=== PATIENT | male | born 2000 | race Hispanic/Latino ===

== ENCOUNTER 2023-07-22 19:39 | Observation (INO) | payer MEDICAID ==
[~2023-07-22] VITALS: Ht 167.6 cm; Wt 52.3 kg
[2023-07-22 21:03] LABS: BASOPHILS # (AUTO) 0.09 K/uL (0.00-0.20); BASOPHILS % (AUTO) 0.4 % (0.0-5.0); EOSINOPHILS # (AUTO) 0.01 K/uL (0.00-0.70); HEMATOCRIT 47.4 % (42-54); IMMATURE GRANULOCYTE ABSOLUTE 0.23 K/uL (0-1); LYMPHOCYTES # (AUTO) 1.8 K/uL (1.0-4.8); LYMPHOCYTES % (AUTO) 8.8 % (21.0-51.0); MEAN CORPUSCULAR HEMOGLOBIN 30.4 pg (27.0-33.0); MEAN CORPUSCULAR HGB CONC 34.4 g/dL (32.0-36.0); MEAN CORPUSCULAR VOLUME 88.4 fL (79-99); MONOCYTES # (AUTO) 1.1 K/uL (0.1-1.0); MONOCYTES % (AUTO) 5.4 % (3.0-13.0); NEUTROPHILS # (AUTO) 17.5 K/uL (1.8-7.7); NEUTROPHILS % (AUTO) 84.3 % (40.0-77.0); PLATELET COUNT (AUTO) 260 K/uL (130-400); RED BLOOD CELL COUNT(AUTO) 5.36 MIL/uL (4.50-6.20); RED CELL DISTRIBUTION WIDTH 13.2 % (11.0-15.5); WHITE BLOOD COUNT (AUTO) 20.8 K/uL (4.8-10.8)
[2023-07-22 21:16] LABS: APPEARANCE,URINE CLOUDY (CLEAR); BILIRUBIN,URINE NEGATIVE (NEGATIVE); COLOR,URINE YELLOW (YELLOW); GLUCOSE, URINE (UA) NEGATIVE (NEGATIVE); KETONES,URINE 60 mg/dL (NEGATIVE); LEUKOCYTE ESTERASE ,URINE NEGATIVE Leu/uL (NEGATIVE); NITRATE,URINE NEGATIVE (NEGATIVE); OCCULT BLOOD,URINE NEGATIVE (NEGATIVE); PROTEIN,URINE 30 mg/dL (NEGATIVE)
[2023-07-22 21:17] LABS: ADD UA MICROSCOPIC YES
[2023-07-22 21:19] LABS: AMPHET/METH SCREEN,URINE NEGATIVE (NEGATIVE); BARBITURATE SCREEN, URINE NEGATIVE (NEGATIVE); BENZODIAZEPINES SCREEN,URINE NEGATIVE (NEGATIVE); CANNABINOID SCREEN,URINE POSITIVE (NEGATIVE); COCAINE SCREEN,URINE NEGATIVE (NEGATIVE); OPIATE SCREEN,URINE NEGATIVE (NEGATIVE); PHENCYCLIDINE SCREEN,URINE NEGATIVE (NEGATIVE)
[2023-07-22 21:20] LABS: BACTERIA,URINE RARE /HPF (None Seen); MUCUS,URINE MOD LPF (None Seen); OTHER CASTS, URINE 4 /LPF (None Seen); UNCLASSIFIED CRYSTAL 3 /HPF (None Seen); WBC CLUMP FEW /HPF (0-1); YEAST,URINE BUDDING MOD /HPF (None Seen)
[2023-07-22 21:24] LABS: POTASSIUM 3.1 mmol/L (3.5-5.1)
[2023-07-22 21:29] LABS: ALBUMIN 4.7 g/dL (3.5-5.0); TOTAL PROTEIN, SERUM 8.6 g/dL (6.0-8.3)
[2023-07-22] MEDS ORDERED: ONDANSETRON 4MG INJ IVP ONE (21:30)
[2023-07-22] MEDS ORDERED: ZOSYN 3.375GM +NS 50ML IVPB SCH (21:30)
[2023-07-22] MEDS ORDERED: 0.9%NACL 1000ML 2,000 ML IV ONE (21:30)
[2023-07-22] MEDS ORDERED: MORPHINE 4 MG SYG IVP ONE (21:30)
[2023-07-22 21:39] LABS: RAPID GROUP A STREP negative (NEGATIVE)
[2023-07-22] MEDS ORDERED: 0.9%NACL 1000ML 1,000 ML IV ONE (21:39)
[2023-07-22] MEDS ORDERED: MORPHINE 4 MG SYG ONE (21:40)
[2023-07-22 21:42] LABS: SARS-CoV-2, RNA, NAAT NEGATIVE SARS CoV-2 (NEGATIVE)
[2023-07-22 21:46] LABS: INFLUENZA TYPE A Negative For Type A (NEGATIVE); INFLUENZA TYPE B Negative For Type B (NEGATIVE)
[2023-07-22] MEDS ORDERED: IOHEXOL 350 MG/ML 100ML INFUS..BTL IV ONE (21:54)
[2023-07-22] MEDS ORDERED: POTASSIUM BICARB/CIT AC 25 MEQ TABLET.EFF PO ONE (22:30)
[2023-07-23] VITALS (7 sets, daily range): BP systolic 120–145; BP diastolic 63–85; PULSE 63–73; RESP 16–20; O2SAT 96
[2023-07-23] MEDS: ZOSYN 3.375GM +NS 50ML IVPB SCH ×3 (02:30→18:54)
[2023-07-23] MEDS ORDERED: MORPHINE 2 MG SYG IVP PRN (02:30)
[2023-07-23] MEDS ORDERED: ONDANSETRON 4MG INJ IV PRN (02:30)
[2023-07-23] MEDS ORDERED: ACETAMINOPHEN 325 MG TAB PO PRN ×2 (02:30)
[2023-07-23] MEDS: 0.9%NACL 1000ML 1,000 ML IV SCH ×2 (02:39→20:58)
[2023-07-23 06:37] LABS: HEMATOCRIT 40.7 % (42-54); MEAN CORPUSCULAR HEMOGLOBIN 30.1 pg (27.0-33.0); MEAN CORPUSCULAR HGB CONC 33.4 g/dL (32.0-36.0); RED BLOOD CELL COUNT(AUTO) 4.52 MIL/uL (4.50-6.20); RED CELL DISTRIBUTION WIDTH 13.4 % (11.0-15.5); WHITE BLOOD COUNT (AUTO) 12.2 K/uL (4.8-10.8)
[2023-07-23 06:47] LABS: PROTHROMBIN TIME 11.6 SEC (9.6-11.6)
[2023-07-23 06:48] LABS: PARTIAL THROMBOPLASTIN TIME 28.2 SEC (26.3-35.5)
[2023-07-23 06:49] LABS: ALBUMIN 3.7 g/dL (3.5-5.0); CREATININE 0.9 mg/dL (0.5-1.5); POTASSIUM 3.6 mmol/L (3.5-5.1); TOTAL PROTEIN, SERUM 6.7 g/dL (6.0-8.3)
[2023-07-23] MEDS ORDERED: 0.9%NACL 50ML IV SCH (09:00)
[2023-07-23] MEDS: FAMOTIDINE 20MG VIAL IV SCH ×2 (09:07→20:58)
[2023-07-24] MEDS: ZOSYN 3.375GM +NS 50ML IVPB SCH ×2 (01:39→09:53)
[2023-07-24 04:00] VITALS: BP 115/51; PULSE 56; RESP 18
[2023-07-24 05:52] LABS: BASOPHILS # (AUTO) 0.09 K/uL (0.00-0.20); BASOPHILS % (AUTO) 0.9 % (0.0-5.0); EOSINOPHILS # (AUTO) 0.19 K/uL (0.00-0.70); EOSINOPHILS % (AUTO) 1.8 % (0.0-8.0); HEMATOCRIT 41.9 % (42-54); IMMATURE GRANULOCYTE ABSOLUTE 0.08 K/uL (0-1); LYMPHOCYTES # (AUTO) 3.3 K/uL (1.0-4.8); MEAN CORPUSCULAR HGB CONC 33.7 g/dL (32.0-36.0); MEAN CORPUSCULAR VOLUME 89.1 fL (79-99); MONOCYTES # (AUTO) 0.9 K/uL (0.1-1.0); MONOCYTES % (AUTO) 8.2 % (3.0-13.0); NEUTROPHILS # (AUTO) 5.9 K/uL (1.8-7.7); NEUTROPHILS % (AUTO) 56.3 % (40.0-77.0); PLATELET COUNT (AUTO) 205 K/uL (130-400); WHITE BLOOD COUNT (AUTO) 10.4 K/uL (4.8-10.8)
[2023-07-24 06:14] LABS: BILIRUBIN,TOTAL 1.7 mg/dL (0.2-1.0); CREATININE 1.1 mg/dL (0.5-1.5); POTASSIUM 3.8 mmol/L (3.5-5.1); TOTAL PROTEIN, SERUM 7.3 g/dL (6.0-8.3)
[2023-07-24 08:00] VITALS: BP 115/71; PULSE 83; RESP 16; O2SAT 96
[2023-07-24] MEDS: 0.9%NACL 1000ML 1,000 ML IV SCH (08:30)
[2023-07-24] MEDS: FAMOTIDINE 20MG VIAL IV SCH (09:51)
[2023-07-24] MEDS ORDERED: CEPH500C2 PO (10:02)
[2023-07-24 11:59] VITALS: BP 117/58; PULSE 59; RESP 16
[2023-07-24 16:00] VITALS: BP 137/70; PULSE 67; RESP 18
== END 2023-07-24 17:50 | disposition home or self-care (01) ==
LOC: EDH 19:39 → EDHIP 19:40 → INTOOBSV 19:40 → 3BH 07-23 02:45
PROVIDERS: ADMIT Hospitalist; ATTEND Hospitalist
DX: K52.9 Noninfective gastroenteritis and colitis, unspecified (principal); Z20.822 Contact with and (suspected) exposure to COVID-19; D72.829 Elevated white blood cell count, unspecified; E87.6 Hypokalemia; E86.0 Dehydration; N39.0 Urinary tract infection, site not specified; F12.90 Cannabis use, unspecified, uncomplicated; Z79.899 Other long term (current) drug therapy
CPT/HCPCS: 96365; 96366 ×3; 96375 ×2; 99285; 80053 ×3; 80305; 83690; 85025 ×2; 87040 ×2; 87088; 87880; 87804 ×2; 83605; 81001; 36415 ×3; 87635; 74177; 96376 ×2; 96361 ×2; 85027; 85610; 85730; 84145; C9803; J7030 ×3; J2405; J2270 ×2; J2543 ×5; Q9967; G0378 ×23; S0028 ×3; J3490

== ENCOUNTER 2025-01-21 11:58 | Emergency (ER) | payer SELFPAY ==
[~2025-01-21] VITALS: Ht 165.1 cm; Wt 59.0 kg
[~2025-01-21 11:58] MED LIST: CEPH500C2 PO
--- NOTE | 2025-01-21 12:05 | ERN ---
ED Note History of Present Illness Stated Complaint: LEFT ANKLE PAIN Time Seen by MD: 12:00 Dictation: PATIENT IS A 24-YEAR-OLD MALE WITH DORSAL LEFT FOOT PAIN AFTER HE TWISTED IT AND FOOTBALL LAST NIGHT WHILE HE WAS PLAYING IN THE DARK. HE SAID HE WENT TO MAKE A TURN AND HE TWISTED HIS FOOT. DID NOT GO TO THE HOSPITAL LAST NIGHT BECAUSE HIS MOTHER WAS IN [place] TAKING CARE OF ANOTHER RELATIVE AND HE HAD NO RIDE TO THE HOSPITAL. HE HAS NOT TAKEN ANYTHING PRIOR TO ARRIVAL FOR PAIN. SKIN IS INTACT Allergies: Coded Allergies: No Known Allergies (Unverified Allergy, Unknown, 07/22/23) Home Meds Active Scripts Ibuprofen (Ibuprofen 800 mg Tab) 800 Mg Tab, 800 MG PO Q8H PRN for fever or pain, #30 TAB 0 Refills Prov:JOAQUIN CASIANO CAPACITY ANALYST 01/21/25 Cephalexin (Cephalexin) 500 Mg Capsule, 500 MG PO BID, #10 CAP 0 Refills Prov:GRACIA BINGHAM [employer] 07/24/23 Past Medical History Past Medical History: No Pertinent History Surgical History: None RN Note Reviewed/Agreed w/PFSH: Yes Review of System Dictation CONSTITUTIONAL: NEGATIVE EXCEPT FOR HPI HEAD/FACE: NEGATIVE EXCEPT FOR HPI EENT: NEGATIVE EXCEPT FOR HPI RESPIRATORY: NEGATIVE EXCEPT FOR HPI GASTROINTESTINAL/ABDOMINAL: NEGATIVE EXCEPT FOR HPI GENITOURINARY: NEGATIVE EXCEPT FOR HPI MUSCULOSKELETAL: NEGATIVE EXCEPT FOR HPI LEFT FOOT PAIN INTEGUMENTARY: NEGATIVE EXCEPT FOR HPI NEUROLOGICAL/PSYCH: NEGATIVE EXCEPT FOR HPI HEMATOLOGIC/LYMPHATIC: NEGATIVE EXCEPT FOR HPI ALL SYSTEMS NEGATIVE, EXCEPT NOTED ABOVE. 13 POINT REVIEW OF SYSTEMS ASSESSED AND ALL NEGATIVE EXCEPT FOR ABOVE. Initial Vital Sign VS Vital Signs Date Time Temp Pulse Resp B/P (MAP) Pulse Ox O2 Delivery O2 Flow Rate FiO2 01/21/25 12:03 98.1 68 16 111/76 96 Room Air 0 01/21/25 12:07 21 Physical Exam Dictation VITAL SIGNS REVIEWED GENERAL APPEARANCE: ALERT, ORIENTED X 3, MILD ACUTE DISTRESS, WELL DEVELOPED, NOURISHED. HEAD AND FACE: NON-TRAUMATIC. EYES: PERRL, PINK CONJUNCTIVAS, EYELID NO TRAUMA, ANTERIOR CHAMBER WITH ARCUS SENILIS. EARS: PINNAS INTACT AND NO SIGNS OF TRAUMA OR ERYTHEMA EAR CANALS CLEAR AND NO DISCHARGE TM NO ERYTHEMA NOSE: NO DISCHARGE, NO BLEEDING. OROPHARYNX: MOUTH NORMAL, TONGUE PINK, PHARYNX CLEAR,NO ERYTHEMA, TONSILS NO EXUDATES, NO ABSCESSES NOTED, MUCOUS MEMBRANE MOIST NECK: SUPPLE, NON-TENDER, NO THYROMEGALY, NO MASSES, NO JVD, NO BRUITS BREAST:DEFERRED CHEST:NO TENDERNESS, NO CREPITUS, NO PARADOXICAL MOVEMENT, NO RETRACTIONS LUNGS:CLEAR, WELL-VENTILATED, SYMMETRIC, NO RALES, NO WHEEZING, NO RHONCHI, NO STRIDOR, GOOD BREATH SOUNDS BILATERALLY HEART: REGULAR RATE, REGULAR RHYTHM, NO MURMUR, NO GALLOPS VASCULAR: NO PERIPHERAL EDEMA, ABDOMEN: SOFT, POSITIVE BOWEL SOUNDS, NONDISTENDED, NO GUARDING, NONTENDER, NO REBOUND, NO MASSES NO HEPATOMEGALY, NO SPLENOMEGALY, NO MADRID'S SIGN, NO HERNIAS. RECTAL: DEFERRED GENITAL: DEFERRED NEUROLOGICAL: NORMAL SPEECH, MOTOR FUNCTION INTACT, SENSORY FUNCTION INTACT MUSCULOSKELETAL: NECK NONTENDER, FULL RANGE OF MOTION, BACK NONTENDER, FULL RANGE OF MOTION, EXTREMITIES: MILD LEFT DORSAL FOOT TENDERNESS TO 1ST 2ND AND 3RD METATARSALS. SKIN INTACT DECREASED RANGE OF MOTION SECONDARY TO PAIN SKIN: COLOR PINK, DRY, NO TURGOR, NO RASH, NO LACERATIONS, NO ABRASIONS, NO CONTUSIONS. LYMPHATIC: DEFERRED Results (Laboratory/Radiology) Laboratory/Radiology 1140/left foot x-ray negative Labs Reviewed?: Yes ED Course ED Course Orders Procedure Category Date Status Time Foot Comp 3+Vws Lt RAD 01/21/25 Resulted 12:02 Ibuprofen 800 Mg Tab PHA 01/21/25 Complete (Motrin) 12:30 Crutches W/Training CPOE 01/21/25 Transmitted (Er) 12:02 Current Medications Medications (Trade) Dose Ordered Sig/[place] Route PRN Reason Start Time Stop Time Status Last Admin Dose Admin Ibuprofen (moTRIN) 800 mg ONCE ONCE PO 01/21/25 12:30 01/21/25 12:31 DC 01/21/25 12:50 Vital Signs Date Time Temp Pulse Resp B/P (MAP) Pulse Ox O2 Delivery O2 Flow Rate FiO2 01/21/25 12:07 98.1 68 16 111/76 98 Room Air* 0 21 01/21/25 12:03 98.1 68 16 111/76 96 Room Air 0 1142/patient discharged home on crutches with ibuprofen told to follow up with in the next 2-3 days, call for an appointment. No weight-bearing until cleared Medical Decision Making MDM Medical discharge making based on pain management and x-ray of left foot. X-ray negative Diagnosed with left foot sprain Provided with crutches and no weight-bearing instructions until cleared by Orthopedics DX & DISP Disposition: Discharge Departure Impression: Primary Impression: Sprain of left foot Condition: Stable Scripts Ibuprofen (Ibuprofen 800 mg Tab) 800 Mg Tab 800 MG PO Q8H PRN for fever or pain, #30 TAB 0 Refills Prov: JOAQUIN CASIANO NP 01/21/25 Additional Instructions: Follow-up with primary care provider in 1 to 2 days. Take medications as directed here in the emergency room. Okay to continue home medications unless otherwise discussed during your visit in the emergency room today. Return to your nearest emergency room if symptoms worsen or if there is no improvement. Call 911 if you need immediate assistance. Take Tylenol or Motrin [id number] as needed and if no contraindications are present. Increase oral hydration. A wound culture or urine culture was ordered here in the emergency room department please follow-up with primary care provider and advise them to get repeat ports from our facility. If you had any Marshal wrap/splints that were applied here, please do not remove them until you see your primary care or specialty. Crutches no weight-bearing until cleared by Orthopedics, call for an appointment on Thursday. Cool compresses to left foot three to 4 times a day. Take ibuprofen as needed for pain with food. Referrals: SELF,REFERRAL (PCP) GERALDINE HUTCHINS MD Time of Disposition: 12:44 I have reviewed the case, and I agree with, Diagnosis and Plan JOAQUIN CASIANO NP Jan 21, 2025 12:05 RHYS NAVARRETE DO Jan 23, 2025 07:35
[2025-01-21 12:07] VITALS: BP 111/76; PULSE 68; RESP 16; TEMP 98; O2SAT 98
[2025-01-21] MEDS ORDERED: IBUP-2077 PO (12:45)
[2025-01-21] MEDS: ibuPROFEN 800 MG TAB PO ONE (12:50)
--- NOTE | 2025-01-21 21:43 | HMCIMG ---
LEFT FOOT RADIOGRAPHS - 3 VIEWS INDICATION: Dorsal foot tenderness COMPARISON: None FINDINGS: AP, lateral, and oblique views. Examination provided for interpretation at 9:41 PM on 01/21/2025. No fracture or subluxation identified. Midfoot alignment is well maintained. No radiopaque foreign body noted. IMPRESSION: No evidence for fracture or subluxation.
== END 2025-01-21 13:11 | disposition home or self-care (01) ==
LOC: EDH 11:58
DX: S93.692A Other sprain of left foot, initial encounter (principal); Z79.899 Other long term (current) drug therapy; X50.1XXA Overexertion from prolonged static or awkward postures, initial encounter; Y93.89 Activity, other specified; Y92.89 Other specified places as the place of occurrence of the external cause; Y99.8 Other external cause status
CPT/HCPCS: 73630; 99283

== ENCOUNTER 2025-03-19 10:26 | Inpatient (IN) | payer SELFPAY ==
[~2025-03-19] VITALS: Ht 167.6 cm; Wt 54.4 kg
[~2025-03-19 10:26] MED LIST changes: +IBUP-2077 PO
--- NOTE | 2025-03-19 10:42 | ERN ---
ED Note History of Present Illness Stated Complaint: ABDOMINAL PAIN Chief Complaint: Abdominal Pain Time Seen by MD: 10:30 Dictation: Patient is a 24-year-old male here with complaints of acute onset of periumbilical right lower quadrant pain tenderness. Onset was 0 400 this morning he denies nausea vomiting no diarrhea. No flank pain no change in urination. Allergies: Coded Allergies: No Known Allergies (Unverified Allergy, Unknown, 07/22/23) Home Meds Active Scripts Ibuprofen (Ibuprofen 800 mg Tab) 800 Mg Tab, 800 MG PO Q8H PRN for fever or pain, #30 TAB 0 Refills Prov:JOAQUIN CASIANO ADDICTIONS RECOVERY SPECIALIST 01/21/25 Cephalexin (Cephalexin) 500 Mg Capsule, 500 MG PO BID, #10 CAP 0 Refills Prov:GRACIA BINGHAM POCKET OPERATOR 07/24/23 Past Medical History Past Medical History: No Pertinent History Surgical History: None RN Note Reviewed/Agreed w/PFSH: Yes Review of System Dictation CONSTITUTIONAL: Negative except for HPI HEAD/FACE: Negative except for HPI EENT: Negative except for HPI RESPIRATORY: Negative except for HPI GASTROINTESTINAL/ABDOMINAL: Negative except for HPI periumbilical and right lower quadrant pain tenderness GENITOURINARY: Negative except for HPI MUSCULOSKELETAL: Negative except for HPI INTEGUMENTARY: Negative except for HPI NEUROLOGICAL/PSYCH: Negative except for HPI HEMATOLOGIC/LYMPHATIC: Negative except for HPI All Systems Negative, Except as noted above. 13 point review of systems assessed and all negative except for above. Initial Vital Sign VS Vital Signs Date Time Temp Pulse Resp B/P (MAP) Pulse Ox O2 Delivery O2 Flow Rate FiO2 03/19/25 10:36 97.2 70 18 121/73 100 Room Air 0 03/19/25 11:00 21 Physical Exam Dictation Vital Signs reviewed General Appearance: Alert, oriented x 3, moderate acute distress, well developed, nourished. Head and Face: non-traumatic. Eyes: PERRL, pink conjunctivas, eyelid no trauma, anterior chamber with arcus senilis. Ears: Pinnas intact and no signs of trauma or erythema ear canals clear and no discharge TM no erythema Nose: No discharge, no bleeding. Oropharynx: Mouth normal, tongue pink, pharynx clear,no erythema, tonsils no exudates, no abscesses noted, mucous membrane moist Neck: Supple, non-tender, no thyromegaly, no masses, no JVD, no bruits Breast:Deferred Chest:No tenderness, no crepitus, no paradoxical movement, no retractions Lungs:Clear, well-ventilated, symmetric, no rales, no wheezing, no rhonchi, no stridor, good breath sounds bilaterally Heart: Regular rate, regular rhythm, no murmur, no gallops Vascular: no peripheral edema, Abdomen: Soft, positive bowel sounds, nondistended, no guarding, Moderate periumbilical tenderness without rebound. Rectal: Deferred Genital: Deferred Neurological: Normal speech, motor function intact, sensory function intact Musculoskeletal: Neck nontender, full range of motion, back nontender, full range of motion, Extremities: nontender, full range of motion Skin: Color pink, dry, no turgor, no rash, no lacerations, no abrasions, no contusions. Lymphatic: Deferred Results (Laboratory/Radiology) Laboratory/Radiology Laboratory Tests Test 03/19/25 11:04 03/19/25 11:44 03/19/25 15:56 03/19/25 21:17 White Blood Count 22.9 K/uL (4.8-10.8) H Red Blood Count 5.32 MIL/uL (4.50-6.20) Hemoglobin 16.1 g/dL (14.0-18.0) Hematocrit 46.6 % (42-54) Mean Corpuscular Volume 87.6 fL (79-99) Mean Corpuscular Hemoglobin 30.3 pg (27.0-33.0) Mean Corpuscular Hemoglobin Concent 34.5 g/dL (32.0-36.0) Red Cell Distribution Width 12.7 % (11.0-15.5) Platelet Count 278 K/uL (130-400) Mean Platelet Volume 10.4 fL (7.5-10.5) Immature Granulocyte % (Auto) 1.4 % (0-1) H Neutrophils (%) (Auto) 81.8 % (40.0-77.0) H Lymphocytes (%) (Auto) 12.6 % (21.0-51.0) L Monocytes (%) (Auto) 3.8 % (3.0-13.0) Eosinophils (%) (Auto) 0.0 % (0.0-8.0) Basophils (%) (Auto) 0.4 % (0.0-5.0) Neutrophils # (Auto) 18.7 K/uL (1.8-7.7) H Lymphocytes # (Auto) 2.9 K/uL (1.0-4.8) Monocytes # (Auto) 0.9 K/uL (0.1-1.0) Eosinophils # (Auto) 0.00 K/uL (0.00-0.70) Basophils # (Auto) 0.09 K/uL (0.00-0.20) Absolute Immature Granulocyte (auto 0.33 K/uL (0-1) Nucleated Red Blood Cells 0.0 % (0.0-0.19) Erythrocyte Sedimentation Rate 1 MM/HR (0-15) Prothrombin Time 10.7 SEC (9.6-11.6) Prothromb Time International Ratio 1.01 (0.85-1.15) Activated Partial Thromboplast Time 23.5 SEC (26.3-35.5) L Sodium Level 141 mmol/L (136-145) 138 mmol/L (136-145) Potassium Level 3.4 mmol/L (3.5-5.1) L 3.8 mmol/L (3.5-5.1) Chloride Level 100 mmol/L (101-111) L 106 mmol/L (101-111) Carbon Dioxide Level 16 mmol/L (21-32) L 19 mmol/L (21-32) L Blood Urea Nitrogen 18 mg/dL (7-18) 15 mg/dL (7-18) Creatinine 1.4 mg/dL (0.5-1.3) H 1.2 mg/dL (0.5-1.3) Glomerular Filtration Rate Calc 72 mL/min (>90) 87 mL/min (>90) Random Glucose 92 mg/dL (70-105) 78 mg/dL (70-105) Total Calcium 9.7 mg/dL (8.5-10.1) 8.7 mg/dL (8.5-10.1) Magnesium Level 1.90 mg/dL (1.80-2.40) Total Bilirubin 0.7 mg/dL (0.2-1.0) Direct Bilirubin 0.1 mg/dL (0.0-0.3) Aspartate Amino Transf (AST/SGOT) 18 U/L (10-37) Alanine Aminotransferase (ALT/SGPT) 18 U/L (12-78) Alkaline Phosphatase 72 U/L (50-136) Lactate Dehydrogenase 152 U/L (81-234) C-Reactive Protein, Quantitative 0.70 mg/L (0.5-3.0) Total Protein 7.9 g/dL (6.0-8.3) Albumin 4.6 g/dL (3.5-5.0) Lipase 19 U/L (16-77) Procalcitonin < 0.05 ng/mL (0.05-0.5) L Lactic Acid Level 6.5 mmol/L (0.8-2.5) H 1.5 mmol/L (0.8-2.5) Test 03/19/25 21:20 03/20/25 07:08 03/20/25 08:18 03/21/25 04:38 Urine Color LIGHT-YELLOW (YELLOW) Urine Appearance CLEAR (CLEAR) Urine pH 5.5 (5.0-8.0) Urine Specific [place] 1.045 (1.001-1.031) Urine Protein NEGATIVE mg/dL (NEGATIVE) Urine Glucose (UA) NEGATIVE mg/dL (NEGATIVE) Urine Ketones 150 mg/dL (NEGATIVE) H Urine Occult Blood NEGATIVE (NEGATIVE) Urine Nitrate NEGATIVE (NEGATIVE) Urine Bilirubin NEGATIVE mg/dL (NEGATIVE) Urine Urobilinogen 0.2 mg/dL (0.2-1.0) Urine Leukocyte Esterase NEGATIVE Sumeet/uL Urine RBC 0-1 /HPF (0-1) Urine WBC 0-1 /HPF (0-1) Urine Squamous Epithelial Cells RARE /HPF (0-2) Urine Bacteria None /HPF (None Seen) Urine Opiates Screen POSITIVE (NEGATIVE) H Urine Barbiturates Screen NEGATIVE (NEGATIVE) Urine Phencyclidine Screen NEGATIVE (NEGATIVE) Urine Amphetamines Screen NEGATIVE (NEGATIVE) Urine Benzodiazepines Screen NEGATIVE (NEGATIVE) Urine Cocaine Screen NEGATIVE (NEGATIVE) Urine Marijuana (THC) Screen POSITIVE (NEGATIVE) H White Blood Count 12.0 K/uL (4.8-10.8) #H 9.6 K/uL (4.8-10.8) Red Blood Count 4.24 MIL/uL (4.50-6.20) #L 4.42 MIL/uL (4.50-6.20) L Hemoglobin 12.8 g/dL (14.0-18.0) #L 13.2 g/dL (14.0-18.0) L Hematocrit 37.8 % (42-54) L 38.2 % (42-54) L Mean Corpuscular Volume 89.2 fL (79-99) 86.4 fL (79-99) Mean Corpuscular Hemoglobin 30.2 pg (27.0-33.0) 29.9 pg (27.0-33.0) Mean Corpuscular Hemoglobin Concent 33.9 g/dL (32.0-36.0) 34.6 g/dL (32.0-36.0) Red Cell Distribution Width 13.0 % (11.0-15.5) 12.2 % (11.0-15.5) Platelet Count 189 K/uL (130-400) # 194 K/uL (130-400) Mean Platelet Volume 10.4 fL (7.5-10.5) 10.3 fL (7.5-10.5) Immature Granulocyte % (Auto) 0.4 % (0-1) 0.3 % (0-1) Neutrophils (%) (Auto) 64.5 % (40.0-77.0) 60.9 % (40.0-77.0) Lymphocytes (%) (Auto) 25.4 % (21.0-51.0) 27.9 % (21.0-51.0) Monocytes (%) (Auto) 8.1 % (3.0-13.0) 9.4 % (3.0-13.0) Eosinophils (%) (Auto) 0.9 % (0.0-8.0) 1.1 % (0.0-8.0) Basophils (%) (Auto) 0.7 % (0.0-5.0) 0.4 % (0.0-5.0) Neutrophils # (Auto) 7.7 K/uL (1.8-7.7) 5.9 K/uL (1.8-7.7) Lymphocytes # (Auto) 3.1 K/uL (1.0-4.8) 2.7 K/uL (1.0-4.8) Monocytes # (Auto) 1.0 K/uL (0.1-1.0) 0.9 K/uL (0.1-1.0) Eosinophils # (Auto) 0.11 K/uL (0.00-0.70) 0.11 K/uL (0.00-0.70) Basophils # (Auto) 0.08 K/uL (0.00-0.20) 0.04 K/uL (0.00-0.20) Absolute Immature Granulocyte (auto 0.05 K/uL (0-1) 0.03 K/uL (0-1) Nucleated Red Blood Cells 0.0 % (0.0-0.19) 0.0 % (0.0-0.19) Sodium Level 135 mmol/L (136-145) L 137 mmol/L (136-145) Potassium Level 3.8 mmol/L (3.5-5.1) 3.6 mmol/L (3.5-5.1) Chloride Level 104 mmol/L (101-111) 103 mmol/L (101-111) Carbon Dioxide Level 22 mmol/L (21-32) 24 mmol/L (21-32) Blood Urea Nitrogen 13 mg/dL (7-18) 8 mg/dL (7-18) Creatinine 1.0 mg/dL (0.5-1.3) 1.0 mg/dL (0.5-1.3) Glomerular Filtration Rate Calc 108 mL/min (>90) 108 mL/min (>90) Random Glucose 74 mg/dL (70-105) 100 mg/dL (70-105) Total Calcium 8.7 mg/dL (8.5-10.1) 8.7 mg/dL (8.5-10.1) Magnesium Level 1.90 mg/dL (1.80-2.40) Total Bilirubin 1.3 mg/dL (0.2-1.0) #H 0.8 mg/dL (0.2-1.0) # Aspartate Amino Transf (AST/SGOT) 17 U/L (10-37) 14 U/L (10-37) Alanine Aminotransferase (ALT/SGPT) 17 U/L (12-78) 15 U/L (12-78) Alkaline Phosphatase 61 U/L (50-136) 58 U/L (50-136) Total Protein 6.7 g/dL (6.0-8.3) 6.8 g/dL (6.0-8.3) Albumin 3.7 g/dL (3.5-5.0) 3.8 g/dL (3.5-5.0) Whole Blood Ketones Quantitative 2.9 mmol/L (0.0-0.6) H Lactic Acid Level 1.3 mmol/L (0.8-2.5) 1.3 mmol/L (0.8-2.5) Total Creatine Kinase 120 U/L (21-232) C-Reactive Protein, Quantitative 4.50 mg/L (0.5-3.0) H 1125/ultrasound inconclusive [place]. [place] [address] white count, we will follow up with CT with contrast to rule out appendicitis acquired for interpretation. CT was performed with one or more of the following dose reduction techniques: Automated exposure control, adjustment of the mA and/or kV according to patient size, or use of iterative reconstruction technique. COMPARISON: None FINDINGS: ABDOMEN: Heart size is normal. Visible lung bases are clear. The liver is normal in size and smooth in contour without lesions or biliary duct dilation. The spleen is normal in size without lesions. The gallbladder appears normal. The pancreas appears normal without pancreatic duct dilation. The adrenal glands appear normal. Both kidneys appear unremarkable. Cortical nephrograms are symmetric and normal in appearance bilaterally. No evidence for intra-abdominal free air or organized fluid collection. No retrocrural, intraabdominal, or retroperitoneal lymphadenopathy identified. No aortic aneurysmal dilation or dissection identified. PELVIS: No evidence for free air or organized pelvic fluid collection. No significant pelvic adenopathy detected. Mild to moderate submucosal edema along the proximal colon and mild along the distal colon some of which may be exaggerated by incomplete distention. Terminal ileum appears normal. The appendix appears normal. The urinary bladder appears unremarkable. Visible osseous structures are intact. IMPRESSION: Suspect mild inflammatory or infectious proximal and distal colitis. Labs Reviewed?: Yes ED Course ED Course Orders Procedure Category Date Status Time Cbc With Differential LAB 03/19/25 Complete 10:40 0.9%Nacl 1000ml (Ns PHA 03/19/25 Complete 1000ml) 11:00 Ketorolac PHA 03/19/25 Complete Tromethamine 30mg/Ml 11:00 Lipase LAB 03/19/25 Complete 10:40 Basic Metabolic Panel LAB 03/19/25 Complete 10:40 Us Abd Limited/Abd US 03/19/25 Resulted Wall 10:40 Blood Cult SATISH 03/19/25 In Process 11:22 Lactic Acid LAB 03/19/25 Complete 11:22 Ct Abdomen/Pelvis CT 03/19/25 Resulted W/Contrast 11:23 Zosyn 3.375gm+Ns 50ml PHA 03/19/25 Complete (Zosyn 3.375gm+Ns 11:30 Iohexol (Omnipaque) PHA 03/19/25 Complete 11:44 0.9%Nacl 1000ml (Ns PHA 03/19/25 Complete 1000ml) 12:30 Edm Admit Bridge Order ADM 03/19/25 Transmitted 12:59 Lactated Ringers PHA 03/19/25 Complete 1000ml (Lactated 15:00 Admit Orders ADM 03/19/25 Transmitted 13:04 Pantoprazole 40mg Inj PHA 03/19/25 Complete (Protonix 40mg Inj 13:30 Hepatic Function Panel LAB 03/19/25 Complete 13:09 Erythrocyte LAB 03/19/25 Complete Sedimentation Rate 13:09 Crp Quantitative LAB 03/19/25 Complete 13:09 Procalcitonin LAB 03/19/25 Complete 13:09 Lactate Dehydrogenase LAB 03/19/25 Complete 13:09 Magnesium LAB 03/19/25 Complete 13:09 Zosyn 3.375gm+Ns 50ml PHA 03/19/25 Complete (Zosyn 3.375gm+Ns 20:00 0.9%Nacl 50ml (Ns PHA 03/19/25 Complete 50ml) 18:00 Keep Patient Npo CPOE 03/19/25 Transmitted 13:09 Fall Precautions CPOE 03/19/25 Transmitted 13:12 Aspiration Precautions CPOE 03/19/25 Transmitted 13:12 Telemetry Monitoring CPOE 03/19/25 Transmitted 13:12 Elevate Hob At 30 CPOE 03/19/25 Transmitted Degrees 13:12 Acetaminophen 325 Tab PHA 03/19/25 Complete (Tylenol 325mg Tab 13:30 Ondansetron 4mg Inj PHA 03/19/25 Complete (Zofran 4mg Inj) 13:30 Morphine 2mg Syg PHA 03/19/25 Complete (Morphine 2mg Syg) 13:30 Thiamine Hcl (Vitamin PHA 03/19/25 Complete B-1) 13:30 Scd Both Legs While CPOE 03/19/25 Transmitted In Bed 13:13 Initiate Npo MERRICK 03/19/25 Complete Hypokalemia Odin 13:13 Potassium Chloride PHA 03/19/25 Complete 20meq/100ml ([place] 13:30 Notify Physician If CPOE 03/19/25 Transmitted There Is 13:13 Notify Md On The Next CPOE 03/19/25 Transmitted 13:13 Notify Md On The CPOE 03/19/25 Transmitted Next(Cont.) 13:13 Pt And Ptt LAB 03/19/25 Complete 13:13 Urinalysis Profile LAB 03/19/25 Complete 13:13 Drug Screen Urine LAB 03/19/25 Complete 13:13 Gastroenterology CONPHYSVC 03/19/25 Transmitted Consult 13:15 General Surgery CONPHYSVC 03/19/25 Transmitted Consult 13:15 Cbc With Differential LAB 03/20/25 Complete 04:00 Comprehensive LAB 03/20/25 Complete Metabolic Panel 04:00 Magnesium LAB 03/20/25 Complete 04:00 Lactic Acid (Removed) LAB 03/19/25 Complete 14:58 Basic Metabolic Panel LAB 03/19/25 Complete 21:00 Lactic Acid LAB 03/20/25 Complete 07:11 Ketone Blood LAB 03/20/25 Complete Quantitative 07:11 Creatine Kinase, Total LAB 03/20/25 Complete 07:11 Chest 1vw RAD 03/20/25 Resulted 07:11 Cbc With Differential LAB 03/21/25 Complete 04:00 Comprehensive LAB 03/21/25 Complete Metabolic Panel 04:00 Crp Quantitative LAB 03/21/25 Complete 04:00 Lactic Acid LAB 03/21/25 Complete 04:00 Dextrose 5 % And 0.9 PHA 03/20/25 Complete % Nacl (D5ns) 14:30 Transfer To: OE 03/20/25 Transmitted 15:06 Ceftriaxone 1g Vial PHA 03/20/25 Complete (Rocephine 1g Inj) 15:30 Metronidazole PHA 03/20/25 Complete 500mg/100ml Bag 15:30 Clear Liquid DIET 03/20/25 Complete Dinner Consent Colonoscopy CPOE 03/20/25 Transmitted In [facility] 15:36 Npo After Midnight MERRICK 03/20/25 Transmitted 15:36 Obtain Consent For: CPOE 03/20/25 Transmitted 15:36 Metronidazole PHA 03/20/25 Complete 500mg/100ml Bag 18:00 Peg 3350/Na PHA 03/20/25 Complete Sulf,Bicarb,Cl/Kcl 18:00 Vital Signs Date Time Temp Pulse Resp B/P (MAP) Pulse Ox O2 Delivery O2 Flow Rate FiO2 03/21/25 09:18 99 Room Air* 0 03/21/25 08:00 98.1 66 18 119/70 95 Room Air 03/21/25 04:00 97.9 66 20 118/60 100 Room Air 03/21/25 00:33 97.7 65 20 124/83 100 Room Air 03/20/25 19:05 100 Room Air* 0 03/20/25 19:00 98.1 66 20 120/65 100 Room Air 03/20/25 18:21 98.1 71 18 128/75 100 Room Air 03/20/25 18:03 99 Room Air* 0 03/20/25 13:54 97.9 66 17 110/73 100 Room Air* 0 03/20/25 12:00 87 17 114/68 100 Room Air 0.0 03/20/25 08:00 98.6 59 17 106/67 100 Room Air 03/20/25 05:38 97.9 75 14 108/60 100 Room Air* 0 03/20/25 00:07 97.9 63 14 102/58 100 Room Air* 0 03/19/25 20:49 97.9 63 14 111/58 100 Room Air* 0 03/19/25 18:00 98.2 83 14 99/58 98 Room Air* 0 03/19/25 11:00 97.9 56 17 111/64 98 Room Air* 0 03/19/25 10:36 97.2 70 18 121/73 100 Room Air 0 1130/PATIENT [place] 43825 WBCS WITH 6.5 LACTIC ACID. BICARB IS 16. INITIALLY, ORDERED 1 L OF NORMAL SALINE WITH TORADOL. WE WILL GIVE ZOSYN 3.375 IN ORDER FULL FLUID RESUSCITATION OF 30 PER KILOS FLUIDS BASED ON HIS WEIGHT. HE IS AWARE HE WILL BE ADMITTED TO THE HOSPITAL, REMAINS HEMODYNAMICALLY STABLE. 1255/DR DARLING HERE AND CT ULTRASOUND LABS REVIEWED. HE IS ALSO AWARE THAT PATIENT HAD FULL FLUID RESUSCITATION OF 30 PER KILOS FLUIDS WITH ZOSYN. AGREED TO ADMIT PATIENT. Medical Decision Making MDM MDM: DIFFERENTIAL DIAGNOSIS: APPENDICITIS/DIVERTICULITIS/HERNIA/UTI/PYELO NEPHRITIS/ELECTROLYTE IMBALANCE/DEHYDRATION/SEPSIS RATIONALE: TESTS CONSIDERED AND ORDERED SECONDARY TO SHARED DECISION MAKING I NCLUDE: LABS, AND RADIOLOGY PREVIOUS OUTSIDE RECORDS REVIEWED: OLD ER VISITS. RISK OF COMPLICATION AND/OR MORBIDITY OR MORTALITY OF PATIENT MANAGEMENT: MODERATE MEDICATIONS-PER MEDICATION RECONCILIATION NEED FOR HOSPITALIZATION: PATIENT DOES MEET CRITERIA FOR HOSPITALIZATION. PATIENT ADMITTED TO THE HOSPITAL FOR FLUID RESUSCITATION IV ANTIBIOTICS NEED FOR EMERGENCY MAJOR/MINOR SURGERY: NO THERE ARE NO SOCIAL CONCERNS WITH THIS PATIENT. PRESCRIPTION DRUG MANAGEMENT PRESCRIPTIONS WILL INCLUDE SYMPTOMATIC CARE PATIENT'S PRIOR EXTERNAL MEDICAL RECORDS FROM OTHER ER VISITS WERE REVIEWED BY ME INDICATED. PRIOR TESTING AND RESULTS FROM PREVIOUS VISITS WERE REVIEWED. PRIOR TESTS WERE TAKEN INTO ACCOUNT WITH MEDICAL DECISION MAKING AND RESOURCE UTILIZATION, INDEPENDENT HISTORIAN/HISTORIANS WERE USED TO OBTAIN COMPLETE MEDICAL HISTORY. I INDEPENDENTLY INTERPRETED THE TEST THAT WERE PERFORMED, RESULTS WERE REVIEWED BY ME AND CONSIDERED FINDINGS ON RADIOLOGY IF ORDERED. MEDICAL MANAGEMENT AND EXAMINATION INTERPRETATION DISCUSSIONS WERE HAD BY ME WITH OTHER QUALIFIED HEALTHCARE PROFESSIONALS INDICATED FOR THE PATIENT'S CARE. DX & DISP Disposition: Inpatient Decision to Admit Time: 12:57 Departure Impression: Primary Impression: Colitis Additional Impressions: Acute kidney injury, Hypokalemia, Hypochloremia, Severe sepsis Critical Time: 30 minutes (Critical Care Procedure NoteAuthorized and Performed by: meTotal critical care time: Approximately 36 minutesDue to a high probability of clinically significant, life threatening deterioration, the patient required my highest level of preparedness to intervene emergently and I personally spent this critical care time directly and personally managing the patient. This critical care time included obtaining a history; examining the patient; pulse oximetry; ordering and review of studies; arranging urgent treatment with development of a management plan; evaluation of patient's response to treatment; frequent reassessment; and, discussions with other providers.This critical care time was performed to assess and manage the high probability of imminent, life-threatening deterioration that could result in multi-organ failure. It was exclusive of separately billable procedures and treating other patients and teaching time.Please see MDM section and the rest of the note for further information on patient assessment and treatment.) Condition: Stable Referrals: SELF,REFERRAL (PCP) Time of Disposition: 12:57 I have reviewed the case, and I agree with, Diagnosis and Plan I performed a substantive portion of the visit. I have reviewed and personally made and approve the management plan that is documented in the notes by myself with [place]/resident. I acknowledged full responsibility for the patient's management plan. JOAQUIN CASIANO NP Mar 19, 2025 10:42 RHYS NAVARRETE DO Mar 22, 2025 07:16
--- NOTE | 2025-03-19 11:00 | NUR ---
PLACED 20G ON LEFT ANTECUBITAL.
[2025-03-19] MEDS: 0.9%NACL 1000ML 1,000 ML IV ONE (11:12)
[2025-03-19] MEDS: ketOROlac 30MG VIAL (30MG/ML) IVP ONE (11:12)
[2025-03-19 11:17] LABS: BASOPHILS # (AUTO) 0.09 K/uL (0.00-0.20); BASOPHILS % (AUTO) 0.4 % (0.0-5.0); HEMATOCRIT 46.6 % (42-54); IMMATURE GRANULOCYTE ABSOLUTE 0.33 K/uL (0-1); LYMPHOCYTES # (AUTO) 2.9 K/uL (1.0-4.8); LYMPHOCYTES % (AUTO) 12.6 % (21.0-51.0); MEAN CORPUSCULAR HEMOGLOBIN 30.3 pg (27.0-33.0); MEAN CORPUSCULAR HGB CONC 34.5 g/dL (32.0-36.0); MEAN CORPUSCULAR VOLUME 87.6 fL (79-99); MONOCYTES # (AUTO) 0.9 K/uL (0.1-1.0); MONOCYTES % (AUTO) 3.8 % (3.0-13.0); NEUTROPHILS # (AUTO) 18.7 K/uL (1.8-7.7); NEUTROPHILS % (AUTO) 81.8 % (40.0-77.0); PLATELET COUNT (AUTO) 278 K/uL (130-400); RED BLOOD CELL COUNT(AUTO) 5.32 MIL/uL (4.50-6.20); RED CELL DISTRIBUTION WIDTH 12.7 % (11.0-15.5); WHITE BLOOD COUNT (AUTO) 22.9 K/uL (4.8-10.8)
[2025-03-19 11:24] LABS: POTASSIUM 3.4 mmol/L (3.5-5.1)
--- NOTE | 2025-03-19 11:42 | NUR ---
PATIENT DOES NOT TAKE ANY HOME MEDICATIONS. HAS A HISTORY OF VAPING DAILY.
--- NOTE | 2025-03-19 11:42 | NUR ---
PENDING GFR RESULTS, IV SITE, & CONSENT FOR CT EXAM.
[2025-03-19] MEDS ORDERED: IOHEXOL-350 75 ML VIAL IV ONE (11:44)
[2025-03-19] MEDS: ZOSYN 3.375GM +NS 50ML IVPB ONE (11:46)
--- NOTE | 2025-03-19 11:52 | HMCIMG ---
ULTRASOUND ABDOMEN LIMITED INDICATION: Periumbilical and right lower abdominal pain COMPARISON: None FINDINGS/IMPRESSION: Appendix was not well visualized by the security and compliance project manager. No abnormal soft tissue mass, cystic lesion, or free fluid demonstrated.
[2025-03-19 12:01] LABS: CREATININE 1.4 mg/dL (0.5-1.3)
--- NOTE | 2025-03-19 12:20 | NUR ---
OBTAINED CONSENT FOR CT.
--- NOTE | 2025-03-19 12:53 | HMCIMG ---
CT ABDOMEN WITH CONTRAST. CT PELVIS WITH CONTRAST INDICATION: Periumbilical pain and right lower abdominal tenderness. TECHNIQUE: Routine transaxial images using 5 mm slice thickness were obtained after the intravenous infusion of 75 mL of Omnipaque 350 without adverse effects. Oral contrast was not administered. Rectal contrast was not administered. Coronal and sagittal reformatted images acquired for interpretation. CT was performed with one or more of the following dose reduction techniques: Automated exposure control, adjustment of the mA and/or kV according to patient size, or use of iterative reconstruction technique. COMPARISON: None FINDINGS: ABDOMEN: Heart size is normal. Visible lung bases are clear. The liver is normal in size and smooth in contour without lesions or biliary duct dilation. The spleen is normal in size without lesions. The gallbladder appears normal. The pancreas appears normal without pancreatic duct dilation. The adrenal glands appear normal. Both kidneys appear unremarkable. Cortical nephrograms are symmetric and normal in appearance bilaterally. No evidence for intra-abdominal free air or organized fluid collection. No retrocrural, intraabdominal, or retroperitoneal lymphadenopathy identified. No aortic aneurysmal dilation or dissection identified. PELVIS: No evidence for free air or organized pelvic fluid collection. No significant pelvic adenopathy detected. Mild to moderate submucosal edema along the proximal colon and mild along the distal colon some of which may be exaggerated by incomplete distention. Terminal ileum appears normal. The appendix appears normal. The urinary bladder appears unremarkable. Visible osseous structures are intact. IMPRESSION: Suspect mild inflammatory or infectious proximal and distal colitis.
[2025-03-19] MEDS: [UNRECOGNIZED DRUG - OTHER] IV ONE (13:03)
[2025-03-19] MEDS ORDERED: acetaMINOPHEN 325 MG TAB PO PRN (13:30)
[2025-03-19 13:32] LABS: INR 1.01 (0.85-1.15); PROTHROMBIN TIME 10.7 SEC (9.6-11.6)
[2025-03-19 13:33] LABS: PARTIAL THROMBOPLASTIN TIME 23.5 SEC (26.3-35.5)
[2025-03-19 13:39] LABS: ALBUMIN 4.6 g/dL (3.5-5.0); BILIRUBIN,DIRECT 0.1 mg/dL (0.0-0.3); BILIRUBIN,TOTAL 0.7 mg/dL (0.2-1.0); MAGNESIUM 1.9 mg/dL (1.80-2.40); TOTAL PROTEIN, SERUM 7.9 g/dL (6.0-8.3)
--- NOTE | 2025-03-19 13:50 | CONS ---
GENERAL SURGERY CONSULTATION NOTE Date/Time Patient Seen: [ ] Requesting Physician: [ ] Reason for Consultation: [ ] History of Present Illness: [ ] Past Medical History: [ ] Past Surgical History: [ ] Family History: [ ] Social History: [ ] Habits: [Never] smoker. [Denies] alcohol consumption. [Denies] illicit drug use Current Medications Medications (Trade) Dose Ordered Sig/Rivera Route Start Time Stop Time Status Last Admin Dose Admin Lactated Ringer's 1,000 ml @ 75 mls/hr [id number] IV 03/19/25 15:00 04/18/25 14:59 Pantoprazole Sodium (PROTonix 40MG INJ) 40 mg Q24H IVP 03/19/25 13:30 04/18/25 13:29 Piperacillin Sod/ Tazobactam Sod (Zosyn 3.375gm+NS 50ml) 3.375 gm Q8H IVPB 03/19/25 20:00 03/29/25 19:59 Sodium Chloride (NS 50ml) 50 ml AD IV 03/19/25 18:00 03/19/25 13:16 DC Thiamine HCl (Vitamin B-1) 100 mg Q24H IVP 03/19/25 13:30 04/18/25 13:29 Review of Systems: CONST: [No fever, fatigue, or weight changes.] EYES: [No recent vision problems.] ENT: [No congestion, ear pain, or sore throat.] C/V: [No chest pain, palpitations, or edema.] RESP: [No cough, congestion, wheezing or shortness of breath.] GI: [No abdominal pain, nausea, vomiting, constipation, or diarrhea.] : [No incontinence or dysuria.] SKIN: [No rash.] NEURO: [No headache, focal numbness or weakness, dizziness, or seizures.] PSYCH: [No depression or anxiety.] HEME: [No abnormal bruising or bleeding.] LYMPH: [No swollen glands.] Physical Examination: GENERAL: [No acute distress.] HEAD: [Normal with no signs of head trauma.] EYES: [PERRLA, EOMI, conjunctiva and sclera normal.] ENT: [Hearing grossly intact, normal oropharynx.] NECK: [Supple without JVD. There is no tenderness, lymphadenopathy, or masses. No thyromegaly. Normal carotid upstrokes without bruits.] LUNGS: [Clear breath sounds bilaterally. There are right basilar rales one third of the way up the chest. No wheezes, or rhonchi.] HEART: [Normal rate and rhythm. Normal S1 and S2 without mumurs, gallop or rub.] VASC: [Peripheral pulses +2 bilaterally.] ABD: [Bowel sounds normal, soft, nontender, no masses, no organomegaly. No audible bruits.] : [Not examined] LYMPH: [No lymphadenopathy noted.] EXT: [No clubbing, cyanosis or edema.] SKIN: [No rashes or lesions noted.] NEURO: [Awake, alert, and oriented x3. No focal sensory or strength deficits noted.] Vital Signs (last 8hr) Date Time Temp Pulse Resp B/P (MAP) Pulse Ox O2 Delivery O2 Flow Rate FiO2 03/19/25 11:00 97.9 56 17 111/64 98 Room Air* 0 21 03/19/25 10:36 97.2 70 18 121/73 100 Room Air 0 Laboratory: [ ] Hematology Labs: Test 03/19/25 11:04 Range/Units White Blood Count 22.9 H 4.8-10.8 K/uL Red Blood Count 5.32 4.50-6.20 MIL/uL Hemoglobin 16.1 14.0-18.0 g/dL Hematocrit 46.6 42-54 % Mean Corpuscular Volume 87.6 79-99 fL Mean Corpuscular Hemoglobin 30.3 27.0-33.0 pg Mean Corpuscular Hemoglobin Concent 34.5 32.0-36.0 g/dL Red Cell Distribution Width 12.7 11.0-15.5 % Platelet Count 278 130-400 K/uL Mean Platelet Volume 10.4 7.5-10.5 fL Immature Granulocyte % (Auto) 1.4 H 0-1 % Neutrophils (%) (Auto) 81.8 H 40.0-77.0 % Lymphocytes (%) (Auto) 12.6 L 21.0-51.0 % Monocytes (%) (Auto) 3.8 3.0-13.0 % Eosinophils (%) (Auto) 0.0 0.0-8.0 % Basophils (%) (Auto) 0.4 0.0-5.0 % Neutrophils # (Auto) 18.7 H 1.8-7.7 K/uL Lymphocytes # (Auto) 2.9 1.0-4.8 K/uL Monocytes # (Auto) 0.9 0.1-1.0 K/uL Eosinophils # (Auto) 0.00 0.00-0.70 K/uL Basophils # (Auto) 0.09 0.00-0.20 K/uL Absolute Immature Granulocyte (auto 0.33 0-1 K/uL Nucleated Red Blood Cells 0.0 0.0-0.19 % Chemistry Labs: Test 03/19/25 11:44 03/19/25 11:04 Range/Units Lactic Acid Level 6.5 H 0.8-2.5 mmol/L Sodium Level 141 136-145 mmol/L Potassium Level 3.4 L 3.5-5.1 mmol/L Chloride Level 100 L 101-111 mmol/L Carbon Dioxide Level 16 L 21-32 mmol/L Blood Urea Nitrogen 18 7-18 mg/dL Creatinine 1.4 H 0.5-1.3 mg/dL Glomerular Filtration Rate Calc 72 >90 mL/min Random Glucose 92 70-105 mg/dL Total Calcium 9.7 8.5-10.1 mg/dL Magnesium Level 1.90 1.80-2.40 mg/dL Total Bilirubin 0.7 0.2-1.0 mg/dL Direct Bilirubin 0.1 0.0-0.3 mg/dL Aspartate Amino Transf (AST/SGOT) 18 10-37 U/L Alanine Aminotransferase (ALT/SGPT) 18 12-78 U/L Alkaline Phosphatase 72 50-136 U/L Lactate Dehydrogenase 152 81-234 U/L C-Reactive Protein, Quantitative 0.70 0.5-3.0 mg/L Total Protein 7.9 6.0-8.3 g/dL Albumin 4.6 3.5-5.0 g/dL Lipase 19 16-77 U/L Coagulation Labs: Test 03/19/25 11:04 Range/Units Prothrombin Time 10.7 9.6-11.6 SEC Prothromb Time International Ratio 1.01 0.85-1.15 Activated Partial Thromboplast Time 23.5 L 26.3-35.5 SEC Diagnostics / Radiology: [Copy/Paste Echos/Imaging Report here] Assessment: sepsis secondary to colitis no acute surgical intervention required at this time Plan: npo ivf rescusitation iv abx GI consult will follow HANS MINER MD Mar 19, 2025 13:50
--- NOTE | 2025-03-19 14:00 | NUR ---
DR. MINER CAME TO EVALUATE PATIENT.
[2025-03-19] MEDS: THIAMINE HCL 100 MG/ML 2ML VIAL IVP SCH (14:16)
[2025-03-19] MEDS: ondanSETRON 4MG INJ IVP PRN (14:16)
[2025-03-19] MEDS: morPHINE 2 MG SYG IVP PRN (14:16)
[2025-03-19] MEDS: PANTOPrazole 40 MG/VIAL IVP SCH (14:16)
--- NOTE | 2025-03-19 14:34 | HP ---
[facility] HISTORY AND PHYSICAL Date of Service: Mar 19, 2025 Time of Service: 14:28 HISTORY OF PRESENT ILLNESS: Date of service: 03/19/2025, patient was seen in ER room 19 This is a 24-year-old male with prior history of colitis requiring hospitalization in [facility] in 2022 who presented to the ER for further evaluation of lower abdominal pain [id number] intensity. Patient states that he has been having chronic abdominal pain ongoing for about one month which he rates as mild in intensity. Overnight and since this morning, the abdominal pain acutely worsened which he rated as 7-8/10, prompting him to come to the ER for further evaluation. Patient denies any vomiting or diarrhea. Denies any hematochezia, hematemesis or signs of GI bleeding. Patient reports that he was hospitalized in [facility] last year with similar complaint for about 2-3 days. He has not had GI evaluation as outpatient. Patient denies family history of inflammatory bowel disease or GI issues otherwise. On presentation to the hospital, patient was noted to be afebrile and hemodynamically stable. [place] [address], hemoglobin of 16.1, platelet count of 278,000. BMP showed sodium of 141, potassium 3.4, chloride of 100, CO2 of 16, BUN of 18, creatinine 1.4, lactic acid of 6.5 Patient underwent further evaluation with CT abdomen pelvis with IV contrast which showed findings of inflammatory colitis involving the proximal and distal colon. Patient reports having had unintentional 10-15 lb weight loss over the last several months. Patient will be admitted to cardiac telemetry floor and will receive aggressive IV fluid and IV antibiotic therapy. Consultation with both GI and General surgery will be requested. Patient will benefit from colonoscopy evaluation in 48-72 hours once lactic acid and leukocytosis improves and abdominal pain improves. Patient denies any signs of diarrhea, patient may need further evaluation for inflammatory bowel disease/ulcerative colitis, will monitor closely for signs of infectious colitis. REVIEW OF SYSTEMS CONSTITUTIONAL: Denies fevers, chills, or night sweats. No unintentional weight loss reported. NEUROLOGICAL: Denies headache, amaurosis fugax, motor weakness, sensory deficit, vertigo/spinning sensation, gait abnormalities, or tremors. ENT: No hearing loss, otalgia, otorrhea, rhinitis, rhinorrhea, hoarseness, or sore throat. CARDIOVASCULAR: Denies any exertional angina, dyspnea on exertion, orthopnea, paroxysmal nocturnal dyspnea, palpitations, life-threatening arrhythmias, claudication. PULMONARY: Denies any shortness of breath, cough, phlegm/sputum, hemoptysis, pleuritic chest pain. SLEEP: Denies morning headaches, daytime somnolence or napping. Denies difficulty falling asleep, staying asleep, waking from sleep. Denies knowledge of snoring. GASTROINTESTINAL: Nausea, [id number] abdominal pain that started today GENITOURINARY: Denies frequency, urgency, nocturia, hematuria or incontinence (Storage/Irritative symptoms.) Low urinary stream, straining to void, urinary intermittency or hesitancy, splitting of the voiding stream, terminal dribbling. ENDOCRINOLOGIC: Denies polyuria, polydipsia, polyphagia or heat/cold intolerances. HEMATOLOGIC: Denies thrombophilia/previous clots, or coagulopathy/bleeding di sorders. ONCOLOGIC: Denies personal history of malignancy. DERMATOLOGIC: Denies rashes or pruritus. PSYCHIATRIC: Denies any suicidal or homicidal ideation. Denies hallucinations. PAST MEDICAL HISTORY: History of hospitalization in [facility] in 2022 for proximal and distal colitis treated conservatively PAST SURGICAL HISTORY: Denies any history of significant surgeries PAST SOCIAL HISTORY: Patient vapes daily, denies significant alcohol consumption, denies tobacco use, denies illicit drug use FAMILY HISTORY: Denies family history of inflammatory bowel disease or GI issues otherwise Allergies: No known drug allergies Home medications: Patient denies being on maintenance home medication Coded Allergies: No Known Allergies (Unverified Allergy, Unknown, 07/22/23) PHYSICAL EXAM GENERAL APPEARANCE: The patient is awake, alert, and oriented, in no acute cardiopulmonary distress. NEUROLOGICAL: Cranial nerves II-XII grossly intact. Motor is 5/5 in bilateral upper and lower extremities proximal to distal. No sensory deficits. HEENT: Face is symmetric. Pupils are equal and reactive. Extraocular movements are intact. NECK: Supple. No JVD. No thyromegaly. No submental, submandibular, pre- /postauricular, occipital or supraclavicular lymphadenopathy. CHEST: Normal chest expansion. No Telemetry. LUNGS: Absence of any rales, rhonchi or any wheezing. CARDIOVASCULAR: Regular. S1 and S2 normal. No appreciable rubs, murmurs or gallops. ABDOMEN: Soft, mild tenderness to palpation of the lower abdomen with no rebound or guarding : Deferred. No Orta. EXTREMITIES: Non-edematous and not cyanotic. No clubbing. Good capillary refill. SKIN: No skin breakdown. Vital Sign (Last 24 Hours) 03/19/25 11:00 Temp 97.9 Pulse 56 Resp 17 B/P (MAP) 111/64 Pulse Ox 98 O2 Delivery Room Air* O2 Flow Rate 0 FiO2 21 LABS: Laboratory: Test 03/19/25 11:44 03/19/25 11:04 Range/Units Lactic Acid Level 6.5 H 0.8-2.5 mmol/L White Blood Count 22.9 H 4.8-10.8 K/uL Red Blood Count 5.32 4.50-6.20 MIL/uL Hemoglobin 16.1 14.0-18.0 g/dL Hematocrit 46.6 42-54 % Mean Corpuscular Volume 87.6 79-99 fL Mean Corpuscular Hemoglobin 30.3 27.0-33.0 pg Mean Corpuscular Hemoglobin Concent 34.5 32.0-36.0 g/dL Red Cell Distribution Width 12.7 11.0-15.5 % Platelet Count 278 130-400 K/uL Mean Platelet Volume 10.4 7.5-10.5 fL Immature Granulocyte % (Auto) 1.4 H 0-1 % Neutrophils (%) (Auto) 81.8 H 40.0-77.0 % Lymphocytes (%) (Auto) 12.6 L 21.0-51.0 % Monocytes (%) (Auto) 3.8 3.0-13.0 % Eosinophils (%) (Auto) 0.0 0.0-8.0 % Basophils (%) (Auto) 0.4 0.0-5.0 % Neutrophils # (Auto) 18.7 H 1.8-7.7 K/uL Lymphocytes # (Auto) 2.9 1.0-4.8 K/uL Monocytes # (Auto) 0.9 0.1-1.0 K/uL Eosinophils # (Auto) 0.00 0.00-0.70 K/uL Basophils # (Auto) 0.09 0.00-0.20 K/uL Absolute Immature Granulocyte (auto 0.33 0-1 K/uL Nucleated Red Blood Cells 0.0 0.0-0.19 % Erythrocyte Sedimentation Rate 1 0-15 MM/HR Prothrombin Time 10.7 9.6-11.6 SEC Prothromb Time International Ratio 1.01 0.85-1.15 Activated Partial Thromboplast Time 23.5 L 26.3-35.5 SEC Sodium Level 141 136-145 mmol/L Potassium Level 3.4 L 3.5-5.1 mmol/L Chloride Level 100 L 101-111 mmol/L Carbon Dioxide Level 16 L 21-32 mmol/L Blood Urea Nitrogen 18 7-18 mg/dL Creatinine 1.4 H 0.5-1.3 mg/dL Glomerular Filtration Rate Calc 72 >90 mL/min Random Glucose 92 70-105 mg/dL Total Calcium 9.7 8.5-10.1 mg/dL Magnesium Level 1.90 1.80-2.40 mg/dL Total Bilirubin 0.7 0.2-1.0 mg/dL Direct Bilirubin 0.1 0.0-0.3 mg/dL Aspartate Amino Transf (AST/SGOT) 18 10-37 U/L Alanine Aminotransferase (ALT/SGPT) 18 12-78 U/L Alkaline Phosphatase 72 50-136 U/L Lactate Dehydrogenase 152 81-234 U/L C-Reactive Protein, Quantitative 0.70 0.5-3.0 mg/L Total Protein 7.9 6.0-8.3 g/dL Albumin 4.6 3.5-5.0 g/dL Lipase 19 16-77 U/L Procalcitonin < 0.05 L 0.05-0.5 ng/mL Current Medications Medications (Trade) Dose Ordered Sig/Rivera Route PRN Reason Start Time Stop Time Status Last Admin Dose Admin Acetaminophen (TYLenol 325MG TAB) 650 mg Q6H PRN PO MILD PAIN (1-3) 03/19/25 13:30 04/18/25 13:29 Lactated Ringer's 1,000 ml @ 75 mls/hr [id number] IV 03/19/25 15:00 04/18/25 14:59 Morphine Sulfate (morPHINE 2MG SYG) 2 mg Q6H PRN IVP SEVERE PAIN (7-10) 03/19/25 13:30 03/26/25 13:29 03/19/25 14:16 2 MG Ondansetron HCl (zoFRAN 4MG INJ) 4 mg Q6H PRN IVP NAUSEA/VOMITING 03/19/25 13:30 04/18/25 13:29 03/19/25 14:16 4 MG Pantoprazole Sodium (PROTonix 40MG INJ) 40 mg Q24H IVP 03/19/25 13:30 04/18/25 13:29 03/19/25 14:16 40 MG Piperacillin Sod/ Tazobactam Sod (Zosyn 3.375gm+NS 50ml) 3.375 gm Q8H IVPB 03/19/25 20:00 03/29/25 19:59 Potassium Chloride 100 ml @ 50 mls/hr AD PRN IV POTASSIUM PROTOCOL 03/19/25 13:30 04/18/25 13:29 Sodium Chloride (NS 50ml) 50 ml AD IV 03/19/25 18:00 03/19/25 13:16 DC Thiamine HCl (Vitamin B-1) 100 mg Q24H IVP 03/19/25 13:30 04/18/25 13:29 03/19/25 14:16 100 MG DIAGNOSTICS / RADIOLOGY: SERVICE 1123 REASON: Periumbilical and right lower quadrant pain tenderness [id number] WBCs ORDERING PHYSICIAN: JOAQUIN CASIANO NP PROCEDURE: ABD PEL W - CT ABDOMEN/PELVIS W/CONTRAST CT ABDOMEN WITH CONTRAST. CT PELVIS WITH CONTRAST INDICATION: Periumbilical pain and right lower abdominal tenderness. TECHNIQUE: Routine transaxial images using 5 mm slice thickness were obtained after the intravenous infusion of 75 mL of Omnipaque 350 without adverse effects. Oral contrast was not administered. Rectal contrast was not administered. Coronal and sagittal reformatted images acquired for interpretation. CT was performed with one or more of the following dose reduction techniques: Automated exposure control, adjustment of the mA and/or kV according to patient size, or use of iterative reconstruction technique. COMPARISON: None FINDINGS: ABDOMEN: Heart size is normal. Visible lung bases are clear. The liver is normal in size and smooth in contour without lesions or biliary duct dilation. The spleen is normal in size without lesions. The gallbladder appears normal. The pancreas appears normal without pancreatic duct dilation. The adrenal glands appear normal. Both kidneys appear unremarkable. Cortical nephrograms are symmetric and normal in appearance bilaterally. No evidence for intra-abdominal free air or organized fluid collection. No retrocrural, intraabdominal, or retroperitoneal lymphadenopathy identified. No aortic aneurysmal dilation or dissection identified. PELVIS: No evidence for free air or organized pelvic fluid collection. No significant pelvic adenopathy detected. Mild to moderate submucosal edema along the proximal colon and mild along the distal colon some of which may be exaggerated by incomplete distention. Terminal ileum appears normal. The appendix appears normal. The urinary bladder appears unremarkable. Visible osseous structures are intact. IMPRESSION: Suspect mild inflammatory or infectious proximal and distal colitis. DICTATED BY: OLAMIDE ERAZO MD DATE: 03/19/25 125 ELECTRONICALLY SIGNED BY: OLAMIDE ERAZO MD DATE: 03/19/25 125 ASSESSMENT: Proximal and distal inflammatory colitis, POA Significant leukocytosis w/sepsis , POA Significant lactic acidosis, POA Acute kidney injury, POA Dehydration, POA Acute on chronic abdominal pain, POA History of hospitalization in [facility] for proximal and distal colitis in 2022, POA Rule out inflammatory bowel disease, POA Hypokalemia, POA PLAN: Patient will be admitted to cardiac telemetry floor Lactic acid will be trended q.4 hours until less than two Patient will receive sepsis bolus of fluid, start LR at 75 mL/hour Patient will be kept strictly NPO We will start patient on broad-spectrum IV antibiotics with Zosyn We will check ESR, CRP and procalcitonin, monitor for signs of diarrhea closely Consultation with General surgery will be requested given significant elevation of lactic acid Consultation with GI will be requested, we will likely need colonoscopy evaluation and we will need to rule out inflammatory bowel disease/ulcerative colitis , other differential remains untreated infectious colitis Maintain K greater than four and magnesium greater than two, electrolytes will be repleted per protocol All labs will be repeated in the morning Anticipate hospitalization for at least 72 hours until further etiology of colitis is elucidated Date of service: 03/19/2025 Plan of care was, Discussed with patient and family at bedside, Isiah Barry MD Advanced Care Planning: Which of the following were discussed: Hospice care: Yes __ No _X_ Therapeutic options: Yes _X_ No __ Advance directives: Yes _X_ No __ Other discussions: Discussed with who?: Patient Voluntary nature of this service was explained to the patient? Yes _x_ No __ Amount of time spent: 20 minutes ISIAH BARRY MD Mar 19, 2025 14:34
--- NOTE | 2025-03-19 14:47 | NUR ---
PLACED 20G ON LEFT WRIST.
[2025-03-19] MEDS: PoTASSium chloRIDE 20MEQ/100ML 100 ML IV PRN (14:56)
--- NOTE | 2025-03-19 15:08 | NUR ---
STARTED REPLACING POTASSIUM VIA IV, FOLLOWING POTASSIUM PROTOCOL ON PATIENTS E-MAR. POTASSIUM AT 3.4.
--- NOTE | 2025-03-19 15:08 | NUR ---
EDUCATED PATIENT AND SIGNIFICANT OTHER ON ELECTROLYTES, CURRENT NPO DIET PAIN MANAGEMENT AND PLAN OF CARE. BOTH VERBALIZED UNDERSTANDING.
[2025-03-19] MEDS: LACTATED RINGERS 1000ML 1,000 ML IV SCH (16:38)
[2025-03-19] MEDS ORDERED: 0.9%NACL 50ML IV SCH (18:00)
[2025-03-19] MEDS: ZOSYN 3.375GM +NS 50ML IVPB SCH (20:09)
[2025-03-19 21:31] LABS: CREATININE 1.2 mg/dL (0.5-1.3); POTASSIUM 3.8 mmol/L (3.5-5.1)
[2025-03-19 21:39] LABS: APPEARANCE,URINE CLEAR (CLEAR); BILIRUBIN,URINE NEGATIVE (NEGATIVE); COLOR,URINE LIGHT-YELLOW (YELLOW); GLUCOSE, URINE (UA) NEGATIVE (NEGATIVE); KETONES,URINE 150 mg/dL (NEGATIVE); LEUKOCYTE ESTERASE ,URINE NEGATIVE Leu/uL (NEGATIVE); NITRATE,URINE NEGATIVE (NEGATIVE); OCCULT BLOOD,URINE NEGATIVE (NEGATIVE); PH,URINE 5.5 (5.0-8.0); PROTEIN,URINE NEGATIVE (NEGATIVE); UROBILINOGEN,URINE 0.2 mg/dL (0.2-1.0)
[2025-03-19 21:40] LABS: ADD UA MICROSCOPIC YES
[2025-03-19 21:43] LABS: MUCUS,URINE RARE LPF (None Seen); RBC,URINE 0-1 /HPF (0-1); SQUAMOUS EPITHELIAL CELL,UR RARE /HPF (0-2); WBC,URINE 0-1 /HPF (0-1)
[2025-03-19 21:55] LABS: AMPHET/METH SCREEN,URINE NEGATIVE (NEGATIVE); BARBITURATE SCREEN, URINE NEGATIVE (NEGATIVE); BENZODIAZEPINES SCREEN,URINE NEGATIVE (NEGATIVE); CANNABINOID SCREEN,URINE POSITIVE (NEGATIVE); COCAINE SCREEN,URINE NEGATIVE (NEGATIVE); OPIATE SCREEN,URINE POSITIVE (NEGATIVE); PHENCYCLIDINE SCREEN,URINE NEGATIVE (NEGATIVE)
[2025-03-20 07:28] LABS: BASOPHILS # (AUTO) 0.08 K/uL (0.00-0.20); BASOPHILS % (AUTO) 0.7 % (0.0-5.0); EOSINOPHILS # (AUTO) 0.11 K/uL (0.00-0.70); EOSINOPHILS % (AUTO) 0.9 % (0.0-8.0); HEMATOCRIT 37.8 % (42-54); IMMATURE GRANULOCYTE ABSOLUTE 0.05 K/uL (0-1); LYMPHOCYTES # (AUTO) 3.1 K/uL (1.0-4.8); LYMPHOCYTES % (AUTO) 25.4 % (21.0-51.0); MEAN CORPUSCULAR HEMOGLOBIN 30.2 pg (27.0-33.0); MEAN CORPUSCULAR HGB CONC 33.9 g/dL (32.0-36.0); MEAN CORPUSCULAR VOLUME 89.2 fL (79-99); MONOCYTES % (AUTO) 8.1 % (3.0-13.0); NEUTROPHILS # (AUTO) 7.7 K/uL (1.8-7.7); NEUTROPHILS % (AUTO) 64.5 % (40.0-77.0); PLATELET COUNT (AUTO) 189 K/uL (130-400); RED BLOOD CELL COUNT(AUTO) 4.24 MIL/uL (4.50-6.20)
[2025-03-20 07:33] LABS: ALBUMIN 3.7 g/dL (3.5-5.0); BILIRUBIN,TOTAL 1.3 mg/dL (0.2-1.0); MAGNESIUM 1.9 mg/dL (1.80-2.40); POTASSIUM 3.8 mmol/L (3.5-5.1); TOTAL PROTEIN, SERUM 6.7 g/dL (6.0-8.3)
[2025-03-20 08:00] VITALS: BP 106/67; PULSE 59; RESP 17; TEMP 98.6
--- NOTE | 2025-03-20 09:52 | CONS ---
GASTROENTEROLOGY CONSULTATION NOTE Date of Consultation: Mar 20, 2025 Time of Consultation: 09:52 History of Present Illness: This is a 24 yo male with past medical history of colitis requiring hospitalization in 2022. He presented due to lower abdominal pain. Patient has been having abdominal pain ongoing for one month. Denies overt GI bleeding. We were consulted due to colitis and lactic acidosis. WBC was 22.9 now 12, hgb 12.8, plts 189. CT abdomen and pelvis revealing mild inflammatory or infectious proximal and distal colitis. Review of Systems: CONSTITUTIONAL: No malaise or change in sensation of wellbeing. ENMT: No rhinorrhea, otorrhea, sinus pain, ear ache. CARDIOVASCULAR: No angina, palpitations, orthopnea or paroxysmal dyspnea. RESPIRATORY: No SOB. GASTROINTESTINAL: No abdominal pain, nausea, vomiting, diarrhea, hematemesis, melena or change in the patient's habitual bowel movements consistency/number. GENITOURINARY: No dysuria, hematuria or change in bladder continence. MUSCULOSKELETAL: No new muscle pain or decrease in muscular strength. No new joint swelling, redness or tenderness. SKIN: No new rash. Past Medical History: [ ] Past Surgical History: [ ] Past Social History: [ ] Family History: [ ] Coded Allergies: No Known Allergies (Unverified Allergy, Unknown, 07/22/23) Physical Exam: GEN: Awake, alert, oriented in person, time and place, and in no acute distress. HEENT: No sinus tenderness. Tympanic membranes were not examined. No rhinorrhea. Oral pharyngeal mucosa is pink, moist and within normal limits. Neck is supple with no cervical lymphadenopathy, thyromegaly or JVD. CHEST: Inspection, palpation and percussion of the chest were unremarkable. Lung auscultation revealed normal breath sounds bilaterally. CARDIAC: PMI is within normal limits. Heart sounds are regular. Normal S1, S2. No gallop or murmur. ABD: Soft, non-tender and not distended. No peritoneal signs on palpation. No organomegaly. Normal bowel sounds. EXT: No cyanosis or clubbing. No edema. SKIN: Intact. No rashes. JOINTS: No evidence of synovitis or acute arthritis. NEURO: Alert and oriented to name, place and person. Cranial nerve examination is unremarkable. No focal motor deficits. Normal speech. Gait is normal. Strength is normal. Vital Sign (Last 24 Hours) 03/20/25 05:38 Temp 97.9 Pulse 75 Resp 14 B/P (MAP) 108/60 Pulse Ox 100 O2 Delivery Room Air* O2 Flow Rate 0 FiO2 21 Laboratory: [ ] Laboratory: Test 03/20/25 08:18 03/20/25 07:08 03/19/25 21:20 03/19/25 11:04 Range/Units Whole Blood Ketones Quantitative 2.9 H 0.0-0.6 mmol/L Lactic Acid Level 1.3 0.8-2.5 mmol/L Total Creatine Kinase 120 21-232 U/L White Blood Count 12.0 #H 4.8-10.8 K/uL Red Blood Count 4.24 #L 4.50-6.20 MIL/uL Hemoglobin 12.8 #L 14.0-18.0 g/dL Hematocrit 37.8 L 42-54 % Mean Corpuscular Volume 89.2 79-99 fL Mean Corpuscular Hemoglobin 30.2 27.0-33.0 pg Mean Corpuscular Hemoglobin Concent 33.9 32.0-36.0 g/dL Red Cell Distribution Width 13.0 11.0-15.5 % Platelet Count 189 # 130-400 K/uL Mean Platelet Volume 10.4 7.5-10.5 fL Immature Granulocyte % (Auto) 0.4 0-1 % Neutrophils (%) (Auto) 64.5 40.0-77.0 % Lymphocytes (%) (Auto) 25.4 21.0-51.0 % Monocytes (%) (Auto) 8.1 3.0-13.0 % Eosinophils (%) (Auto) 0.9 0.0-8.0 % Basophils (%) (Auto) 0.7 0.0-5.0 % Neutrophils # (Auto) 7.7 1.8-7.7 K/uL Lymphocytes # (Auto) 3.1 1.0-4.8 K/uL Monocytes # (Auto) 1.0 0.1-1.0 K/uL Eosinophils # (Auto) 0.11 0.00-0.70 K/uL Basophils # (Auto) 0.08 0.00-0.20 K/uL Absolute Immature Granulocyte (auto 0.05 0-1 K/uL Nucleated Red Blood Cells 0.0 0.0-0.19 % Sodium Level 135 L 136-145 mmol/L Potassium Level 3.8 3.5-5.1 mmol/L Chloride Level 104 101-111 mmol/L Carbon Dioxide Level 22 21-32 mmol/L Blood Urea Nitrogen 13 7-18 mg/dL Creatinine 1.0 0.5-1.3 mg/dL Glomerular Filtration Rate Calc 108 >90 mL/min Random Glucose 74 70-105 mg/dL Total Calcium 8.7 8.5-10.1 mg/dL Magnesium Level 1.90 1.80-2.40 mg/dL Total Bilirubin 1.3 #H 0.2-1.0 mg/dL Aspartate Amino Transf (AST/SGOT) 17 10-37 U/L Alanine Aminotransferase (ALT/SGPT) 17 12-78 U/L Alkaline Phosphatase 61 50-136 U/L Total Protein 6.7 6.0-8.3 g/dL Albumin 3.7 3.5-5.0 g/dL Urine Color LIGHT-YELLOW YELLOW Urine Appearance CLEAR CLEAR Urine pH 5.5 5.0-8.0 Urine Specific [place] 1.045 H 1.001-1.031 Urine Protein NEGATIVE NEGATIVE mg/dL Urine Glucose (UA) NEGATIVE NEGATIVE mg/dL Urine Ketones 150 H NEGATIVE mg/dL Urine Occult Blood NEGATIVE NEGATIVE Urine Nitrate NEGATIVE NEGATIVE Urine Bilirubin NEGATIVE NEGATIVE mg/dL Urine Urobilinogen 0.2 0.2-1.0 mg/dL Urine Leukocyte Esterase NEGATIVE NEGATIVE Sumeet/uL Urine RBC 0-1 0-1 /HPF Urine WBC 0-1 0-1 /HPF Urine Squamous Epithelial Cells RARE 0-2 /HPF Urine Bacteria None None Seen /HPF Urine Opiates Screen POSITIVE H NEGATIVE Urine Barbiturates Screen NEGATIVE NEGATIVE Urine Phencyclidine Screen NEGATIVE NEGATIVE Urine Amphetamines Screen NEGATIVE NEGATIVE Urine Benzodiazepines Screen NEGATIVE NEGATIVE Urine Cocaine Screen NEGATIVE NEGATIVE Urine Marijuana (THC) Screen POSITIVE H NEGATIVE Erythrocyte Sedimentation Rate 1 0-15 MM/HR Prothrombin Time 10.7 9.6-11.6 SEC Prothromb Time International Ratio 1.01 0.85-1.15 Activated Partial Thromboplast Time 23.5 L 26.3-35.5 SEC Direct Bilirubin 0.1 0.0-0.3 mg/dL Lactate Dehydrogenase 152 81-234 U/L C-Reactive Protein, Quantitative 0.70 0.5-3.0 mg/L Lipase 19 16-77 U/L Procalcitonin < 0.05 L 0.05-0.5 ng/mL Current Medications Medications (Trade) Dose Ordered Sig/Rivera Route PRN Reason Start Time Stop Time Status Last Admin Dose Admin Acetaminophen (TYLenol 325MG TAB) 650 mg Q6H PRN PO MILD PAIN (1-3) 03/19/25 13:30 04/18/25 13:29 Lactated Ringer's 1,000 ml @ 75 mls/hr [id number] IV 03/19/25 15:00 04/18/25 14:59 03/19/25 16:38 75 MLS/HR Morphine Sulfate (morPHINE 2MG SYG) 2 mg Q6H PRN IVP SEVERE PAIN (7-10) 03/19/25 13:30 03/26/25 13:29 03/19/25 20:10 2 MG Ondansetron HCl (zoFRAN 4MG INJ) 4 mg Q6H PRN IVP NAUSEA/VOMITING 03/19/25 13:30 04/18/25 13:29 03/19/25 14:16 4 MG Pantoprazole Sodium (PROTonix 40MG INJ) 40 mg Q24H IVP 03/19/25 13:30 04/18/25 13:29 03/19/25 14:16 40 MG Piperacillin Sod/ Tazobactam Sod (Zosyn 3.375gm+NS 50ml) 3.375 gm Q8H IVPB 03/19/25 20:00 03/29/25 19:59 03/20/25 03:48 3.375 GM Potassium Chloride 100 ml @ 50 mls/hr AD PRN IV POTASSIUM PROTOCOL 03/19/25 13:30 04/18/25 13:29 03/19/25 14:56 50 MLS/HR Sodium Chloride (NS 50ml) 50 ml AD IV 03/19/25 18:00 03/19/25 13:16 DC Thiamine HCl (Vitamin B-1) 100 mg Q24H IVP 03/19/25 13:30 04/18/25 13:29 03/19/25 14:16 100 MG Diagnostics / Radiology: [COPY/PASTE HERE IF NO REPORTS PLEASE DELETE SECTION] Assessment: Abnormal imaging revealing colitis Abdominal pain Plan: Colonoscopy in [facility] Mar 20, 2025 09:52
[2025-03-20 12:00] VITALS: BP 114/68; PULSE 87; RESP 17
--- NOTE | 2025-03-20 12:19 | PN ---
[facility] PROGRESS NOTE Date of Service: Mar 20, 2025 Time of Service: 12:03 SUBJECTIVE: 24-year-old male with prior history of colitis [place] [facility] [place] to the ER for further evaluation of lower abdominal pain mod [id number] intensity. Patient states that he has been having chronic abdominal pain and nausea ongoing for about one month which he rates as mild in intensity. Overnight and since this morning, the abdominal pain acutely worsened which he rated as 7-8/10,and he vomited couple of times prompting him to come to the ER for further evaluation. He admits unintentional weight loss of 15 to 20 lbs since November 2024, cocaine snorting in the past and constipation ( bowel movement twice a week ). He denied fever, SOB, cough , palpitations, hematochezia, hematemesis or signs of GI bleeding. Patient reports that he was hospitalized in [facility] last year with similar complaint for about 2-3 days. He has not had GI evaluation as outpatient. Patient denies family history of inflammatory bowel disease or GI issues otherwise. On presentation to the hospital, patient was noted to be afebrile and hemodynamically stable. [place] [address], hemoglobin of 16.1, platelet count of 278,000. BMP showed sodium of 141, potassium 3.4, chloride of 100, CO2 of 16, BUN of 18, creatinine 1.4, lactic acid of 6.5 Patient underwent further evaluation with CT abdomen pelvis with IV contrast which showed findings of inflammatory colitis involving the proximal and distal colon.Patient was admitted for further evaluation and treatment . 25: Patient is seen resting comfortably in the bed. He complaints of mild abdominal pain 2/10 intensity .His labs have considerably improved. Lactic acid down trended to 1.5, High anion hap decreased from 25 to 13, improving creatinine. He is being treated wit h IV antibiotics and IV fluids .Surgery recommends no surgical intervention indicated at this time .Pending GI recommendations . REVIEW OF SYSTEMS CONSTITUTIONAL: Denies fevers, chills, or night sweats. No unintentional weight loss reported. NEUROLOGICAL: Denies headache, amaurosis fugax, motor weakness, sensory deficit, vertigo/spinning sensation, gait abnormalities, or tremors. ENT: No hearing loss, otalgia, otorrhea, rhinitis, rhinorrhea, hoarseness, or sore throat. CARDIOVASCULAR: Denies any exertional angina, dyspnea on exertion, orthopnea, paroxysmal nocturnal dyspnea, palpitations, life-threatening arrhythmias, claudication. PULMONARY: Denies any shortness of breath, cough, phlegm/sputum, hemoptysis, pleuritic chest pain. SLEEP: Denies morning headaches, daytime somnolence or napping. Denies difficulty falling asleep, staying asleep, waking from sleep. Denies knowledge of snoring. GASTROINTESTINAL: Nausea, [id number] abdominal pain that started today GENITOURINARY: Denies frequency, urgency, nocturia, hematuria or incontinence (Storage/Irritative symptoms.) Low urinary stream, straining to void, urinary intermittency or hesitancy, splitting of the voiding stream, terminal dribbling. ENDOCRINOLOGIC: Denies polyuria, polydipsia, polyphagia or heat/cold intolerances. HEMATOLOGIC: Denies thrombophilia/previous clots, or coagulopathy/bleeding disorders. ONCOLOGIC: Denies personal history of malignancy. DERMATOLOGIC: Denies rashes or pruritus. PSYCHIATRIC: Denies any suicidal or homicidal ideation. Denies hallucinations. PHYSICAL EXAM GENERAL APPEARANCE: The patient is awake, alert, and oriented, in no acute cardiopulmonary distress. NEUROLOGICAL: Cranial nerves II-XII grossly intact. Motor is 5/5 in bilateral upper and lower extremities proximal to distal. No sensory deficits. HEENT: Face is symmetric. Pupils are equal and reactive. Extraocular movements are intact. NECK: Supple. No JVD. No thyromegaly. No submental, submandibular, pre- /postauricular, occipital or supraclavicular lymphadenopathy. CHEST: Normal chest expansion. No Telemetry. LUNGS: Absence of any rales, rhonchi or any wheezing. CARDIOVASCULAR: Regular. S1 and S2 normal. No appreciable rubs, murmurs or gallops. ABDOMEN: Soft, mild tenderness to palpation of the lower abdomen with no rebound or guarding : Deferred. No Orta. EXTREMITIES: Non-edematous and not cyanotic. No clubbing. Good capillary refill. SKIN: No skin breakdown. Vital Signs (last 8hr) Date Time Temp Pulse Resp B/P (MAP) Pulse Ox O2 Delivery O2 Flow Rate FiO2 03/20/25 05:38 97.9 75 14 108/60 100 Room Air* 0 21 LABS: Laboratory: Test 03/20/25 08:18 03/20/25 07:08 03/19/25 21:20 03/19/25 11:04 Range/Units Whole Blood Ketones Quantitative 2.9 H 0.0-0.6 mmol/L Lactic Acid Level 1.3 0.8-2.5 mmol/L Total Creatine Kinase 120 21-232 U/L White Blood Count 12.0 #H 4.8-10.8 K/uL Red Blood Count 4.24 #L 4.50-6.20 MIL/uL Hemoglobin 12.8 #L 14.0-18.0 g/dL Hematocrit 37.8 L 42-54 % Mean Corpuscular Volume 89.2 79-99 fL Mean Corpuscular Hemoglobin 30.2 27.0-33.0 pg Mean Corpuscular Hemoglobin Concent 33.9 32.0-36.0 g/dL Red Cell Distribution Width 13.0 11.0-15.5 % Platelet Count 189 # 130-400 K/uL Mean Platelet Volume 10.4 7.5-10.5 fL Immature Granulocyte % (Auto) 0.4 0-1 % Neutrophils (%) (Auto) 64.5 40.0-77.0 % Lymphocytes (%) (Auto) 25.4 21.0-51.0 % Monocytes (%) (Auto) 8.1 3.0-13.0 % Eosinophils (%) (Auto) 0.9 0.0-8.0 % Basophils (%) (Auto) 0.7 0.0-5.0 % Neutrophils # (Auto) 7.7 1.8-7.7 K/uL Lymphocytes # (Auto) 3.1 1.0-4.8 K/uL Monocytes # (Auto) 1.0 0.1-1.0 K/uL Eosinophils # (Auto) 0.11 0.00-0.70 K/uL Basophils # (Auto) 0.08 0.00-0.20 K/uL Absolute Immature Granulocyte (auto 0.05 0-1 K/uL Nucleated Red Blood Cells 0.0 0.0-0.19 % Sodium Level 135 L 136-145 mmol/L Potassium Level 3.8 3.5-5.1 mmol/L Chloride Level 104 101-111 mmol/L Carbon Dioxide Level 22 21-32 mmol/L Blood Urea Nitrogen 13 7-18 mg/dL Creatinine 1.0 0.5-1.3 mg/dL Glomerular Filtration Rate Calc 108 >90 mL/min Random Glucose 74 70-105 mg/dL Total Calcium 8.7 8.5-10.1 mg/dL Magnesium Level 1.90 1.80-2.40 mg/dL Total Bilirubin 1.3 #H 0.2-1.0 mg/dL Aspartate Amino Transf (AST/SGOT) 17 10-37 U/L Alanine Aminotransferase (ALT/SGPT) 17 12-78 U/L Alkaline Phosphatase 61 50-136 U/L Total Protein 6.7 6.0-8.3 g/dL Albumin 3.7 3.5-5.0 g/dL Urine Color LIGHT-YELLOW YELLOW Urine Appearance CLEAR CLEAR Urine pH 5.5 5.0-8.0 Urine Specific [place] 1.045 H 1.001-1.031 Urine Protein NEGATIVE NEGATIVE mg/dL Urine Glucose (UA) NEGATIVE NEGATIVE mg/dL Urine Ketones 150 H NEGATIVE mg/dL Urine Occult Blood NEGATIVE NEGATIVE Urine Nitrate NEGATIVE NEGATIVE Urine Bilirubin NEGATIVE NEGATIVE mg/dL Urine Urobilinogen 0.2 0.2-1.0 mg/dL Urine Leukocyte Esterase NEGATIVE NEGATIVE Sumeet/uL Urine RBC 0-1 0-1 /HPF Urine WBC 0-1 0-1 /HPF Urine Squamous Epithelial Cells RARE 0-2 /HPF Urine Bacteria None None Seen /HPF Urine Opiates Screen POSITIVE H NEGATIVE Urine Barbiturates Screen NEGATIVE NEGATIVE Urine Phencyclidine Screen NEGATIVE NEGATIVE Urine Amphetamines Screen NEGATIVE NEGATIVE Urine Benzodiazepines Screen NEGATIVE NEGATIVE Urine Cocaine Screen NEGATIVE NEGATIVE Urine Marijuana (THC) Screen POSITIVE H NEGATIVE Erythrocyte Sedimentation Rate 1 0-15 MM/HR Prothrombin Time 10.7 9.6-11.6 SEC Prothromb Time International Ratio 1.01 0.85-1.15 Activated Partial Thromboplast Time 23.5 L 26.3-35.5 SEC Direct Bilirubin 0.1 0.0-0.3 mg/dL Lactate Dehydrogenase 152 81-234 U/L C-Reactive Protein, Quantitative 0.70 0.5-3.0 mg/L Lipase 19 16-77 U/L Procalcitonin < 0.05 L 0.05-0.5 ng/mL Current Medications Medications (Trade) Dose Ordered Sig/Rivera Route PRN Reason Start Time Stop Time Status Last Admin Dose Admin Acetaminophen (TYLenol 325MG TAB) 650 mg Q6H PRN PO MILD PAIN (1-3) 03/19/25 13:30 04/18/25 13:29 Lactated Ringer's 1,000 ml @ 75 mls/hr [id number] IV 03/19/25 15:00 04/18/25 14:59 03/19/25 16:38 75 MLS/HR Morphine Sulfate (morPHINE 2MG SYG) 2 mg Q6H PRN IVP SEVERE PAIN (7-10) 03/19/25 13:30 03/26/25 13:29 03/19/25 20:10 2 MG Ondansetron HCl (zoFRAN 4MG INJ) 4 mg Q6H PRN IVP NAUSEA/VOMITING 03/19/25 13:30 04/18/25 13:29 03/19/25 14:16 4 MG Pantoprazole Sodium (PROTonix 40MG INJ) 40 mg Q24H IVP 03/19/25 13:30 04/18/25 13:29 03/19/25 14:16 40 MG Piperacillin Sod/ Tazobactam Sod (Zosyn 3.375gm+NS 50ml) 3.375 gm Q8H IVPB 03/19/25 20:00 03/29/25 19:59 03/20/25 03:48 3.375 GM Potassium Chloride 100 ml @ 50 mls/hr AD PRN IV POTASSIUM PROTOCOL 03/19/25 13:30 04/18/25 13:29 03/19/25 14:56 50 MLS/HR Sodium Chloride (NS 50ml) 50 ml AD IV 03/19/25 18:00 03/19/25 13:16 DC Thiamine HCl (Vitamin B-1) 100 mg Q24H IVP 03/19/25 13:30 04/18/25 13:29 03/19/25 14:16 100 MG DIAGNOSTICS / RADIOLOGY: [ ] ASSESSMENT: Proximal and distal inflammatory colitis, POA rule out infectious vs Inflammator y bowel disease Significant leukocytosis w/sepsis , POA Lactic acidosis, POA Acute kidney injury, POA Dehydration, POA Acute on chronic abdominal pain, POA [place] [facility] [place], POA Rule out inflammatory bowel disease, POA Hypokalemia, POA PLAN: Proximal and distal inflammatory colitis, POA Significant leukocytosis w/sepsis , POA to rule out infectious vs Inflammatory bowel disease Pending GI recommendations Leukocytosis resolving Starvation ketoacidosis, POA Lactic acid levels downtrending High anion gap MA- resolved(20-->13-->9) positive ketone body Will treat with D5 NS Acute kidney injury, POA Dehydration, POA improving renal function DVT prophylaxis with SCDs G prophylaxis with Protonix ATTESTATION BY PHYSICIAN I have seen and examined the patient. I reviewed the documentation, medical decision making, and treatment plan as noted by the resident provider above. I agree with the findings and plan of care. BRIAN FLEMING MD, MD Mar 20, 2025 12:19
--- NOTE | 2025-03-20 12:57 | HMCIMG ---
CHEST 1VW HISTORY: Baseline COMPARISON: None FINDINGS: A frontal projection of the chest was obtained. No acute pulmonary infiltrates is seen. The heart is borderline enlarged. Prominent interstitial markings are seen. Mild COPD changes are seen. No evidence of aortic calcification is seen. IMPRESSION: 1. No acute pulmonary infiltrate is seen.
[2025-03-20] MEDS ORDERED: metRONIDazole 500MG/100ML BAG IV SCH (15:30)
--- NOTE | 2025-03-20 17:10 | PN ---
This is a 24-year-old male with concerns of colitis with lactic acidosis Interval history This 24-year-old male seen in his room resting Patient with no abdominal pain reported today Patient evaluated by GI planning colonoscopy tomorrow Patient is NPO WBCs improved down to 12 lactic acid down to 1.3 From surgical standpoint we will defer to GI We will await colonoscopy findings No immediate surgical intervention planned at this time Dr. Og to be updated on patient's status and surgical team to follow patient closely Vitals/Labs Vital Signs Date Time Temp Pulse Resp B/P (MAP) Pulse Ox O2 Delivery O2 Flow Rate FiO2 03/20/25 13:54 97.9 66 17 110/73 100 Room Air* 0 21 Laboratory Tests 03/19/25 21:17 03/20/25 07:08 Medications Current Medications Sodium Chloride 1,000 ml @ 0 mls/hr ONCE ONCE IV Last administered on 03/19/25at 11:12; Start 03/19/25 at 11:00; Stop 03/19/25 at 11:01; Status DC Ketorolac Tromethamine 30 mg ONCE ONCE IVP Last administered on 03/19/25at 11:12; Start 03/19/25 at 11:00; Stop 03/19/25 at 11:01; Status DC Piperacillin Sod/ Tazobactam Sod 3.375 gm ONCE ONCE IVPB Last administered on 03/19/25at 11:46; Start 03/19/25 at 11:30; Stop 03/19/25 at 11:31; Status DC Iohexol 75 ml STK-MED ONCE IV; Start 03/19/25 at 11:44; Stop 03/19/25 at 11:44; Status DC Sodium Chloride 1,584 ml @ 528 mls/hr ONCE ONCE IV Last administered on 03/19/25at 13:03; Start 03/19/25 at 12:30; Stop 03/19/25 at 15:29; Status DC Lactated Ringer's 1,000 ml @ 75 mls/hr [id number] IV Last administered on 03/19/25at 16:38; Start 03/19/25 at 15:00; Stop 03/20/25 at 14:15; Status DC Pantoprazole Sodium 40 mg Q24H IVP Last administered on 03/20/25at 12:47; Start 03/19/25 at 13:30; Stop 04/18/25 at 13:29 Piperacillin Sod/ Tazobactam Sod 3.375 gm Q8H IVPB Last administered on 03/20/25at 12:48; Start 03/19/25 at 20:00; Stop 03/20/25 at 15:17; Status DC Sodium Chloride 50 ml AD IV; Start 03/19/25 at 18:00; Stop 03/19/25 at 13:16; Status DC Acetaminophen 650 mg Q6H PRN PO; Start 03/19/25 at 13:30; Stop 04/18/25 at 13:29 Ondansetron HCl 4 mg Q6H PRN IVP Last administered on 03/19/25at 14:16; Start 03/19/25 at 13:30; Stop 04/18/25 at 13:29 Morphine Sulfate 2 mg Q6H PRN IVP Last administered on 03/19/25at 20:10; Start 03/19/25 at 13:30; Stop 03/26/25 at 13:29 Thiamine HCl 100 mg Q24H IVP Last administered on 03/20/25at 12:48; Start 03/19/25 at 13:30; Stop 04/18/25 at 13:29 Potassium Chloride 100 ml @ 50 mls/hr AD PRN IV Last administered on 03/19/25at 14:56; Start 03/19/25 at 13:30; Stop 04/18/25 at 13:29 Dextrose/Sodium Chloride 1,000 ml @ 75 mls/hr [id number] IV; Start 03/20/25 at 14:30; Stop 04/19/25 at 14:29 Ceftriaxone Sodium 1 gm Q24H IVPB; Start 03/20/25 at 15:30; Stop 03/30/25 at 15:29 Metronidazole/ Sodium Chloride 500 mg Q8H IV; Start 03/20/25 at 15:30; Stop 03/30/25 at 15:29 DIAMOND VILLAFANA Jr. Mar 20, 2025 17:10
[2025-03-20] MEDS: cefTRIAXone 1G VIAL IVPB SCH (17:41)
[2025-03-20] MEDS: metRONIDazole 500MG/100ML BAG IV SCH (17:55)
--- NOTE | 2025-03-20 18:00 | NUR ---
TRANSFERRED: REPORT CALLED TO PLACIDO BENZ. PT AAOX4, DENIES ANY PAIN. IV ANTIBIOTICS INFUSING. PT BELONGING SENT WITH PT.
[2025-03-20 18:03] VITALS: O2SAT 99
[2025-03-20 18:21] VITALS: BP 128/75; PULSE 71; RESP 18; TEMP 98.1
--- NOTE | 2025-03-20 18:32 | NUR ---
Patient is received form ER The patient is alert and in no distress. He is saturating at 99% on room air. He currently denies pain. IV antibiotics are infusing by PIV. The patient has been shown how to use the call webber and is encouraged to call for any of his needs. The bed is in a low position.
[2025-03-20 19:00] VITALS: BP 120/65; PULSE 66; RESP 20; TEMP 98.1
[2025-03-20 19:05] VITALS: O2SAT 100
[2025-03-20] MEDS: DEXTROSE 5 % AND 0.9 % NACL 1,000 ML IV SCH (20:06)
[2025-03-20] MEDS: PEG 3350/NA SULF,BICARB,CL/KCL 4000 ML SOLN PO ONE (20:14)
[2025-03-21 00:33] VITALS: BP 124/83; PULSE 65; RESP 20; TEMP 97.7
[2025-03-21 04:00] VITALS: BP 118/60; PULSE 66; RESP 20; TEMP 97.9
[2025-03-21 04:58] LABS: BASOPHILS # (AUTO) 0.04 K/uL (0.00-0.20); BASOPHILS % (AUTO) 0.4 % (0.0-5.0); EOSINOPHILS # (AUTO) 0.11 K/uL (0.00-0.70); EOSINOPHILS % (AUTO) 1.1 % (0.0-8.0); HEMATOCRIT 38.2 % (42-54); IMMATURE GRANULOCYTE ABSOLUTE 0.03 K/uL (0-1); LYMPHOCYTES # (AUTO) 2.7 K/uL (1.0-4.8); LYMPHOCYTES % (AUTO) 27.9 % (21.0-51.0); MEAN CORPUSCULAR HEMOGLOBIN 29.9 pg (27.0-33.0); MEAN CORPUSCULAR HGB CONC 34.6 g/dL (32.0-36.0); MEAN CORPUSCULAR VOLUME 86.4 fL (79-99); MONOCYTES # (AUTO) 0.9 K/uL (0.1-1.0); MONOCYTES % (AUTO) 9.4 % (3.0-13.0); NEUTROPHILS # (AUTO) 5.9 K/uL (1.8-7.7); NEUTROPHILS % (AUTO) 60.9 % (40.0-77.0); PLATELET COUNT (AUTO) 194 K/uL (130-400); RED BLOOD CELL COUNT(AUTO) 4.42 MIL/uL (4.50-6.20); RED CELL DISTRIBUTION WIDTH 12.2 % (11.0-15.5); WHITE BLOOD COUNT (AUTO) 9.6 K/uL (4.8-10.8)
[2025-03-21 05:14] LABS: ALBUMIN 3.8 g/dL (3.5-5.0); BILIRUBIN,TOTAL 0.8 mg/dL (0.2-1.0); POTASSIUM 3.6 mmol/L (3.5-5.1); TOTAL PROTEIN, SERUM 6.8 g/dL (6.0-8.3)
--- NOTE | 2025-03-21 06:32 | PN ---
[facility] PROGRESS NOTE Date of Service: Mar 21, 2025 Time of Service: 06:31 SUBJECTIVE: 24-year-old male with prior history of colitis requiring hospitalization in [facility] in 2022 presented to the ER for further evaluation of lower abdominal pain mod [id number] intensity. Patient states that he has been having chronic abdominal pain and nausea ongoing for about one month which he rates as mild in intensity. Overnight and since this morning, the abdominal pain acutely worsened which he rated as 7-8/10,and he vomited couple of times prompting him to come to the ER for further evaluation. He admits unintentional weight loss of 15 to 20 lbs since November 2024, cocaine snorting in the past and constipation ( bowel movement twice a week ). He denied fever, SOB, cough , palpitations, hematochezia, hematemesis or signs of GI bleeding. Patient reports that he was hospitalized in [facility] last year with similar complaint for about 2-3 days. He has not had GI evaluation as outpatient. Patient denies family history of inflammatory bowel disease or GI issues otherwise. On presentation to the hospital, patient was noted to be afebrile and hemodynamically stable. [place] [address], hemoglobin of 16.1, platelet count of 278,000. BMP showed sodium of 141, potassium 3.4, chloride of 100, CO2 of 16, BUN of 18, creatinine 1.4, lactic acid of 6.5 Patient underwent further evaluation with CT abdomen pelvis with IV contrast which showed findings of inflammatory colitis involving the proximal and distal colon.Patient was admitted for further evaluation and treatment . 03.20.25: Patient is seen resting comfortably in the bed. He complaints of mild abdominal pain 2/10 intensity .His labs have considerably improved. Lactic acid down trended to 1.5, High anion hap decreased from 25 to 13, improving creatinine. He is being treated wit h IV antibiotics and IV fluids .Surgery recommends no surgical intervention indicated at this time .Pending GI recommendations . 03.21.25: Patient is seen resting in his bed. His abdominal pain has resolved . Labs are stable . Planning for colonoscopy today am. Addendum: Colonoscopy was cancelled because the prep was incomplete . Patient couldn't drink the full amount of PEG. Patient informed that he will Leave against Medical advice . REVIEW OF SYSTEMS CONSTITUTIONAL: Denies fevers, chills, or night sweats. No unintentional weight loss reported. NEUROLOGICAL: Denies headache, amaurosis fugax, motor weakness, sensory deficit, vertigo/spinning sensation, gait abnormalities, or tremors. ENT: No hearing loss, otalgia, otorrhea, rhinitis, rhinorrhea, hoarseness, or sore throat. CARDIOVASCULAR: Denies any exertional angina, dyspnea on exertion, orthopnea, paroxysmal nocturnal dyspnea, palpitations, life-threatening arrhythmias, claudication. PULMONARY: Denies any shortness of breath, cough, phlegm/sputum, hemoptysis, pleuritic chest pain. SLEEP: Denies morning headaches, daytime somnolence or napping. Denies difficulty falling asleep, staying asleep, waking from sleep. Denies knowledge of snoring. GASTROINTESTINAL: Nausea, [id number] abdominal pain that started today GENITOURINARY: Denies frequency, urgency, nocturia, hematuria or incontinence (Storage/Irritative symptoms.) Low urinary stream, straining to void, urinary intermittency or hesitancy, splitting of the voiding stream, terminal dribbling. ENDOCRINOLOGIC: Denies polyuria, polydipsia, polyphagia or heat/cold intolerances. HEMATOLOGIC: Denies thrombophilia/previous clots, or coagulopathy/bleeding disorders. ONCOLOGIC: Denies personal history of malignancy. DERMATOLOGIC: Denies rashes or pruritus. PSYCHIATRIC: Denies any suicidal or homicidal ideation. Denies hallucinations. PHYSICAL EXAM GENERAL APPEARANCE: The patient is awake, alert, and oriented, in no acute cardiopulmonary distress. NEUROLOGICAL: Cranial nerves II-XII grossly intact. Motor is 5/5 in bilateral upper and lower extremities proximal to distal. No sensory deficits. HEENT: Face is symmetric. Pupils are equal and reactive. Extraocular movements are intact. NECK: Supple. No JVD. No thyromegaly. No submental, submandibular, pre-/postauricular, occipital or supraclavicular lymphadenopathy. CHEST: Normal chest expansion. No Telemetry. LUNGS: Absence of any rales, rhonchi or any wheezing. CARDIOVASCULAR: Regular. S1 and S2 normal. No appreciable rubs, murmurs or gallops. ABDOMEN: Soft, mild tenderness to palpation of the lower abdomen with no rebound or guarding : Deferred. No Orta. EXTREMITIES: Non-edematous and not cyanotic. No clubbing. Good capillary refill. SKIN: No skin breakdown. Vital Signs (last 8hr) Date Time Temp Pulse Resp B/P (MAP) Pulse Ox O2 Delivery O2 Flow Rate FiO2 03/21/25 04:00 97.9 66 20 118/60 100 Room Air 03/21/25 00:33 97.7 65 20 124/83 100 Room Air LABS: Laboratory: Test 03/21/25 04:38 03/20/25 08:18 03/20/25 07:08 03/19/25 21:20 Range/Units White Blood Count 9.6 4.8-10.8 K/uL Red Blood Count 4.42 L 4.50-6.20 MIL/uL Hemoglobin 13.2 L 14.0-18.0 g/dL Hematocrit 38.2 L 42-54 % Mean Corpuscular Volume 86.4 79-99 fL Mean Corpuscular Hemoglobin 29.9 27.0-33.0 pg Mean Corpuscular Hemoglobin Concent 34.6 32.0-36.0 g/dL Red Cell Distribution Width 12.2 11.0-15.5 % Platelet Count 194 130-400 K/uL Mean Platelet Volume 10.3 7.5-10.5 fL Immature Granulocyte % (Auto) 0.3 0-1 % Neutrophils (%) (Auto) 60.9 40.0-77.0 % Lymphocytes (%) (Auto) 27.9 21.0-51.0 % Monocytes (%) (Auto) 9.4 3.0-13.0 % Eosinophils (%) (Auto) 1.1 0.0-8.0 % Basophils (%) (Auto) 0.4 0.0-5.0 % Neutrophils # (Auto) 5.9 1.8-7.7 K/uL Lymphocytes # (Auto) 2.7 1.0-4.8 K/uL Monocytes # (Auto) 0.9 0.1-1.0 K/uL Eosinophils # (Auto) 0.11 0.00-0.70 K/uL Basophils # (Auto) 0.04 0.00-0.20 K/uL Absolute Immature Granulocyte (auto 0.03 0-1 K/uL Nucleated Red Blood Cells 0.0 0.0-0.19 % Sodium Level 137 136-145 mmol/L Potassium Level 3.6 3.5-5.1 mmol/L Chloride Level 103 101-111 mmol/L Carbon Dioxide Level 24 21-32 mmol/L Blood Urea Nitrogen 8 7-18 mg/dL Creatinine 1.0 0.5-1.3 mg/dL Glomerular Filtration Rate Calc 108 >90 mL/min Random Glucose 100 70-105 mg/dL Lactic Acid Level 1.3 0.8-2.5 mmol/L Total Calcium 8.7 8.5-10.1 mg/dL Total Bilirubin 0.8 # 0.2-1.0 mg/dL Aspartate Amino Transf (AST/SGOT) 14 10-37 U/L Alanine Aminotransferase (ALT/SGPT) 15 12-78 U/L Alkaline Phosphatase 58 50-136 U/L C-Reactive Protein, Quantitative 4.50 H 0.5-3.0 mg/L Total Protein 6.8 6.0-8.3 g/dL Albumin 3.8 3.5-5.0 g/dL Whole Blood Ketones Quantitative 2.9 H 0.0-0.6 mmol/L Total Creatine Kinase 120 21-232 U/L Magnesium Level 1.90 1.80-2.40 mg/dL Urine Color LIGHT-YELLOW YELLOW Urine Appearance CLEAR CLEAR Urine pH 5.5 5.0-8.0 Urine Specific [place] 1.045 H 1.001-1.031 Urine Protein NEGATIVE NEGATIVE mg/dL Urine Glucose (UA) NEGATIVE NEGATIVE mg/dL Urine Ketones 150 H NEGATIVE mg/dL Urine Occult Blood NEGATIVE NEGATIVE Urine Nitrate NEGATIVE NEGATIVE Urine Bilirubin NEGATIVE NEGATIVE mg/dL Urine Urobilinogen 0.2 0.2-1.0 mg/dL Urine Leukocyte Esterase NEGATIVE NEGATIVE Sumeet/uL Urine RBC 0-1 0-1 /HPF Urine WBC 0-1 0-1 /HPF Urine Squamous Epithelial Cells RARE 0-2 /HPF Urine Bacteria None None Seen /HPF Urine Opiates Screen POSITIVE H NEGATIVE Urine Barbiturates Screen NEGATIVE NEGATIVE Urine Phencyclidine Screen NEGATIVE NEGATIVE Urine Amphetamines Screen NEGATIVE NEGATIVE Urine Benzodiazepines Screen NEGATIVE NEGATIVE Urine Cocaine Screen NEGATIVE NEGATIVE Urine Marijuana (THC) Screen POSITIVE H NEGATIVE Test 03/19/25 11:04 Range/Units Erythrocyte Sedimentation Rate 1 0-15 MM/HR Prothrombin Time 10.7 9.6-11.6 SEC Prothromb Time International Ratio 1.01 0.85-1.15 Activated Partial Thromboplast Time 23.5 L 26.3-35.5 SEC Direct Bilirubin 0.1 0.0-0.3 mg/dL Lactate Dehydrogenase 152 81-234 U/L Lipase 19 16-77 U/L Procalcitonin < 0.05 L 0.05-0.5 ng/mL Current Medications Medications (Trade) Dose Ordered Sig/Rivera Route PRN Reason Start Time Stop Time Status Last Admin Dose Admin Acetaminophen (TYLenol 325MG TAB) 650 mg Q6H PRN PO MILD PAIN (1-3) 03/19/25 13:30 04/18/25 13:29 Ceftriaxone Sodium (ROCEphine 1G INJ) 1 gm Q24H IVPB 03/20/25 15:30 03/30/25 15:29 03/20/25 17:41 1 GM Dextrose/Sodium Chloride 1,000 ml @ 75 mls/hr [id number] IV 03/20/25 14:30 04/19/25 14:29 03/20/25 20:06 75 MLS/HR Lactated Ringer's 1,000 ml @ 75 mls/hr [id number] IV 03/19/25 15:00 03/20/25 14:15 DC 03/19/25 16:38 75 MLS/HR Metronidazole/ Sodium Chloride (flaGYL) 500 mg Q8H IV 03/20/25 15:30 03/20/25 17:41 DC Metronidazole/ Sodium Chloride (flaGYL) 500 mg Q8H IV 03/20/25 18:00 03/30/25 17:59 03/21/25 01:10 500 MG Morphine Sulfate (morPHINE 2MG SYG) 2 mg Q6H PRN IVP SEVERE PAIN (7-10) 03/19/25 13:30 03/26/25 13:29 03/19/25 20:10 2 MG Ondansetron HCl (zoFRAN 4MG INJ) 4 mg Q6H PRN IVP NAUSEA/VOMITING 03/19/25 13:30 04/18/25 13:29 03/21/25 01:10 4 MG Pantoprazole Sodium (PROTonix 40MG INJ) 40 mg Q24H IVP 03/19/25 13:30 04/18/25 13:29 03/20/25 12:47 40 MG Piperacillin Sod/ Tazobactam Sod (Zosyn 3.375gm+NS 50ml) 3.375 gm Q8H IVPB 03/19/25 20:00 03/20/25 15:17 DC 03/20/25 12:48 3.375 GM Potassium Chloride 100 ml @ 50 mls/hr AD PRN IV POTASSIUM PROTOCOL 03/19/25 13:30 04/18/25 13:29 03/19/25 14:56 50 MLS/HR Sodium Chloride (NS 50ml) 50 ml AD IV 03/19/25 18:00 03/19/25 13:16 DC Thiamine HCl (Vitamin B-1) 100 mg Q24H IVP 03/19/25 13:30 04/18/25 13:29 03/20/25 12:48 100 MG DIAGNOSTICS / RADIOLOGY: [ ] ASSESSMENT: Proximal and distal inflammatory colitis, POA rule out infectious vs Inflammatory bowel disease Significant leukocytosis w/sepsis , POA Lactic acidosis, POA Acute kidney injury, POA Dehydration, POA Acute on chronic abdominal pain, POA History of hospitalization in [facility] for proximal and distal colitis in 2022, POA Rule out inflammatory bowel disease, POA Hypokalemia, POA PATIENT LEFT AGAINST MEDICAL ADVICE Patient didnot want to continue any treatment at this time and is refusing to stay and complete evaluation and disposition. The patient is fully aware of all risks and benefits of leaving against medical advice.The risks include worsening of current medical condition including or causing . The patient verbalized understanding and signed out against medical advice . ATTESTATION BY PHYSICIAN I have seen and examined the patient. I reviewed the documentation, medical decision making, and treatment plan as noted by the resident provider above. I agree with the findings and plan of care. BRIAN FLEMING MD, MD Mar 21, 2025 06:31
--- NOTE | 2025-03-21 07:58 | NUR ---
DCP: AJIT Pt lives with his mother in a first floor apt. Pt lost his SSI when he became 19 and was denied as an adult. Mother states they are appealing his decision and pending determination. Pt on SSI for Bipolar, ADHD, depression and anxiety. Was under psych care with Dr Ruggiero. Pt has no PCP since losing his insurance. Pt is independent. No DME or in home care services. Community resources given to mother, she will take pt home at ok. Addendum: 03/21/25 at 0759 by REBECCA BELL Amended: Links added.
[2025-03-21 08:00] VITALS: BP 119/70; PULSE 66; RESP 18; TEMP 98
[2025-03-21 09:18] VITALS: O2SAT 99
--- NOTE | 2025-03-21 11:57 | NUR ---
Pt want to leave AMA this technical writer informed Dr Garnica and she spoke to the patient at the bedside. The patient has decided to leave AMA.
--- NOTE | 2025-03-21 12:02 | PN ---
GASTROENTEROLOGY PROGRESS NOTE Date of Visit: Mar 21, 2025 Time of Visit: 12:02 Events / Notes: [ ] Review of Systems: CONSTITUTIONAL: No malaise or change in sensation of wellbeing. ENMT: No rhinorrhea, otorrhea, sinus pain, ear ache. CARDIOVASCULAR: No angina, palpitations, orthopnea or paroxysmal dyspnea. RESPIRATORY: No SOB. GASTROINTESTINAL: No abdominal pain, nausea, vomiting, diarrhea, hematemesis, melena or change in the patient's habitual bowel movements consistency/number. GENITOURINARY: No dysuria, hematuria or change in bladder continence. MUSCULOSKELETAL: No new muscle pain or decrease in muscular strength. No new joint swelling, redness or tenderness. SKIN: No new rash. Physical Exam: GEN: Awake, alert, oriented in person, time and place, and in no acute distress. HEENT: No sinus tenderness. Tympanic membranes were not examined. No rhinorrhea. Oral pharyngeal mucosa is pink, moist and within normal limits. Neck is supple with no cervical lymphadenopathy, thyromegaly or JVD. CHEST: Inspection, palpation and percussion of the chest were unremarkable. Lung auscultation revealed normal breath sounds bilaterally. CARDIAC: PMI is within normal limits. Heart sounds are regular. Normal S1, S2. No gallop or murmur. ABD: Soft, non-tender and not distended. No peritoneal signs on palpation. No organomegaly. Normal bowel sounds. EXT: No cyanosis or clubbing. No edema. SKIN: Intact. No rashes. JOINTS: No evidence of synovitis or acute arthritis. NEURO: Alert and oriented to name, place and person. Cranial nerve examination is unremarkable. No focal motor deficits. Normal speech. Gait is normal. Strength is normal. Vital Signs (last 8hr) Date Time Temp Pulse Resp B/P (MAP) Pulse Ox O2 Delivery O2 Flow Rate FiO2 03/21/25 09:18 99 Room Air* 0 21 03/21/25 08:00 98.1 66 18 119/70 95 Room Air Laboratory: [ ] Laboratory: Test 03/21/25 04:38 03/20/25 08:18 03/20/25 07:08 03/19/25 21:20 Range/Units White Blood Count 9.6 4.8-10.8 K/uL Red Blood Count 4.42 L 4.50-6.20 MIL/uL Hemoglobin 13.2 L 14.0-18.0 g/dL Hematocrit 38.2 L 42-54 % Mean Corpuscular Volume 86.4 79-99 fL Mean Corpuscular Hemoglobin 29.9 27.0-33.0 pg Mean Corpuscular Hemoglobin Concent 34.6 32.0-36.0 g/dL Red Cell Distribution Width 12.2 11.0-15.5 % Platelet Count 194 130-400 K/uL Mean Platelet Volume 10.3 7.5-10.5 fL Immature Granulocyte % (Auto) 0.3 0-1 % Neutrophils (%) (Auto) 60.9 40.0-77.0 % Lymphocytes (%) (Auto) 27.9 21.0-51.0 % Monocytes (%) (Auto) 9.4 3.0-13.0 % Eosinophils (%) (Auto) 1.1 0.0-8.0 % Basophils (%) (Auto) 0.4 0.0-5.0 % Neutrophils # (Auto) 5.9 1.8-7.7 K/uL Lymphocytes # (Auto) 2.7 1.0-4.8 K/uL Monocytes # (Auto) 0.9 0.1-1.0 K/uL Eosinophils # (Auto) 0.11 0.00-0.70 K/uL Basophils # (Auto) 0.04 0.00-0.20 K/uL Absolute Immature Granulocyte (auto 0.03 0-1 K/uL Nucleated Red Blood Cells 0.0 0.0-0.19 % Sodium Level 137 136-145 mmol/L Potassium Level 3.6 3.5-5.1 mmol/L Chloride Level 103 101-111 mmol/L Carbon Dioxide Level 24 21-32 mmol/L Blood Urea Nitrogen 8 7-18 mg/dL Creatinine 1.0 0.5-1.3 mg/dL Glomerular Filtration Rate Calc 108 >90 mL/min Random Glucose 100 70-105 mg/dL Lactic Acid Level 1.3 0.8-2.5 mmol/L Total Calcium 8.7 8.5-10.1 mg/dL Total Bilirubin 0.8 # 0.2-1.0 mg/dL Aspartate Amino Transf (AST/SGOT) 14 10-37 U/L Alanine Aminotransferase (ALT/SGPT) 15 12-78 U/L Alkaline Phosphatase 58 50-136 U/L C-Reactive Protein, Quantitative 4.50 H 0.5-3.0 mg/L Total Protein 6.8 6.0-8.3 g/dL Albumin 3.8 3.5-5.0 g/dL Whole Blood Ketones Quantitative 2.9 H 0.0-0.6 mmol/L Total Creatine Kinase 120 21-232 U/L Magnesium Level 1.90 1.80-2.40 mg/dL Urine Color LIGHT-YELLOW YELLOW Urine Appearance CLEAR CLEAR Urine pH 5.5 5.0-8.0 Urine Specific [place] 1.045 H 1.001-1.031 Urine Protein NEGATIVE NEGATIVE mg/dL Urine Glucose (UA) NEGATIVE NEGATIVE mg/dL Urine Ketones 150 H NEGATIVE mg/dL Urine Occult Blood NEGATIVE NEGATIVE Urine Nitrate NEGATIVE NEGATIVE Urine Bilirubin NEGATIVE NEGATIVE mg/dL Urine Urobilinogen 0.2 0.2-1.0 mg/dL Urine Leukocyte Esterase NEGATIVE NEGATIVE Sumeet/uL Urine RBC 0-1 0-1 /HPF Urine WBC 0-1 0-1 /HPF Urine Squamous Epithelial Cells RARE 0-2 /HPF Urine Bacteria None None Seen /HPF Urine Opiates Screen POSITIVE H NEGATIVE Urine Barbiturates Screen NEGATIVE NEGATIVE Urine Phencyclidine Screen NEGATIVE NEGATIVE Urine Amphetamines Screen NEGATIVE NEGATIVE Urine Benzodiazepines Screen NEGATIVE NEGATIVE Urine Cocaine Screen NEGATIVE NEGATIVE Urine Marijuana (THC) Screen POSITIVE H NEGATIVE Current Medications Medications (Trade) Dose Ordered Sig/Rivera Route PRN Reason Start Time Stop Time Status Last Admin Dose Admin Acetaminophen (TYLenol 325MG TAB) 650 mg Q6H PRN PO MILD PAIN (1-3) 03/19/25 13:30 04/18/25 13:29 Ceftriaxone Sodium (ROCEphine 1G INJ) 1 gm Q24H IVPB 03/20/25 15:30 03/30/25 15:29 03/20/25 17:41 1 GM Dextrose/Sodium Chloride 1,000 ml @ 75 mls/hr [id number] IV 03/20/25 14:30 04/19/25 14:29 03/20/25 20:06 75 MLS/HR Lactated Ringer's 1,000 ml @ 75 mls/hr [id number] IV 03/19/25 15:00 03/20/25 14:15 DC 03/19/25 16:38 75 MLS/HR Metronidazole/ Sodium Chloride (flaGYL) 500 mg Q8H IV 03/20/25 15:30 03/20/25 17:41 DC Metronidazole/ Sodium Chloride (flaGYL) 500 mg Q8H IV 03/20/25 18:00 03/30/25 17:59 03/21/25 01:10 500 MG Morphine Sulfate (morPHINE 2MG SYG) 2 mg Q6H PRN IVP SEVERE PAIN (7-10) 03/19/25 13:30 03/26/25 13:29 03/19/25 20:10 2 MG Ondansetron HCl (zoFRAN 4MG INJ) 4 mg Q6H PRN IVP NAUSEA/VOMITING 03/19/25 13:30 04/18/25 13:29 03/21/25 01:10 4 MG Pantoprazole Sodium (PROTonix 40MG INJ) 40 mg Q24H IVP 03/19/25 13:30 04/18/25 13:29 03/20/25 12:47 40 MG Piperacillin Sod/ Tazobactam Sod (Zosyn 3.375gm+NS 50ml) 3.375 gm Q8H IVPB 03/19/25 20:00 03/20/25 15:17 DC 03/20/25 12:48 3.375 GM Potassium Chloride 100 ml @ 50 mls/hr AD PRN IV POTASSIUM PROTOCOL 03/19/25 13:30 04/18/25 13:29 03/19/25 14:56 50 MLS/HR Sodium Chloride (NS 50ml) 50 ml AD IV 03/19/25 18:00 03/19/25 13:16 DC Thiamine HCl (Vitamin B-1) 100 mg Q24H IVP 03/19/25 13:30 04/18/25 13:29 03/20/25 12:48 100 MG Diagnostics / Radiology: [COPY/PASTE HERE IF NO REPORTS PLEASE DELETE SECTION] Assessment: Abnormal imaging revealing colitis Abdominal pain Plan: Colonoscopy in [facility] Mar 21, 2025 12:02
--- NOTE | 2025-03-21 13:01 | NUR ---
PT signs out AMA The AMA form was signed and Dr Garnica was made aware when she was at bedside. PIVs are removed and the patient packed his belongings. The patient then waled of the unit with ehis mother.
--- NOTE | 2025-03-21 14:55 | DS ---
Discharge Summary Hospital Course Summary: 24-year-old male with prior history of colitis requiring hospitalization in [facility] in 2022 presented to the ER for further evaluation of lower abdominal pain [id number] intensity. Patient states that he has been having chronic abdominal pain and nausea ongoing for about one month which he rates as mild in intensity. Overnight and since this morning, the abdominal pain acutely worsened which he rated as 7-8/10,and he vomited couple of times prompting him to come to the ER for further evaluation. He admits unintentional weight loss of 15 to 20 lbs since November 2024, cocaine snorting in the past and constipation ( bowel movement twice a week ). He denied fever, SOB, cough , palpitations, hematochezia, hematemesis or signs of GI bleeding. Patient reports that he was hospitalized in [facility] last year with similar complaint for about 2-3 days. He has not had GI evaluation as outpatient. Patient denies family history of inflammatory bowel disease or GI issues otherwise. On presentation to the hospital, patient was noted to be afebrile and hemodynamically stable. [place] [address], hemoglobin of 16.1, platelet count of 278,000. BMP showed sodium of 141, potassium 3.4, chloride of 100, CO2 of 16, BUN of 18, creatinine 1.4, lactic acid of 6.5 Patient underwent further evaluation with CT abdomen pelvis with IV contrast which showed findings of inflammatory colitis involving the proximal and distal colon.Patient was admitted for further evaluation and treatment . 25: Patient is seen resting comfortably in the bed. He complaints of mild abdominal pain 2/10 intensity .His labs have considerably improved. Lactic acid down trended to 1.5, High anion hap decreased from 25 to 13, improving creatinine. He is being treated wit h IV antibiotics and IV fluids .Surgery recommends no surgical intervention indicated at this time .Pending GI recommendations . 25: Patient is seen resting in his bed. His abdominal pain has resolved . Labs are stable . Planning for colonoscopy today am. Addendum: Colonoscopy was cancelled because the prep was incomplete . Patient couldn't drink the full amount of PEG. Patient informed that he will Leave ainst Medical advice . ASSESSMENT: Proximal and distal inflammatory colitis, POA rule out infectious vs Inflammatory bowel disease Significant leukocytosis w/sepsis , POA Lactic acidosis, POA Acute kidney injury, POA Dehydration, POA Acute on chronic abdominal pain, POA History of hospitalization in [facility] for proximal and distal colitis in 2022, POA Rule out inflammatory bowel disease, POA Hypokalemia, POA PATIENT LEFT AGAINST MEDICAL ADVICE Patient didnot want to continue any treatment at this time and is refusing to stay and complete evaluation and disposition. The patient is fully aware of all risks and benefits of leaving against medical advice.The risks include worsening of current medical condition including or causing . The patient verbalized understanding and signed out against medical advice . ATTESTATION BY PHYSICIAN I have seen and examined the patient. I reviewed the documentation, medical decision making, and treatment plan as noted by the resident provider above. I agree with the findings and plan of care. BRIAN FLEMING MD, MD Mar 21, 2025 06:31 Assessment/Plan: ASSESSMENT: Proximal and distal inflammatory colitis, POA rule out infectious vs Inflammatory bowel disease Significant leukocytosis w/sepsis , POA Lactic acidosis, POA Acute kidney injury, POA Dehydration, POA Acute on chronic abdominal pain, POA History of hospitalization in [facility] for proximal and distal colitis in 2022, POA Rule out inflammatory bowel disease, POA Hypokalemia, POA PATIENT LEFT AGAINST MEDICAL ADVICE Patient didnot want to continue any treatment at this time and is refusing to stay and complete evaluation and disposition. The patient is fully aware of all risks and benefits of leaving against medical advice.The risks include worsening of current medical condition including or causing . The patient verbalized understanding and signed out against medical advice . Home Medications: Active Scripts Ibuprofen (Ibuprofen 800 mg Tab) 800 Mg Tab, 800 MG PO Q8H PRN for fever or pain, #30 TAB 0 Refills Prov:JOAQUIN CASIANO [employer]IC[employer] 01/21/25 Cephalexin (Cephalexin) 500 Mg Capsule, 500 MG PO BID, #10 CAP 0 Refills Prov:GRACIA BINGHAM 07/24/23 BRIAN BOND MD Mar 21, 2025 14:55
--- NOTE | 2025-03-24 10:37 | NUR ---
Transitional Phone Call Spoke to Ainsley Monroy, Mother [phone], speaks Kinyarwanda. Patient signed out AMA. [facility] patient "se millicent basilio," and has not complained of the pain he had when he was in the hospital. [facility] patient has not had a follow up visit because he does not have insurance; referred to [facility]; [facility] did not receive [facility]; provided [facility] phone number at this time. No further questions or concerns at this time.
== END 2025-03-21 13:15 | disposition home or self-care (01) | DRG 872 ==
LOC: EDH 10:26 → EDHIP 10:27 → 3BH 03-20 18:00
PROVIDERS: ADMIT Internal Medicine; ATTEND Internal Medicine
DX: A41.9 Sepsis, unspecified organism (principal); E87.20 Acidosis, unspecified; N17.9 Acute kidney failure, unspecified; E86.0 Dehydration; E87.6 Hypokalemia; G89.29 Other chronic pain; K52.9 Noninfective gastroenteritis and colitis, unspecified; F19.90 Other psychoactive substance use, unspecified, uncomplicated; K59.00 Constipation, unspecified; Z53.29 Procedure and treatment not carried out because of patient's decision for other reasons; Z79.899 Other long term (current) drug therapy
CPT/HCPCS: 36415; 71045; 74177; 76705; 80048; 80053; 80076; 80305; 81001; 82010; 82550; 83605; 83615; 83690; 83735; 84145; 85025; 85610; 85651; 85730; 86140; 87040; G0378; J0696; J1885; J2270; J2405; J2470; J2543; J3411; J3480; J3490; Q9967

== ENCOUNTER 2025-10-08 23:53 | Inpatient (IN) | payer SELFPAY ==
[~2025-10-08] VITALS: Ht 167.6 cm; Wt 60.3 kg
[2025-10-09] VITALS (13 sets, daily range): BP systolic 115–135; BP diastolic 61–76; PULSE 84–127; RESP 16–20; TEMP 98–102.9; O2SAT 92–100
[2025-10-09 00:12] LABS: IMMATURE GRANULOCYTE ABSOLUTE 0.10 K/uL (0-1); NUCLEATED RED BLOOD CELLS 0.0 % (0.0-0.19); PLATELET COUNT (AUTO) 246 K/uL (130-400); RED BLOOD CELL COUNT(AUTO) 4.98 MIL/uL (4.50-6.20); RED CELL DISTRIBUTION WIDTH 12.7 % (11.0-15.5); WHITE BLOOD COUNT (AUTO) 11.8 K/uL (4.8-10.8)
--- NOTE | 2025-10-09 00:13 | EKG ---
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
[2025-10-09 00:26] LABS: CREATININE 1.2 mg/dL (0.5-1.3); GLOMERULAR FILTR. RATE CALC 87.0 mL/min (>90); GLUCOSE,RANDOM 118.0 mg/dL (70-105); SODIUM SERUM 136.0 mmol/L (136-145); UREA NITROGEN, BLOOD 16.0 mg/dL (7-18)
[2025-10-09 00:32] LABS: CREATINE KINASE, TOTAL 121.0 U/L (21-232)
[2025-10-09 00:39] LABS: COVID19 (SARS ANTIGEN RAPID) PRESUMPTIVE NEGATIVE (NEGATIVE); INFLUENZA TYPE A Negative For Type A (NEGATIVE); INFLUENZA TYPE B Negative For Type B (NEGATIVE)
--- NOTE | 2025-10-09 00:47 | ERN ---
ED Note History of Present Illness Stated Complaint: FEVER, COUGH, BODYACHES Chief Complaint: Sepsis Time Seen by MD: 23:55 Dictation: Patient is a 25 old male who presents to the ER complaining of body aches, sore throat, fever, chills. Symptoms started yesterday with the body aches and sore throat, to the history of having fever as well. Denies chest pain. Allergies: Coded Allergies: No Known Allergies (Unverified Allergy, Unknown, 07/22/23) Home Meds Active Scripts Ibuprofen (Ibuprofen 800 mg Tab) 800 Mg Tab, 800 MG PO Q8H PRN for fever or pain, #30 TAB 0 Refills Prov:JOAQUIN CASIANO [employer] 01/21/25 Cephalexin (Cephalexin) 500 Mg Capsule, 500 MG PO BID, #10 CAP 0 Refills Prov:GRACIA BINGHAM [employer] RAMPMAN 07/24/23 Past Medical History Past Medical History: Anxiety, Bipolar, GERD Surgical History: None Review of System Dictation NEGATIVE EXCEPT PER HPI Constitutional: Reports fever, body weakness Eyes: Negative for injury, pain,redness, and discharge ENT: Negative for injury,pain or swelling Cardiovascular: denies chest pain, palpitations, and edema Respiratory: Sore throat Abdomen/GI: Negative for abdominal pain, nausea, vomiting, diarrhea, and constipation Back: Negative for injury and pain : Negative for injury, bleeding and discharge MS/Extremity: Negative for injury and deformity Skin: Negative for rash, and discoloration Neuro: Negative for headache, weakness, numbness, tingling, and seizure Psych: Negative for suicide ideation, homicidal ideation, and hallucinations Initial Vital Sign VS Vital Signs Date Time Temp Pulse Resp B/P (MAP) Pulse Ox O2 Delivery O2 Flow Rate FiO2 10/08/25 23:54 101.5 137 24 128/72 99 Room Air 10/09/25 00:02 0 21 Physical Exam Dictation General: awake, alert, NAD Head/Face: Normocephalic, atraumatic Eyes: PERRL, EOMI, vision at baseline ENT: oral cavity clear, TMs clear, no signs of infection Neck: Trachea midline, supple, no nuchal rigidity Cardiovascular: Increased heart rate, no murmur. Respiratory: CTAB, no respiratory distress, No rales or wheezes Abdomen: Soft , no tender Skin: Warm, dry, normal turgor, no rash MS/Extremity: Pulses equal, no cyanosis, neurovascular intact, FROM Neuro: COAx4, GCS 15, strength 5/5, CN 2-12 intact, normal cerebellar exam, normal gait, Psych: Normal behavior, mood, and affect normal Results (Laboratory/Radiology) Laboratory/Radiology Laboratory Tests Test 10/09/25 00:03 10/09/25 00:10 10/09/25 01:08 White Blood Count 11.8 K/uL (4.8-10.8) H Red Blood Count 4.98 MIL/uL (4.50-6.20) Hemoglobin 14.9 g/dL (14.0-18.0) Hematocrit 41.5 % (42-54) L Mean Corpuscular Volume 83.3 fL (79-99) Mean Corpuscular Hemoglobin 29.9 pg (27.0-33.0) Mean Corpuscular Hemoglobin Concent 35.9 g/dL (32.0-36.0) Red Cell Distribution Width 12.7 % (11.0-15.5) Platelet Count 246 K/uL (130-400) Mean Platelet Volume 10.1 fL (7.5-10.5) Immature Granulocyte % (Auto) 0.9 % (0-1) Neutrophils (%) (Auto) 82.6 % (40.0-77.0) H Lymphocytes (%) (Auto) 6.8 % (21.0-51.0) L Monocytes (%) (Auto) 8.7 % (3.0-13.0) Eosinophils (%) (Auto) 0.6 % (0.0-8.0) Basophils (%) (Auto) 0.4 % (0.0-5.0) Neutrophils # (Auto) 9.7 K/uL (1.8-7.7) H Lymphocytes # (Auto) 0.8 K/uL (1.0-4.8) L Monocytes # (Auto) 1.0 K/uL (0.1-1.0) Eosinophils # (Auto) 0.07 K/uL (0.00-0.70) Basophils # (Auto) 0.05 K/uL (0.00-0.20) Absolute Immature Granulocyte (auto 0.10 K/uL (0-1) Nucleated Red Blood Cells 0.0 % (0.0-0.19) White Cell Morphology Comment See comments Sodium Level 136 mmol/L (136-145) Potassium Level 3.5 mmol/L (3.5-5.1) Chloride Level 102 mmol/L (101-111) Carbon Dioxide Level 21 mmol/L (21-32) Blood Urea Nitrogen 16 mg/dL (7-18) Creatinine 1.2 mg/dL (0.5-1.3) Glomerular Filtration Rate Calc 87 mL/min (>90) Random Glucose 118 mg/dL (70-105) H Lactic Acid Level 2.8 mmol/L (0.8-2.5) H Total Calcium 9.1 mg/dL (8.5-10.1) Total Creatine Kinase 121 U/L (21-232) Troponin I High Sensitivity < 4 ng/L (4-75) L Influenza Type A Antigen Negative For Type A Influenza Type B Antigen Negative For Type B SARS-CoV-2 Antigen (Rapid) PRESUMPTIVE NEGATIVE Group A Streptococcus Rapid negative (NEGATIVE) Urine Color LIGHT-YELLOW (YELLOW) Urine Appearance CLEAR (CLEAR) Urine pH 8.0 (5.0-8.0) Urine Specific [place] 1.020 (1.001-1.031) Urine Protein NEGATIVE mg/dL (NEGATIVE) Urine Glucose (UA) NEGATIVE mg/dL (NEGATIVE) Urine Ketones NEGATIVE mg/dL (NEGATIVE) Urine Occult Blood NEGATIVE (NEGATIVE) Urine Nitrate NEGATIVE (NEGATIVE) Urine Bilirubin NEGATIVE mg/dL (NEGATIVE) Urine Urobilinogen 0.2 mg/dL (0.2-1.0) Urine Leukocyte Esterase NEGATIVE Sumeet/uL ED Course ED Course Orders Procedure Category Date Status Time Iv Insertion CPOE 10/09/25 Transmitted 00:05 Pulse Ox(Continuous) RT 10/09/25 Transmitted 00:05 Vital Signs Per CPOE 10/09/25 Transmitted Routine 00:05 12 Lead Ekg Tracing- EKG 10/09/25 Complete Technical 00:05 Cbc With Differential LAB 10/09/25 Complete 00:05 Blood Cult SATISH 10/09/25 In Process 00:05 Urinalysis Profile LAB 10/09/25 Complete 00:05 Culture Urine SATISH 10/09/25 In Process 00:05 Creatine Kinase, Total LAB 10/09/25 Complete 00:05 Troponin I High LAB 10/09/25 Complete Sensitivity 00:05 Lactic Acid LAB 10/09/25 Complete 00:05 Basic Metabolic Panel LAB 10/09/25 Complete 00:05 Influenza Type A & B, LAB 10/09/25 Complete Rapid 00:06 Covid19 (Sars Antigen LAB 10/09/25 Complete Rapid) 00:06 Acetaminophen 325 Tab PHA 10/09/25 Complete (Tylenol 325mg Tab 00:30 Rapid (Group A Strep) LAB 10/09/25 Complete 00:09 Chest 1vw RAD 10/09/25 Resulted 00:08 Ceftriaxone 1g Vial PHA 10/09/25 Complete (Rocephine 1g Inj) 01:00 Ondansetron 4mg Inj PHA 10/09/25 Complete (Zofran 4mg Inj) 01:10 0.9%Nacl 1000ml (Ns PHA 10/09/25 Complete 1000ml) 01:30 Ondansetron 4mg Inj PHA 10/09/25 Complete (Zofran 4mg Inj) 01:30 0.9%Nacl 1000ml (Ns PHA 10/09/25 Complete 1000ml) 01:30 Ketorolac PHA 10/09/25 In Process Tromethamine 15mg/Ml 02:30 Current Medications Medications (Trade) Dose Ordered Sig/Rivera Route PRN Reason Start Time Stop Time Status Last Admin Dose Admin Acetaminophen (TYLenol 325MG TAB) 650 mg ONCE ONCE PO 10/09/25 00:30 10/09/25 00:31 DC 10/09/25 00:34 Ceftriaxone Sodium (ROCEphine 1G INJ) 1 gm ONCE ONCE IVPB 10/09/25 01:00 10/09/25 01:01 DC 10/09/25 01:16 Ketorolac Tromethamine (toRADol) 15 mg ONCE ONCE IV 10/09/25 02:30 10/09/25 02:31 Ondansetron HCl (zoFRAN 4MG INJ) 4 mg ONCE ONCE IVP 10/09/25 01:30 10/09/25 01:31 DC 10/09/25 01:16 Ondansetron HCl (zoFRAN 4MG INJ) 4 mg STK-MED ONCE .ROUTE 10/09/25 01:10 10/09/25 01:10 DC Sodium Chloride 1,000 ml @ 0 mls/hr ONCE ONCE IV 10/09/25 01:30 10/09/25 01:12 DC Sodium Chloride 1,000 ml @ 0 mls/hr ONCE ONCE IV 10/09/25 01:30 10/09/25 01:31 DC 10/09/25 01:21 Vital Signs Date Time Temp Pulse Resp B/P (MAP) Pulse Ox O2 Delivery O2 Flow Rate FiO2 10/09/25 00:34 100.9 10/09/25 00:02 100.9 129 18 132/82 98 Room Air* 0 21 10/08/25 23:54 101.5 137 24 128/72 99 Room Air Medical Decision Making MDM Patient presented with fever, tachycardia Heart rate 137 Temperature 101.5 1.Severe Sepsis---> protocol started Laboratory remarkable for lactic acid 2.8 Negative for COVID, influenza Chest x-ray ordered to rule out pneumonia Ceftriaxone 1 g ordered. Patient was re-evaluate the bedside at 2:24 , states that he is still feeling the same, has generalized body aches, cough, he does denies abdominal pain. I will contact the hospitalist team for further admission for observation DX & DISP Disposition: Observation Decision to Admit Date: Oct 09, 2025 Departure Impression: Primary Impression: Severe sepsis Condition: Stable Referrals: SELF,REFERRAL (PCP) Patient was accepted by the hospitalist team for further medical workup. DEMETRIO MIRANDA MD Oct 09, 2025 00:47
[2025-10-09 01:17] LABS: APPEARANCE,URINE CLEAR (CLEAR); GLUCOSE, URINE (UA) NEGATIVE (NEGATIVE); LEUKOCYTE ESTERASE ,URINE NEGATIVE Leu/uL (NEGATIVE); NITRATE,URINE NEGATIVE (NEGATIVE); OCCULT BLOOD,URINE NEGATIVE (NEGATIVE)
[2025-10-09 01:18] LABS: ADD UA MICROSCOPIC NO
[2025-10-09] MEDS: 0.9%NACL 1000ML 1,000 ML IV ONE (01:21)
[2025-10-09] MEDS ORDERED: 0.9%NACL 1000ML 1,000 ML IV ONE (01:30)
--- NOTE | 2025-10-09 02:01 | HMCIMG ---
EXAM: CR Chest, 1 view CLINICAL HISTORY: Sepsis. Pneumonia. COMPARISON: None provided. FINDINGS: Hyperinflated lungs, likely mild bronchial asthma. The lungs show no infiltrates or other acute findings. No pleural effusion or pneumothorax. The cardiomediastinal silhouette is within normal limits. No acute osseous abnormality. IMPRESSION: Hyperinflated lungs, likely mild bronchial asthma. No focal consolidation, pneumonia, effusion, or pneumothorax. /[place]
--- NOTE | 2025-10-09 03:22 | HP ---
[facility] HISTORY AND PHYSICAL Date of Service: Oct 09, 2025 Time of Service: 03:01 PCP: Self-referral HISTORY OF PRESENT ILLNESS: This is a 25-year-old male with past medical history of anxiety disorder,Bipolar and asthma who presents to the ED complaints of body aches, sore throat, fever, chills and cough which worsened today.Patient reports he has been having cough for the past 2 days and started having sore throat yesterday and patient took some Dayquil and in the morning he developed sorethroat and inthe afternoon he started having body aches and fever .Patient reports he vomited x 1 today so he decided to come to the Ed for evaluation.Patient denies recent travel and did not received flu shot he said.Patient reports his mother and stepdad are both sick and have the same symptoms but are taking meds and they are at home he said. Seen and examined patient in the ED awake,alert and coherent,patient states his right chest and right ribs hurts when he coughs.Patient denies palpitation,shortness of breath ,diarrhea and abdominal pain. Vital signs temperature 101.5, heart rate 137, blood pressure 132/82 saturation 98% on room air. Labs: WBC 11 with negative left shift of neutrophils 82, hemoglobin 14, hematocrit 41, platelet count 246. Glucose 118, lactic acid 2.8, troponin less than four, yhe rest of the chemistry is unremarkable. Urinalysis is normal. Influenza type a and B negative, SARS COVID negative group a strep negative. EKG result revealed sinus tachycardia heart rate 130. Chest x-ray result revealed hyperinflated lungs likely mild bronchial asthma. No focal consultation, pneumonia, effusion or pneumothorax. While in the ER patient received Tylenol 650 mg p.o., Rocephin 1 g IV, Zofran 4 mg IV, 1 L NS bolus, Toradol 15 mg IV and Robitussin 100 mg p.o.. We will admit patient for further medical management. REVIEW OF SYSTEMS CONSTITUTIONAL: Complain of fever and chills Deniesnight sweats. No unintentional weight loss reported. NEUROLOGICAL: Complained of body aches Denies headache, amaurosis fugax, motor weakness, sensory deficit, vertigo/spinning sensation, gait abnormalities, or tremors. ENT: Complain of sore throat No hearing loss, otalgia, otorrhea, rhinitis, rhinorrhea, hoarseness. CARDIOVASCULAR: Denies any exertional angina, dyspnea on exertion, orthopnea, paroxysmal nocturnal dyspnea, palpitations, life-threatening arrhythmias, claudication. PULMONARY: Complained of productive Cough and pleuritic chest pain Denies any shortness of breath,hemoptysis. SLEEP: Denies morning headaches, daytime somnolence or napping. Denies difficulty falling asleep, staying asleep, waking from sleep. Denies knowledge of snoring. GASTROINTESTINAL: Complaints of vomiting Denies any type of dysphagia to either liquids or solids. Denies nausea, pyrosis, early satiety, abdominal pain, diarrhea, constipation, or changes in stool consistency or caliber. Denies coffee-ground emesis, hematemesis, hematochezia, or melanotic stools. GENITOURINARY: Denies frequency, urgency, nocturia, hematuria or incontinence (Storage/Irritative symptoms.) Low urinary stream, straining to void, urinary intermittency or hesitancy, splitting of the voiding stream, terminal dribbling. ENDOCRINOLOGIC: Denies polyuria, polydipsia, polyphagia or heat/cold intolerances. HEMATOLOGIC: Denies thrombophilia/previous clots, or coagulopathy/bleeding disorders. ONCOLOGIC: Denies personal history of malignancy. DERMATOLOGIC: Denies rashes or pruritus. PSYCHIATRIC: Denies any suicidal or homicidal ideation. Denies hallucinations. PAST MEDICAL HISTORY: [ Bipolar, asthma and anxiety disorder ] PAST SURGICAL HISTORY: [ Patient denies ] PAST SOCIAL HISTORY: [ Patient lives with family. Patient denies alcohol tobacco and recreational drug use ] FAMILY HISTORY: [Alzheimer's disease] Coded Allergies: No Known Allergies (Unverified Allergy, Unknown, 07/22/23) PHYSICAL EXAM GENERAL APPEARANCE: The patient is awake, alert, and oriented, in no acute cardiopulmonary distress. NEUROLOGICAL: Cranial nerves II-XII grossly intact. Motor is 5/5 in bilateral upper and lower extremities proximal to distal. No sensory deficits. HEENT: Face is symmetric. Pupils are equal and reactive. Extraocular movements are intact. NECK: Supple. No JVD. No thyromegaly. No submental, submandibular, pre- /postauricular, occipital or supraclavicular lymphadenopathy. CHEST: Normal chest expansion. No Telemetry. LUNGS: Absence of any rales, rhonchi or any wheezing. CARDIOVASCULAR: Tachycardic Regular. S1 and S2 normal. No appreciable rubs, murmurs or gallops. ABDOMEN: Soft, nontender, and nondistended. There is no rebound, voluntary guarding, or rigidity. : Deferred. No Orta. EXTREMITIES: Non-edematous and not cyanotic. No clubbing. Good capillary refill. SKIN: No skin breakdown. Vital Sign (Last 24 Hours) 10/09/25 10/09/25 00:02 00:34 Temp 100.9 Pulse 129 Resp 18 B/P (MAP) 132/82 Pulse Ox 98 O2 Delivery Room Air* O2 Flow Rate 0 FiO2 21 LABS: Laboratory: Test 10/09/25 01:08 10/09/25 00:10 10/09/25 00:03 Range/Units Urine Color LIGHT-YELLOW YELLOW Urine Appearance CLEAR CLEAR Urine pH 8.0 5.0-8.0 Urine Specific [place] 1.020 1.001-1.031 Urine Protein NEGATIVE NEGATIVE mg/dL Urine Glucose (UA) NEGATIVE NEGATIVE mg/dL Urine Ketones NEGATIVE NEGATIVE mg/dL Urine Occult Blood NEGATIVE NEGATIVE Urine Nitrate NEGATIVE NEGATIVE Urine Bilirubin NEGATIVE NEGATIVE mg/dL Urine Urobilinogen 0.2 0.2-1.0 mg/dL Urine Leukocyte Esterase NEGATIVE NEGATIVE Sumeet/uL Influenza Type A Antigen Negative For Type A NEGATIVE Influenza Type B Antigen Negative For Type B NEGATIVE SARS-CoV-2 Antigen (Rapid) PRESUMPTIVE NEGATIVE NEGATIVE Group A Streptococcus Rapid negative NEGATIVE White Blood Count 11.8 H 4.8-10.8 K/uL Red Blood Count 4.98 4.50-6.20 MIL/uL Hemoglobin 14.9 14.0-18.0 g/dL Hematocrit 41.5 L 42-54 % Mean Corpuscular Volume 83.3 79-99 fL Mean Corpuscular Hemoglobin 29.9 27.0-33.0 pg Mean Corpuscular Hemoglobin Concent 35.9 32.0-36.0 g/dL Red Cell Distribution Width 12.7 11.0-15.5 % Platelet Count 246 130-400 K/uL Mean Platelet Volume 10.1 7.5-10.5 fL Immature Granulocyte % (Auto) 0.9 0-1 % Neutrophils (%) (Auto) 82.6 H 40.0-77.0 % Lymphocytes (%) (Auto) 6.8 L 21.0-51.0 % Monocytes (%) (Auto) 8.7 3.0-13.0 % Eosinophils (%) (Auto) 0.6 0.0-8.0 % Basophils (%) (Auto) 0.4 0.0-5.0 % Neutrophils # (Auto) 9.7 H 1.8-7.7 K/uL Lymphocytes # (Auto) 0.8 L 1.0-4.8 K/uL Monocytes # (Auto) 1.0 0.1-1.0 K/uL Eosinophils # (Auto) 0.07 0.00-0.70 K/uL Basophils # (Auto) 0.05 0.00-0.20 K/uL Absolute Immature Granulocyte (auto 0.10 0-1 K/uL Nucleated Red Blood Cells 0.0 0.0-0.19 % White Cell Morphology Comment See comments Sodium Level 136 136-145 mmol/L Potassium Level 3.5 3.5-5.1 mmol/L Chloride Level 102 101-111 mmol/L Carbon Dioxide Level 21 21-32 mmol/L Blood Urea Nitrogen 16 7-18 mg/dL Creatinine 1.2 0.5-1.3 mg/dL Glomerular Filtration Rate Calc 87 >90 mL/min Random Glucose 118 H 70-105 mg/dL Lactic Acid Level 2.8 H 0.8-2.5 mmol/L Total Calcium 9.1 8.5-10.1 mg/dL Total Creatine Kinase 121 21-232 U/L Troponin I High Sensitivity < 4 L 4-75 ng/L DIAGNOSTICS / RADIOLOGY: [ ] ASSESSMENT: Sepsis due to suspected respiratory infection POA Mild JASON POA PLAN: We will admit patient in medical surgical We will start on regular diet We will start NS @ 100 ml / hr x2 bags and re evaluate We will start on Rocephin 1 g IV and doxycycline IV for broad-spectrum coverage We will start on famotidine 20 mg p.o. daily for GI prophylaxis We will replace electrolytes as needed per protocol We will add prn medication for fever,pain,cough , nausea and vomiting We will request for sputum culture and follow-up result We will request labs in am Further orders to follow depending on above results Case discussed with attending physician and came up with above treatment and plan of care. ADVANCED CARE PLANNING 1. Which of the following were discussed? Hospice Care - No Therapeutic options - Yes Advance Directives - NO Other discussions - 2. Discussed with who? Patient 3. Voluntary nature of this service was explained to the patient? Yes 4. Amount of time spent - __20 min 5. Reviewed by Physician? (if this service was performed by NPP) Yes Patient seen and examined by me. Agree with note by INTAKE RN SEE ADDITIONAL ORDERS PER CHART DISCUSSED WITH NURSING STAFF CALVIN LAWRENCE [employer] CON[employer]TER HELPER Oct 09, 2025 03:22
--- NOTE | 2025-10-09 04:00 | NUR ---
REPORT GIVEN TO NURSE MICHELE AT THIS TIME
[2025-10-09] MEDS: DOXYCYCLINE 100MG+NS 250ML 250 ML IV SCH (04:10)
[2025-10-09] MEDS: 0.9%NACL 1000ML 1,000 ML IV SCH (04:10)
[2025-10-09 05:11] LABS: IMMATURE GRANULOCYTE ABSOLUTE 0.11 K/uL (0-1); NUCLEATED RED BLOOD CELLS 0.0 % (0.0-0.19); PLATELET COUNT (AUTO) 199 K/uL (130-400); RED BLOOD CELL COUNT(AUTO) 4.07 MIL/uL (4.50-6.20); RED CELL DISTRIBUTION WIDTH 12.9 % (11.0-15.5); WHITE BLOOD COUNT (AUTO) 10.1 K/uL (4.8-10.8)
[2025-10-09 05:30] LABS: ASPARTATE AMINOTRANSFERASE 13.0 U/L (10-37); CREATININE 1.2 mg/dL (0.5-1.3); GLOMERULAR FILTR. RATE CALC 87.0 mL/min (>90); GLUCOSE,RANDOM 129.0 mg/dL (70-105); SODIUM SERUM 140.0 mmol/L (136-145); TOTAL PROTEIN, SERUM 6.3 g/dL (6.0-8.3); UREA NITROGEN, BLOOD 13.0 mg/dL (7-18)
[2025-10-09] MEDS: SODIUM CHLORIDE 3% FOR INHALATION 4 ML/AMP VIAL.NEB IH ONE ×3 (06:18→13:41)
[2025-10-09] MEDS ORDERED: PoTASSium chl 10% ELIXIR 20MEQ 20 MEQ/15 ML UDCUP PO PRN (07:30)
[2025-10-09] MEDS: PoTASSium chloRIDE 20MEQ ER 20 MEQ ERTAB PO PRN (08:49)
[2025-10-09] MEDS: MAGNESIUM 2GM PREMIX 50ML 50 ML IV PRN (08:50)
[2025-10-09] MEDS: FAMOTIDINE 20MG TAB PO SCH (08:50)
--- NOTE | 2025-10-09 10:38 | NUR ---
DCP:HOME Pt currently lives at home with his mother. Pt denies any DME, home health, or provider services. Pt states that he is able to complete ADLs independently. Pt does not have PCP, sw provided pt with community resources. At DC pt will want to go home and family can assist with transportation.
--- NOTE | 2025-10-09 11:02 | PN ---
[facility] PROGRESS NOTE Date of Service: Oct 09, 2025 Time of Service: 10:33 SUBJECTIVE: This is a 25-year-old male with past medical history of anxiety disorder,Bipolar and asthma who presents to the ED complaints of body aches, sore throat, fever, chills and cough which worsened today.Patient reports he has been having cough for the past 2 days and started having sore throat yesterday and patient took some Dayquil and in the morning he developed sore throat and in the afternoon he started having body aches and fever .Patient reports he vomited x 1 today so he decided to come to the Ed for evaluation.Patient denies recent travel and did not received flu shot he said.Patient reports his mother and stepdad are both sick and have the same symptoms but are taking meds and they are at home he said. Seen and examined patient in the ED awake,alert and coherent,patient states his right chest and right ribs hurts when he coughs.Patient denies palpitation,shortness of breath ,diarrhea and abdominal pain. Vital signs temp erature 101.5, heart rate 137, blood pressure 132/82 saturation 98% on room air. Labs: WBC 11 with negative left shift of neutrophils 82, hemoglobin 14, hematocrit 41, platelet count 246. Glucose 118, lactic acid 2.8, troponin less than four, the rest of the chemistry is unremarkable. Urinalysis is normal. Influenza type a and B negative, SARS COVID negative group a strep negative. EKG result revealed sinus tachycardia heart rate 130. Chest x-ray result revealed hyperinflated lungs likely mild bronchial asthma. No focal consultation, pneumonia, effusion or pneumothorax. While in the ER patient received Tylenol 650 mg p.o., Rocephin 1 g IV, Zofran 4 mg IV, 1 L NS bolus, Toradol 15 mg IV and Robitussin 100 mg p.o.. We will admit patient for further medical management. 10/09/2025: Patient is seen and evaluated at 304. Patient reports of headache rating it 4/10, it improved with acetaminophen. Patient also reports of cough, sputum cultures are send we are waiting for the reports. Patient is on Ceftriaxone and Doxycycline. Ordered CT chest w/o contrast to rule out pneumonia. Lactic acid (2.8 to 1.7) and WBC trending down (11.8 to 10.1). TSH is 0.28 , ordered free T3 and T4. REVIEW OF SYSTEMS CONSTITUTIONAL: Denies night sweats, fever and chills. No unintentional weight loss reported. NEUROLOGICAL: Complained of body aches Denies headache, amaurosis fugax, motor weakness, sensory deficit, vertigo/spinning sensation, gait abnormalities, or tremors. ENT: Complain of sore throat No hearing loss, otalgia, otorrhea, rhinitis, rhinorrhea, hoarseness. CARDIOVASCULAR: Denies any exertional angina, dyspnea on exertion, orthopnea, paroxysmal nocturnal dyspnea, palpitations, life-threatening arrhythmias, claudication. PULMONARY: Complained of productive Cough Denies any shortness of breath,hemoptysis. SLEEP: Denies morning headaches, daytime somnolence or napping. Denies difficulty falling asleep, staying asleep, waking from sleep. Denies knowledge of snoring. GASTROINTESTINAL: Denies any type of dysphagia to either liquids or solids. Denies nausea, vomiting ,pyrosis, early satiety, abdominal pain, diarrhea, constipation, or changes in stool consistency or caliber. Denies coffee-ground emesis, hematemesis, hematochezia, or melanotic stools. GENITOURINARY: Denies frequency, urgency, nocturia, hematuria or incontinence (Storage/Irritative symptoms.) Low urinary stream, straining to void, urinary intermittency or hesitancy, splitting of the voiding stream, terminal dribbling. ENDOCRINOLOGIC: Denies polyuria, polydipsia, polyphagia or heat/cold intolerances. HEMATOLOGIC: Denies thrombophilia/previous clots, or coagulopathy/bleeding disorders. ONCOLOGIC: Denies personal history of malignancy. DERMATOLOGIC: Denies rashes or pruritus. PSYCHIATRIC: Denies any suicidal or homicidal ideation. Denies hallucinations. PHYSICAL EXAM GENERAL APPEARANCE: The patient is awake, alert, and oriented, in no acute cardiopulmonary distress. NEUROLOGICAL: Cranial nerves II-XII grossly intact. Motor is 5/5 in bilateral upper and lower extremities proximal to distal. No sensory deficits. HEENT: Face is symmetric. Pupils are equal and reactive. Extraocular movements are intact. NECK: Supple. No JVD. No thyromegaly. No submental, submandibular, pre- /postauricular, occipital or supraclavicular lymphadenopathy. CHEST: Normal chest expansion. No Telemetry. LUNGS: Absence of any rales, rhonchi or any wheezing. CARDIOVASCULAR: Regular. S1 and S2 normal. No appreciable rubs, murmurs or gallops. ABDOMEN: Soft, nontender, and nondistended. There is no rebound, voluntary gu arding, or rigidity. : Deferred. No Orta. EXTREMITIES: Non-edematous and not cyanotic. No clubbing. Good capillary refill. SKIN: No skin breakdown. Vital Signs (last 8hr) Date Time Temp Pulse Resp B/P (MAP) Pulse Ox O2 Delivery O2 Flow Rate FiO2 10/09/25 10:02 100 Room Air* 0 10/09/25 08:00 99.1 113 20 126/71 100 Room Air 10/09/25 06:22 84 18 N/A Room Air 10/09/25 05:40 Room Air* 0 10/09/25 04:27 99.3 105 20 115/61 100 Room Air 10/09/25 04:25 17 N/A Room Air 10/09/25 04:01 99.0 100 18 99/51 99 Room Air* 0 10/09/25 03:24 99.0 104 20 99/58 99 Room Air* 0 21 LABS: Laboratory: Test 10/09/25 05:01 10/09/25 01:08 10/09/25 00:10 10/09/25 00:03 Range/Units White Blood Count 10.1 4.8-10.8 K/uL Red Blood Count 4.07 L 4.50-6.20 MIL/uL Hemoglobin 11.9 #L 14.0-18.0 g/dL Hematocrit 34.2 L 42-54 % Mean Corpuscular Volume 84.0 79-99 fL Mean Corpuscular Hemoglobin 29.2 27.0-33.0 pg Mean Corpuscular Hemoglobin Concent 34.8 32.0-36.0 g/dL Red Cell Distribution Width 12.9 11.0-15.5 % Platelet Count 199 130-400 K/uL Mean Platelet Volume 10.1 7.5-10.5 fL Immature Granulocyte % (Auto) 1.1 H 0-1 % Neutrophils (%) (Auto) 82.6 H 40.0-77.0 % Lymphocytes (%) (Auto) 7.5 L 21.0-51.0 % Monocytes (%) (Auto) 8.3 3.0-13.0 % Eosinophils (%) (Auto) 0.1 0.0-8.0 % Basophils (%) (Auto) 0.4 0.0-5.0 % Neutrophils # (Auto) 8.4 H 1.8-7.7 K/uL Lymphocytes # (Auto) 0.8 L 1.0-4.8 K/uL Monocytes # (Auto) 0.8 0.1-1.0 K/uL Eosinophils # (Auto) 0.01 0.00-0.70 K/uL Basophils # (Auto) 0.04 0.00-0.20 K/uL Absolute Immature Granulocyte (auto 0.11 0-1 K/uL Nucleated Red Blood Cells 0.0 0.0-0.19 % Erythrocyte Sedimentation Rate 1 0-15 MM/HR Sodium Level 140 136-145 mmol/L Potassium Level 3.7 3.5-5.1 mmol/L Chloride Level 107 101-111 mmol/L Carbon Dioxide Level 23 21-32 mmol/L Blood Urea Nitrogen 13 7-18 mg/dL Creatinine 1.2 0.5-1.3 mg/dL Glomerular Filtration Rate Calc 87 >90 mL/min Random Glucose 129 H 70-105 mg/dL Hemoglobin A1c 5.4 4.0-6.0 % Estimated Average Glucose (eAG) 108 70-126 mg/dL Lactic Acid Level 1.7 0.8-2.5 mmol/L Total Calcium 7.9 L 8.5-10.1 mg/dL Magnesium Level 1.80 1.80-2.40 mg/dL Total Bilirubin 0.3 0.2-1.0 mg/dL Aspartate Amino Transf (AST/SGOT) 13 10-37 U/L Alanine Aminotransferase (ALT/SGPT) 26 12-78 U/L Alkaline Phosphatase 55 50-136 U/L C-Reactive Protein, Quantitative 27.50 H 0.5-3.0 mg/L Total Protein 6.3 6.0-8.3 g/dL Albumin 3.4 L 3.5-5.0 g/dL Lipase 26 16-77 U/L Thyroid Stimulating Hormone (TSH) 0.28 L 0.36-3.74 uIU/mL Free Thyroxine (T4) Direct 0.88 0.76-1.46 ng/dL Free Triiodothyronine (T3) pg/mL 2.30 2.18-3.98 pg/mL Urine Color LIGHT-YELLOW YELLOW Urine Appearance CLEAR CLEAR Urine pH 8.0 5.0-8.0 Urine Specific [place] 1.020 1.001-1.031 Urine Protein NEGATIVE NEGATIVE mg/dL Urine Glucose (UA) NEGATIVE NEGATIVE mg/dL Urine Ketones NEGATIVE NEGATIVE mg/dL Urine Occult Blood NEGATIVE NEGATIVE Urine Nitrate NEGATIVE NEGATIVE Urine Bilirubin NEGATIVE NEGATIVE mg/dL Urine Urobilinogen 0.2 0.2-1.0 mg/dL Urine Leukocyte Esterase NEGATIVE NEGATIVE [place]/uL Influenza Type A Antigen Negative For Type A NEGATIVE Influenza Type B Antigen Negative For Type B NEGATIVE SARS-CoV-2 Antigen (Rapid) PRESUMPTIVE NEGATIVE NEGATIVE Group A Streptococcus Rapid negative NEGATIVE White Cell Morphology Comment See comments Total Creatine Kinase 121 21-232 U/L Troponin I High Sensitivity < 4 L 4-75 ng/L Current Medications Medications (Trade) Dose Ordered Sig/[place] Route PRN Reason Start Time Stop Time Status Last Admin Dose Admin Acetaminophen (TYLenol 325MG TAB) 650 mg Q4H PRN PO MILD PAIN (1-3) 10/09/25 03:30 11/08/25 03:29 10/09/25 09:22 650 MG Acetaminophen (TYLenol 325MG TAB) 650 mg Q6H PRN PO TEMPERATURE GREATER THAN 101.5 10/09/25 03:30 11/08/25 03:29 Albuterol (DUOneb) 1 udvial [id number] PRN IH sob/cough 10/09/25 03:30 11/08/25 03:29 Ceftriaxone Sodium 1 gm/ Sodium Chloride 50 ml @ 100 mls/hr Q24H IV 10/09/25 03:30 10/09/25 03:32 DC Ceftriaxone Sodium (ROCEphine 1G INJ) 1 gm Q24H IVPB 10/09/25 12:00 10/19/25 11:59 Doxycycline Hyclate 250 ml @ 250 mls/hr Q12H IV 10/09/25 03:30 10/19/25 03:29 10/09/25 04:10 250 MLS/HR Famotidine (Pepcid 20mg Tab) 20 mg DAILY PO 10/09/25 09:00 11/08/25 08:59 10/09/25 08:50 20 MG Guaifenesin/ Dextromethorphan (RobiTUSSin DM 200/20MG 10ML) 10 ml Q4H PRN PO COUGH 10/09/25 03:30 11/08/25 03:29 Magnesium Sulfate 50 ml @ 0 mls/hr PROTOCOL PRN IV PROTOCOL 10/09/25 07:30 11/08/25 07:29 10/09/25 08:50 25 MLS/HR Ondansetron HCl (zoFRAN 4MG INJ) 4 mg Q6H PRN IV NAUSEA/VOMITING 10/09/25 03:30 11/08/25 03:29 Potassium Chloride 100 ml @ 100 mls/hr AD PRN IV POTASSIUM PROTOCOL 10/09/25 07:30 11/08/25 07:29 Potassium Chloride (K-Dur/Klor-Con 20meq) 20 meq AD PRN PO POTASSIUM PROTOCOL 10/09/25 07:30 11/08/25 07:29 10/09/25 08:49 20 MEQ Potassium Chloride (KCl 10% Elixir 20meq/15ml) 20 meq AD PRN PO POTASSIUM PROTOCOL 10/09/25 07:30 11/08/25 07:29 Sodium Chloride 1,000 ml @ 100 mls/hr Q10H IV 10/09/25 03:30 11/08/25 03:29 10/09/25 04:10 100 MLS/HR DIAGNOSTICS / RADIOLOGY: [place] [address] IMAGING REPORT Signed PATIENT: HARJIT BORJA MR#: [id number] : 2000 SEX: M AGE: 25 LOCATION: [facility] ORDER STATUS: REG REPORT#: [id number] SERVICE REASON: sepsis , pneumonia ORDERING PHYSICIAN: DEMETRIO MIRANDA MD PROCEDURE: CXR1VW - CHEST 1VW EXAM: CR Chest, 1 view CLINICAL HISTORY: Sepsis. Pneumonia. COMPARISON: None provided. FINDINGS: Hyperinflated lungs, likely mild bronchial asthma. The lungs show no infiltrates or other acute findings. No pleural effusion or pneumothorax. The cardiomediastinal silhouette is within normal limits. No acute osseous abnormality. IMPRESSION: Hyperinflated lungs, likely mild bronchial asthma. No focal consolidation, pneumonia, effusion, or pneumothorax. /[place] DICTATED BY: ANDRIA AMADOR Jr., MD DATE: 10/09/25300 ELECTRONICALLY SIGNED BY: ANDRIA AMADOR Jr., MD DATE: 10/09/25300 ASSESSMENT: Sepsis due to suspected respiratory infection POA Mild Hypocalcemia PLAN: Sepsis due to suspected respiratory infection POA * Started NS @ 100 ml / hr x2 bags and re evaluate * Started on Rocephin 1 g IV and doxycycline IV ( Day 1) for broad-spectrum coverage * Urinalysis is normal. * Influenza type a and B negative, SARS COVID negative group a strep negative. * Chest x-ray result revealed hyperinflated lungs likely mild bronchial asthma. No focal consultation, pneumonia, effusion or pneumothorax. * Sputum cultures are send - reports pending. * Ordered CT chest w/o contrast to rule out pneumonia. * Lactic acid (2.8 to 1.7) and WBC trending down (11.8 to 10.1). Mild Hypocalcemia * Will follow up with tomorrow's labs Famotidine 20 mg for GI prophylaxis SCD's for DVT prophylaxis ATTESTATION BY PHYSICIAN I have seen and examined the patient. I reviewed the documentation, medical decision making, and treatment plan as noted by the resident provider above. I agree with the findings and plan of care. Stiven Ho MD, LAKSHMI MD Oct 09, 2025 11:02
--- NOTE | 2025-10-09 18:40 | NUR ---
DC INSTRUCTIONS PROVIDED TO DAUGHTER AND AKNOWLEDGED. IV REMOVED
[2025-10-10] VITALS (11 sets, daily range): BP systolic 108–130; BP diastolic 64–83; PULSE 61–100; RESP 16–20; TEMP 97.9–100.1; O2SAT 98–100
--- NOTE | 2025-10-10 03:02 | HMCIMG ---
EXAM: CT CHEST WITHOUT IV CONTRAST CLINICAL HISTORY: To rule out pneumonia as patient has sepsis. TECHNIQUE: Axial CT images of the chest were obtained without IV contrast administration. Multiplanar reconstructions. The protocol utilizes one or more of the following dose reduction techniques: automated exposure control, adjustment of mA and/or kV according to patient size, and/or use of iterative reconstruction technique. Total exam DLP is 217. CONTRAST: NONE COMPARISON: A prior chest radiograph dated 10/09/2025 performed at 11:46:04 IST is available for comparison. FINDINGS: LUNGS AND LARGE AIRWAYS: Clear. No ground-glass opacities or consolidation are seen. PLEURA: Unremarkable. No pleural effusion or thickening. HEART AND PERICARDIUM: The heart size is normal. There is no pericardial effusion. VESSELS: The thoracic aorta is nondilated. The pulmonary trunk is also of normal size. MEDIASTINUM AND SALIMA: There is no mediastinal or hilar adenopathy. The esophagus is collapsed. There is no hiatal hernia. SOFT TISSUES: Included thyroid gland is unremarkable. There is no axillary, supraclavicular, or lower cervical adenopathy. BONES: No suspicious lytic or blastic abnormality observed. UPPER ABDOMEN: Unremarkable. IMPRESSION: 1. No acute abnormality. Stable examination since the prior chest radiograph dated normal 2024 /[place]
[2025-10-10] MEDS: guaiFENesin-DM 200/20MG 10ML PO PRN (05:31)
[2025-10-10 05:49] LABS: IMMATURE GRANULOCYTE ABSOLUTE 0.06 K/uL (0-1); NUCLEATED RED BLOOD CELLS 0.0 % (0.0-0.19); PLATELET COUNT (AUTO) 203 K/uL (130-400); RED BLOOD CELL COUNT(AUTO) 4.56 MIL/uL (4.50-6.20); RED CELL DISTRIBUTION WIDTH 13.2 % (11.0-15.5); WHITE BLOOD COUNT (AUTO) 7.9 K/uL (4.8-10.8)
[2025-10-10 06:15] LABS: CREATININE 0.9 mg/dL (0.5-1.3); GLOMERULAR FILTR. RATE CALC 122.0 mL/min (>90); GLUCOSE,RANDOM 98.0 mg/dL (70-105); SODIUM SERUM 138.0 mmol/L (136-145); UREA NITROGEN, BLOOD 7.0 mg/dL (7-18)
[2025-10-10] MEDS: DOXYCYCLINE 100MG+NS 250ML 250 ML IV SCH (06:20)
[2025-10-10] MEDS: ZOSYN 3.375GM +NS 50ML IV SCH (08:55)
[2025-10-10 12:07] LABS: % IRON SATURATION 7.8 % (30-44); IRON, SERUM 19.0 mcg/dL (65-175)
--- NOTE | 2025-10-10 14:13 | PN ---
[facility] PROGRESS NOTE Date of Service: Oct 10, 2025 Time of Service: 14:05 SUBJECTIVE: This is a 25-year-old male with past medical history of anxiety disorder,Bipolar and asthma who presents to the ED complaints of body aches, sore throat, fever, chills and cough which worsened today.Patient reports he has been having cough for the past 2 days and started having sore throat yesterday and patient took some Dayquil and in the morning he developed sore throat and in the afternoon he started having body aches and fever .Patient reports he vomited x 1 today so he decided to come to the Ed for evaluation.Patient denies recent travel and did not received flu shot he said.Patient reports his mother and stepdad are both sick and have the same symptoms but are taking meds and they are at home he said. Seen and examined patient in the ED awake,alert and coherent,patient states his right chest and right ribs hurts when he coughs.Patient denies palpitation,shortness of breath ,diarrhea and abdominal pain. Vital signs temp erature 101.5, heart rate 137, blood pressure 132/82 saturation 98% on room air. Labs: WBC 11 with negative left shift of neutrophils 82, hemoglobin 14, hematocrit 41, platelet count 246. Glucose 118, lactic acid 2.8, troponin less than four, the rest of the chemistry is unremarkable. Urinalysis is normal. Influenza type a and B negative, SARS COVID negative group a strep negative. EKG result revealed sinus tachycardia heart rate 130. Chest x-ray result revealed hyperinflated lungs likely mild bronchial asthma. No focal consultation, pneumonia, effusion or pneumothorax. While in the ER patient received Tylenol 650 mg p.o., Rocephin 1 g IV, Zofran 4 mg IV, 1 L NS bolus, Toradol 15 mg IV and Robitussin 100 mg p.o.. We will admit patient for further medical management. 10/09/2025: Patient is seen and evaluated at 304. Patient reports of headache rating it 4/10, it improved with acetaminophen. Patient also reports of cough, sputum cultures are send we are waiting for the reports. Patient is on Ceftriaxone and Doxycycline. Ordered CT chest w/o contrast to rule out pneumonia. Lactic acid (2.8 to 1.7) and WBC trending down (11.8 to 10.1). TSH is 0.28 , ordered free T3 and T4. 10/10/2025: Patient is seen and evaluated in room 304. He reports a fever spike last night reaching 102.9F. He continues to have a non-productive cough and denies any vomiting. He has a history of a prior hospital admission in February for inflammatory colitis, which he left against medical advice. Workup for the source of infection is ongoing, and urine drug screen, MRSA nasal PCR, and malaria smear have been ordered. Infectious Disease has been consulted. Antibiotics have been adjusted: ceftriaxone has been discontinued, and the patient is currently on piperacillin-tazobactam (Zosyn), and doxycycline. REVIEW OF SYSTEMS CONSTITUTIONAL: Denies night sweats, fever and chills. No unintentional weight loss reported. NEUROLOGICAL: Denies headache, amaurosis fugax, motor weakness, sensory deficit, vertigo/spinning sensation, gait abnormalities, or tremors. ENT: Complain of sore throat No hearing loss, otalgia, otorrhea, rhinitis, rhinorrhea, hoarseness. CARDIOVASCULAR: Denies any exertional angina, dyspnea on exertion, orthopnea, paroxysmal nocturnal dyspnea, palpitations, life-threatening arrhythmias, claudication. PULMONARY: Complained of Cough Denies any shortness of breath,hemoptysis. SLEEP: Denies morning headaches, daytime somnolence or napping. Denies difficulty falling asleep, staying asleep, waking from sleep. Denies knowledge of snoring. GASTROINTESTINAL: Denies any type of dysphagia to either liquids or solids. Denies nausea, vomiting ,pyrosis, early satiety, abdominal pain, diarrhea, constipation, or changes in stool consistency or caliber. Denies coffee-ground emesis, hematemesis, hematochezia, or melanotic stools. GENITOURINARY: Denies frequency, urgency, nocturia, hematuria or incontinence (Storage/Irritative symptoms.) Low urinary stream, straining to void, urinary intermittency or hesitancy, splitting of the voiding stream, terminal dribbling. ENDOCRINOLOGIC: Denies polyuria, polydipsia, polyphagia or heat/cold intolerances. HEMATOLOGIC: Denies thrombophilia/previous clots, or coagulopathy/bleeding disorders. ONCOLOGIC: Denies personal history of malignancy. DERMATOLOGIC: Denies rashes or pruritus. PSYCHIATRIC: Denies any suicidal or homicidal ideation. Denies hallucinations. PHYSICAL EXAM GENERAL APPEARANCE: The patient is awake, alert, and oriented, in no acute cardiopulmonary distress. NEUROLOGICAL: Cranial nerves II-XII grossly intact. Motor is 5/5 in bilateral upper and lower extremities proximal to distal. No sensory deficits. HEENT: Face is symmetric. Pupils are equal and reactive. Extraocular movements are intact. NECK: Supple. No JVD. No thyromegaly. No submental, submandibular, pre-/ postauricular, occipital or supraclavicular lymphadenopathy. CHEST: Normal chest expansion. No Telemetry. LUNGS: Absence of any rales, rhonchi or any wheezing. CARDIOVASCULAR: Regular. S1 and S2 normal. No appreciable rubs, murmurs or gallops. ABDOMEN: Soft, nontender, and nondistended. There is no rebound, voluntary guarding, or rigidity. : Deferred. No Orta. EXTREMITIES: Non-edematous and not cyanotic. No clubbing. Good capillary refill. SKIN: No skin breakdown. Vital Signs (last 8hr) Date Time Temp Pulse Resp B/P (MAP) Pulse Ox O2 Delivery O2 Flow Rate FiO2 10/10/25 12:00 92 18 N/A Room Air 21 10/10/25 09:26 99 Room Air* 0 21 10/10/25 08:00 98.6 93 19 126/71 98 Room Air 21 10/10/25 07:35 100 18 N/A Room Air 21 LABS: Laboratory: Test 10/10/25 05:15 10/09/25 05:01 10/09/25 01:08 10/09/25 00:10 Range/Units White Blood Count 7.9 4.8-10.8 K/uL Red Blood Count 4.56 4.50-6.20 MIL/uL Hemoglobin 13.5 L 14.0-18.0 g/dL Hematocrit 39.1 L 42-54 % Mean Corpuscular Volume 85.7 79-99 fL Mean Corpuscular Hemoglobin 29.6 27.0-33.0 pg Mean Corpuscular Hemoglobin Concent 34.5 32.0-36.0 g/dL Red Cell Distribution Width 13.2 11.0-15.5 % Platelet Count 203 130-400 K/uL Mean Platelet Volume 10.2 7.5-10.5 fL Immature Granulocyte % (Auto) 0.8 0-1 % Neutrophils (%) (Auto) 70.6 40.0-77.0 % Lymphocytes (%) (Auto) 15.5 L 21.0-51.0 % Monocytes (%) (Auto) 12.7 3.0-13.0 % Eosinophils (%) (Auto) 0.1 0.0-8.0 % Basophils (%) (Auto) 0.3 0.0-5.0 % Neutrophils # (Auto) 5.6 1.8-7.7 K/uL Lymphocytes # (Auto) 1.2 1.0-4.8 K/uL Monocytes # (Auto) 1.0 0.1-1.0 K/uL Eosinophils # (Auto) 0.01 0.00-0.70 K/uL Basophils # (Auto) 0.02 0.00-0.20 K/uL Absolute Immature Granulocyte (auto 0.06 0-1 K/uL Nucleated Red Blood Cells 0.0 0.0-0.19 % Reticulocyte Count (auto) 1.25941 0.42-2.23 % Immature Reticulocyte Fraction 4.90 H 0.18-0.48 % Sodium Level 138 136-145 mmol/L Potassium Level 3.7 3.5-5.1 mmol/L Chloride Level 103 101-111 mmol/L Carbon Dioxide Level 24 21-32 mmol/L Blood Urea Nitrogen 7 7-18 mg/dL Creatinine 0.9 0.5-1.3 mg/dL Glomerular Filtration Rate Calc 122 >90 mL/min Random Glucose 98 70-105 mg/dL Total Calcium 8.5 8.5-10.1 mg/dL Iron Level 19 L 65-175 mcg/dL Total Iron Binding Capacity 243 L 250-450 mcg/dL Percent Iron Saturation 7.8 L 30-44 % Ferritin 243 30-400 ng/mL C-Reactive Protein, Quantitative 58.90 H 0.5-3.0 mg/L Vitamin B12 Level 327 193-986 pg/mL Erythrocyte Sedimentation Rate 1 0-15 MM/HR Hemoglobin A1c 5.4 4.0-6.0 % Estimated Average Glucose (eAG) 108 70-126 mg/dL Lactic Acid Level 1.7 0.8-2.5 mmol/L Magnesium Level 1.80 1.80-2.40 mg/dL Total Bilirubin 0.3 0.2-1.0 mg/dL Aspartate Amino Transf (AST/SGOT) 13 10-37 U/L Alanine Aminotransferase (ALT/SGPT) 26 12-78 U/L Alkaline Phosphatase 55 50-136 U/L Total Protein 6.3 6.0-8.3 g/dL Albumin 3.4 L 3.5-5.0 g/dL Lipase 26 16-77 U/L Procalcitonin < 0.05 L 0.05-0.5 ng/mL Thyroid Stimulating Hormone (TSH) 0.28 L 0.36-3.74 uIU/mL Free Thyroxine (T4) Direct 0.88 0.76-1.46 ng/dL Free Triiodothyronine (T3) pg/mL 2.30 2.18-3.98 pg/mL Urine Color LIGHT-YELLOW YELLOW Urine Appearance CLEAR CLEAR Urine pH 8.0 5.0-8.0 Urine Specific Millry 1.020 1.001-1.031 Urine Protein NEGATIVE NEGATIVE mg/dL Urine Glucose (UA) NEGATIVE NEGATIVE mg/dL Urine Ketones NEGATIVE NEGATIVE mg/dL Urine Occult Blood NEGATIVE NEGATIVE Urine Nitrate NEGATIVE NEGATIVE Urine Bilirubin NEGATIVE NEGATIVE mg/dL Urine Urobilinogen 0.2 0.2-1.0 mg/dL Urine Leukocyte Esterase NEGATIVE NEGATIVE Sumeet/uL Influenza Type A Antigen Negative For Type A NEGATIVE Influenza Type B Antigen Negative For Type B NEGATIVE SARS-CoV-2 Antigen (Rapid) PRESUMPTIVE NEGATIVE NEGATIVE Group A Streptococcus Rapid negative NEGATIVE Test 10/09/25 00:03 Range/Units White Cell Morphology Comment See comments Total Creatine Kinase 121 21-232 U/L Troponin I High Sensitivity < 4 L 4-75 ng/L Current Medications Medications (Trade) Dose Ordered Sig/Rivera Route PRN Reason Start Time Stop Time Status Last Admin Dose Admin Acetaminophen (TYLenol 325MG TAB) 650 mg Q4H PRN PO MILD PAIN (1-3) 10/09/25 03:30 11/08/25 03:29 10/09/25 09:22 650 MG Acetaminophen (TYLenol 325MG TAB) 650 mg Q6H PRN PO TEMPERATURE GREATER THAN 101.5 10/09/25 03:30 11/08/25 03:29 10/09/25 19:27 650 MG Albuterol (DUOneb) 1 udvial [id number] PRN IH sob/cough 10/09/25 03:30 11/08/25 03:29 Ceftriaxone Sodium 1 gm/ Sodium Chloride 50 ml @ 100 mls/hr Q24H IV 10/09/25 03:30 10/09/25 03:32 DC Ceftriaxone Sodium (ROCEphine 1G INJ) 1 gm Q24H IVPB 10/09/25 12:00 10/10/25 08:32 DC 10/09/25 11:58 1 GM Doxycycline Hyclate 250 ml @ 250 mls/hr Q12H IV 10/09/25 03:30 10/10/25 02:58 DC 10/09/25 19:23 250 MLS/HR Doxycycline Hyclate 250 ml @ 250 mls/hr Q12H IV 10/10/25 07:00 10/20/25 06:59 10/10/25 06:20 250 MLS/HR Famotidine (Pepcid 20mg Tab) 20 mg DAILY PO 10/09/25 09:00 11/08/25 08:59 10/10/25 08:55 20 MG Guaifenesin/ Dextromethorphan (RobiTUSSin DM 200/20MG 10ML) 10 ml Q4H PRN PO COUGH 10/09/25 03:30 11/08/25 03:29 10/10/25 05:31 10 ML Magnesium Sulfate 50 ml @ 0 mls/hr PROTOCOL PRN IV PROTOCOL 10/09/25 07:30 11/08/25 07:29 10/09/25 08:50 25 MLS/HR Ondansetron HCl (zoFRAN 4MG INJ) 4 mg Q6H PRN IV NAUSEA/VOMITING 10/09/25 03:30 11/08/25 03:29 Piperacillin Sod/ Tazobactam Sod (Zosyn 3.375gm+NS 50ml) 3.375 gm Q8H IV 10/10/25 08:30 10/20/25 08:29 10/10/25 08:55 3.375 GM Potassium Chloride 100 ml @ 100 mls/hr AD PRN IV POTASSIUM PROTOCOL 10/09/25 07:30 11/08/25 07:29 Potassium Chloride (K-Dur/Klor-Con 20meq) 20 meq AD PRN PO POTASSIUM PROTOCOL 10/09/25 07:30 11/08/25 07:29 10/09/25 08:49 20 MEQ Potassium Chloride (KCl 10% Elixir 20meq/15ml) 20 meq AD PRN PO POTASSIUM PROTOCOL 10/09/25 07:30 11/08/25 07:29 Sodium Chloride 1,000 ml @ 100 mls/hr Q10H IV 10/09/25 03:30 11/08/25 03:29 10/09/25 19:23 100 MLS/HR DIAGNOSTICS / RADIOLOGY: [facility] [address] [place] [address] IMAGING REPORT Signed PATIENT: HARJIT BORJA MR#: [id number] : 2000 SEX: M AGE: 25 LOCATION: 3AH ORDER 1015 STATUS: ADM IN REPORT#: [id number] SERVICE 1013 REASON: rule out pneumonia as patient has sepsis ORDERING PHYSICIAN: MELISSA PETERSON MD PROCEDURE: CHEST WO - CT CHEST W/O CONTRAST EXAM: CT CHEST WITHOUT IV CONTRAST CLINICAL HISTORY: To rule out pneumonia as patient has sepsis. TECHNIQUE: Axial CT images of the chest were obtained without IV contrast administration. Multiplanar reconstructions. The protocol utilizes one or more of the following dose reduction techniques: automated exposure control, adjustment of mA and/or kV according to patient size, and/or use of iterative reconstruction technique. Total exam DLP is 217. CONTRAST: NONE COMPARISON: A prior chest radiograph dated 10/09/2025 performed at 11:46:04 IST is available for comparison. FINDINGS: LUNGS AND LARGE AIRWAYS: Clear. No ground-glass opacities or consolidation are seen. PLEURA: Unremarkable. No pleural effusion or thickening. HEART AND PERICARDIUM: The heart size is normal. There is no pericardial effusion. VESSELS: The thoracic aorta is nondilated. The pulmonary trunk is also of normal size. MEDIASTINUM AND SALIMA: There is no mediastinal or hilar adenopathy. The esophagus is collapsed. There is no hiatal hernia. SOFT TISSUES: Included thyroid gland is unremarkable. There is no axillary, supraclavicular, or lower cervical adenopathy. BONES: No suspicious lytic or blastic abnormality observed. UPPER ABDOMEN: Unremarkable. IMPRESSION: 1. No acute abnormality. Stable examination since the prior chest radiograph dated 2024 /[place] DICTATED BY: MELA DOLAN MD DATE: 10/10/25401 ELECTRONICALLY SIGNED BY: MELA DOLAN MD DATE: 10/10/25401 ASSESSMENT: Sepsis due to suspected respiratory infection POA Mild Hypocalcemia - resolved PLAN: Sepsis due to suspected respiratory infection POA * Started NS @ 100 ml / hr x2 bags and re evaluate * Started on Zosyn IV (Day 1) and doxycycline IV ( Day 2) for broad-spectrum coverage * Urinalysis is normal. * Influenza type a and B negative, SARS COVID negative group a strep negative. * Chest x-ray result revealed hyperinflated lungs likely mild bronchial asthma. No focal consultation, pneumonia, effusion or pneumothorax. * Sputum cultures are send - reports pending. * CT chest w/o contrast - No abnormality noted * Lactic acid (2.8 to 1.7) and WBC trending down (from 11.8) * CRP - 58.90 Mild Hypocalcemia - resolved * 10/10/2025 - 8.5 Famotidine 20 mg for GI prophylaxis SCD's for DVT prophylaxis ATTESTATION BY PHYSICIAN I have seen and examined the patient. I reviewed the documentation, medical decision making, and treatment plan as noted by the resident provider above. I agree with the findings and plan of care. Stiven Ho MD, LAKSHMI MD Oct 10, 2025 14:12
[2025-10-10 17:44] LABS: AMPHET/METH SCREEN,URINE NEGATIVE (NEGATIVE); BARBITURATE SCREEN, URINE NEGATIVE (NEGATIVE); CANNABINOID SCREEN,URINE NEGATIVE (NEGATIVE); COCAINE SCREEN,URINE NEGATIVE (NEGATIVE)
[2025-10-11] VITALS (7 sets, daily range): BP systolic 114–123; BP diastolic 64–73; PULSE 61–84; RESP 18–20; TEMP 97.6–98.2; O2SAT 98–100
--- NOTE | 2025-10-11 04:57 | PN ---
INFECTIOUS DISEASE FOLLOWUP NOTE SUBJECTIVE: The patient is seen and examined at the bedside. No fever or chills. Has some cough, ____. No hemoptysis or pleuritic chest pain. Denies chest pain. Occasional orthopnea. No diarrhea. No abdominal pain. PHYSICAL EXAMINATION: VITAL SIGNS: Temperature 98.9. EYES: No icterus. Pupils equal and reactive. HENT: No oral thrush seen. Moist oral mucosa. NECK: Supple. No JVD or thyromegaly. LUNGS: Good air entry. No rales. No rhonchi. CARDIOVASCULAR: S1 and S2, regular. No murmur heard. ABDOMEN: Full, soft. Bowel sound is present. CENTRAL NERVOUS SYSTEM: Awake, alert, oriented x3. No focal deficits. SKIN: No rashes, no itchiness. LYMPHATIC: No peripheral lymphadenopathy. BACK: No deformity. No pressure ulcer. MUSCULOSKELETAL: No joint swelling, erythema or tenderness. ASSESSMENT: A 25-year-old young male who presented with ____ and cough. Problems include: * Possible viral syndrome. * Possible anasarca, pneumonia. * Debility. * ____. PLAN: * Continue his doxycycline. * Start the patient on ceftriaxone. * ____ vaporizing. * Continue ____. * Follow up cultures. * Continue ____. TID: [id number] RECEIPT: [id number]
[2025-10-11 05:26] LABS: IMMATURE GRANULOCYTE ABSOLUTE 0.03 K/uL (0-1); NUCLEATED RED BLOOD CELLS 0.0 % (0.0-0.19); PLATELET COUNT (AUTO) 190 K/uL (130-400); RED BLOOD CELL COUNT(AUTO) 4.75 MIL/uL (4.50-6.20); RED CELL DISTRIBUTION WIDTH 13.1 % (11.0-15.5); WHITE BLOOD COUNT (AUTO) 5.2 K/uL (4.8-10.8)
[2025-10-11 05:40] LABS: CREATININE 1.0 mg/dL (0.5-1.3); GLOMERULAR FILTR. RATE CALC 108.0 mL/min (>90); GLUCOSE,RANDOM 98.0 mg/dL (70-105); SODIUM SERUM 142.0 mmol/L (136-145); UREA NITROGEN, BLOOD 7.0 mg/dL (7-18)
--- NOTE | 2025-10-11 12:33 | PN ---
INFECTIOUS DISEASE PROGRESS NOTE Date of Service: Oct 11, 2025 SUBJECTIVE: This is a 25-year-old male patient with medical history of bipolar and asthma who presented to the hospital for evaluation of fever, chills, cough, sore throat and, body aches. On admission patient had a fever of 101.5 And the WBC was 11.8 With a lactic acid of 2.8. On admission A CT of the chest done on admission showed no acute abnormalities. Influenza and COVID 19 results came back negative. Patient is currently on Zosyn and doxycycline. We will discontinue Zosyn. In fectious Disease standpoint patient can be discharged on doxycycline 100 mg p.o. b.i.d. for 5 days when ready to discharge. Prescription was written. PHYSICAL EXAM EYES: Anicteric. Pupils equal and reactive. HENT: No oral thrush seen, moist Oral mucosa NECK: Supple, no JVD or thyromegaly. LUNGS: Good air entry. No rales, no rhonchi. CARDIOVASCULAR: S1, S2 regular. No murmur heard. ABDOMEN: Soft, non tender, bowel sounds present, no organomegaly CENTRAL NERVOUS SYSTEM: Awake, alert, oriented x 3. No focal deficits. SKIN: No rashes, no swelling. LYMPHATICS: No peripheral lymphadenopathy MUSCULOSKELETAL: No joint swelling, erythema or tenderness. EXTREMITIES: No cyanosis or clubbing BACK: No deformity, no pressure ulcer. GENITOURINARY: No dysuria or hematuria Vital Sign (Last 12 Hours) 10/11/25 10/11/25 10/11/25 10/11/25 03:35 06:49 08:00 08:00 Temp 98.2 97.5 Pulse 69 66 61 Resp 20 18 18 B/P (MAP) 118/64 114/73 Pulse Ox 99 98 98 O2 Delivery Room Air N/A Room Air Room Air Room Air* O2 Flow Rate 0 FiO2 21 21 10/11/25 10/11/25 11:29 11:51 Temp 97.7 Pulse 68 79 Resp 18 18 B/P (MAP) 120/68 Pulse Ox 98 O2 Delivery N/A Room Air Room Air FiO2 21 Intake & Output (last 24hrs) 10/10/25 10/10/25 10/11/25 15:00 23:00 07:00 Intake Total 100.0 ml 2200.0 ml 400 ml Balance 100.0 ml 2200.0 ml 400 ml LABS: Laboratory: Test 10/11/25 04:59 10/10/25 17:34 10/10/25 05:15 Range/Units White Blood Count 5.2 # 4.8-10.8 K/uL Red Blood Count 4.75 4.50-6.20 MIL/uL Hemoglobin 13.9 L 14.0-18.0 g/dL Hematocrit 41.4 L 42-54 % Mean Corpuscular Volume 87.2 79-99 fL Mean Corpuscular Hemoglobin 29.3 27.0-33.0 pg Mean Corpuscular Hemoglobin Concent 33.6 32.0-36.0 g/dL Red Cell Distribution Width 13.1 11.0-15.5 % Platelet Count 190 130-400 K/uL Mean Platelet Volume 10.3 7.5-10.5 fL Immature Granulocyte % (Auto) 0.6 0-1 % Neutrophils (%) (Auto) 51.4 40.0-77.0 % Lymphocytes (%) (Auto) 30.3 21.0-51.0 % Monocytes (%) (Auto) 15.6 H 3.0-13.0 % Eosinophils (%) (Auto) 1.5 0.0-8.0 % Basophils (%) (Auto) 0.6 0.0-5.0 % Neutrophils # (Auto) 2.7 1.8-7.7 K/uL Lymphocytes # (Auto) 1.6 1.0-4.8 K/uL Monocytes # (Auto) 0.8 0.1-1.0 K/uL Eosinophils # (Auto) 0.08 0.00-0.70 K/uL Basophils # (Auto) 0.03 0.00-0.20 K/uL Absolute Immature Granulocyte (auto 0.03 0-1 K/uL Nucleated Red Blood Cells 0.0 0.0-0.19 % Sodium Level 142 136-145 mmol/L Potassium Level 3.8 3.5-5.1 mmol/L Chloride Level 103 101-111 mmol/L Carbon Dioxide Level 28 21-32 mmol/L Blood Urea Nitrogen 7 7-18 mg/dL Creatinine 1.0 0.5-1.3 mg/dL Glomerular Filtration Rate Calc 108 >90 mL/min Random Glucose 98 70-105 mg/dL Total Calcium 9.1 8.5-10.1 mg/dL C-Reactive Protein, Quantitative 30.50 H 0.5-3.0 mg/L Urine Opiates Screen NEGATIVE NEGATIVE Urine Barbiturates Screen NEGATIVE NEGATIVE Urine Phencyclidine Screen NEGATIVE NEGATIVE Urine Amphetamines Screen NEGATIVE NEGATIVE Urine Benzodiazepines Screen NEGATIVE NEGATIVE Urine Cocaine Screen NEGATIVE NEGATIVE Urine Marijuana (THC) Screen NEGATIVE NEGATIVE Reticulocyte Count (auto) 1.38201 0.42-2.23 % Immature Reticulocyte Fraction 4.90 H 0.18-0.48 % Iron Level 19 L 65-175 mcg/dL Total Iron Binding Capacity 243 L 250-450 mcg/dL Percent Iron Saturation 7.8 L 30-44 % Ferritin 243 30-400 ng/mL Vitamin B12 Level 327 193-986 pg/mL ASSESSMENT: Sepsis. Possible viral syndrome. Possible pneumonia. Leukocytosis, resolved. Iron-deficiency anemia. History of asthma. PLAN: Discontinue Zosyn. Continue doxycycline. Patient can be discharged on doxycycline 100 mg p.o. b.i.d. for 5 days when ready to discharge. Prescription was written. This case was reviewed and discussed with my supervising physician Dr. Combs and the above assessment and plan was formulated and agreed upon. ATTESTATION BY PHYSICIAN I have seen and examined the patient. I reviewed the documentation, medical decision making, and treatment plan as noted by the mid-level provider above. I agree with the findings and plan of care. THEODORE COMBS MD, MIRTA L [facility] Oct 11, 2025 12:33
--- NOTE | 2025-10-11 14:18 | DS ---
Discharge Summary Hospital Course Summary: A 25-year-old male with a past medical history of anxiety disorder, bipolar disorder, and asthma presented to the emergency department with fever, chills, sore throat, cough, body aches, and one episode of vomiting. His symptoms had gradually worsened over two days. Initial evaluation showed a temperature of 101.5F, tachycardia, mild leukocytosis, and elevated lactic acid. Viral testing for influenza, COVID-19, and Group A strep was negative. Chest X-ray showed hyperinflated lungs consistent with asthma, with no pneumonia. He received Tylenol, IV fluids, antibiotics, Zofran, and cough medication and was admitted for further management. During hospitalization, he initially continued to experience cough and fever, but infectious workup,and MRSA PCR did not reveal a clear source. CT chest showed no pneumonia. Antibiotics were adjusted to Zosyn and doxycycline per Infectious Disease. His lactic acid improved from 2.8 to 1.7, and WBC trended down from 11.8 to 5.2. Today his CRP is 30.40. Iron studies revealed low iron saturation of 7.8%, for which one dose of IV Venofer was administered. The patient has been afebrile, feels improved, and reports no new complaints. The patient is stable for discharge. He is advised to follow up with his primary care physician for routine monitoring, review of lab results, and continued recovery. Given his history of inflammatory colitis, follow-up with Gastroenterology is recommended. He should return to the hospital if he develops fever, worsening cough, shortness of breath, chest pain, persistent vomiting, or any concerning symptoms. Branch Banker(s): PROGRESS NOTES Name: SIRIA BORJAS A Acct: [id number] MR: [id number] : 2000 Admit Date: 10/08/25 VANDANA RODNEY, FLIGHT SIMULATOR TEACHER [place] [id number] [place] [id number] INFECTIOUS DISEASE PROGRESS NOTE Date of Service: Oct 11, 2025 SUBJECTIVE: This is a 25-year-old male patient with medical history of bipolar and asthma w ho presented to the hospital for evaluation of fever, chills, cough, sore throat and, body aches. On admission patient had a fever of 101.5 And the WBC was 11.8 With a lactic acid of 2.8. On admission A CT of the chest done on admission showed no acute abnormalities. Influenza and COVID 19 results came back negative. PHYSICAL EXAM EYES: Anicteric. Pupils equal and reactive. HENT: No oral thrush seen, moist Oral mucosa NECK: Supple, no JVD or thyromegaly. LUNGS: Good air entry. No rales, no rhonchi. CARDIOVASCULAR: S1, S2 regular. No murmur heard. ABDOMEN: Soft, non tender, bowel sounds present, no organomegaly CENTRAL NERVOUS SYSTEM: Awake, alert, oriented x 3. No focal deficits. SKIN: No rashes, no swelling. LYMPHATICS: No peripheral lymphadenopathy MUSCULOSKELETAL: No joint swelling, erythema or tenderness. EXTREMITIES: No cyanosis or clubbing BACK: No deformity, no pressure ulcer. GENITOURINARY: No dysuria or hematuria Vital Sign (Last 12 Hours) 10/11/25 10/11/25 10/11/25 10/11/25 03:35 06:49 08:00 08:00 Temp 98.2 97.5 Pulse 69 66 61 Resp 20 18 18 B/P (MAP) 118/64 114/73 Pulse Ox 99 98 98 O2 Delivery Room Air N/A Room Air Room Air Room Air* O2 Flow Rate 0 FiO2 21 21 10/11/25 10/11/25 11:29 11:51 Temp 97.7 Pulse 68 79 Resp 18 18 B/P (MAP) 120/68 Pulse Ox 98 O2 Delivery N/A Room Air Room Air FiO2 21 Intake & Output (last 24hrs) 10/10/25 10/10/25 10/11/25 15:00 23:00 07:00 Intake Total 100.0 ml 2200.0 ml 400 ml Balance 100.0 ml 2200.0 ml 400 ml LABS: Laboratory: Test 10/11/25 04:59 10/10/25 17:34 10/10/25 05:15 Range/Units White Blood Count 5.2 # 4.8-10.8 K/uL Red Blood Count 4.75 4.50-6.20 MIL/uL Hemoglobin 13.9 L 14.0-18.0 g/dL Hematocrit 41.4 L 42-54 % Mean Corpuscular Volume 87.2 79-99 fL Mean Corpuscular Hemoglobin 29.3 27.0-33.0 pg Mean Corpuscular Hemoglobin Concent 33.6 32.0-36.0 g/dL Red Cell Distribution Width 13.1 11.0-15.5 % Platelet Count 190 130-400 K/uL Mean Platelet Volume 10.3 7.5-10.5 fL Immature Granulocyte % (Auto) 0.6 0-1 % Neutrophils (%) (Auto) 51.4 40.0-77.0 % Lymphocytes (%) (Auto) 30.3 21.0-51.0 % Monocytes (%) (Auto) 15.6 H 3.0-13.0 % Eosinophils (%) (Auto) 1.5 0.0-8.0 % Basophils (%) (Auto) 0.6 0.0-5.0 % Neutrophils # (Auto) 2.7 1.8-7.7 K/uL Lymphocytes # (Auto) 1.6 1.0-4.8 K/uL Monocytes # (Auto) 0.8 0.1-1.0 K/uL Eosinophils # (Auto) 0.08 0.00-0.70 K/uL Basophils # (Auto) 0.03 0.00-0.20 K/uL Absolute Immature Granulocyte (auto 0.03 0-1 K/uL Nucleated Red Blood Cells 0.0 0.0-0.19 % Sodium Level 142 136-145 mmol/L Potassium Level 3.8 3.5-5.1 mmol/L Chloride Level 103 101-111 mmol/L Carbon Dioxide Level 28 21-32 mmol/L Blood Urea Nitrogen 7 7-18 mg/dL Creatinine 1.0 0.5-1.3 mg/dL Glomerular Filtration Rate Calc 108 >90 mL/min Random Glucose 98 70-105 mg/dL Total Calcium 9.1 8.5-10.1 mg/dL C-Reactive Protein, Quantitative 30.50 H 0.5-3.0 mg/L Urine Opiates Screen NEGATIVE NEGATIVE Urine Barbiturates Screen NEGATIVE NEGATIVE Urine Phencyclidine Screen NEGATIVE NEGATIVE Urine Amphetamines Screen NEGATIVE NEGATIVE Urine Benzodiazepines Screen NEGATIVE NEGATIVE Urine Cocaine Screen NEGATIVE NEGATIVE Urine Marijuana (THC) Screen NEGATIVE NEGATIVE Reticulocyte Count (auto) 1.63236 0.42-2.23 % Immature Reticulocyte Fraction 4.90 H 0.18-0.48 % Iron Level 19 L 65-175 mcg/dL Total Iron Binding Capacity 243 L 250-450 mcg/dL Percent Iron Saturation 7.8 L 30-44 % Ferritin 243 30-400 ng/mL Vitamin B12 Level 327 193-986 pg/mL ASSESSMENT: Sepsis. Possible viral syndrome. Possible pneumonia. Leukocytosis, resolved. Iron-deficiency anemia. History of asthma. PLAN: Continue doxycycline. Continue Zosyn. Monitor electrolytes. Continue pain management. Continue GI prophylaxis. This case was reviewed and discussed with my supervising physician Dr. Combs and the above assessment and plan was formulated and agreed upon. ATTESTATION BY PHYSICIAN I have seen and examined the patient. I reviewed the documentation, medical decision making, and treatment plan as noted by the mid-level provider above. I agree with the findings and plan of care. THEODORE COMBS MD, [facility] Oct 11, 2025 12:33 Electronically Signed by: Electronically Co-Signed by: Procedure(s): [place] [address] [address] IMAGING REPORT Signed PATIENT: HARJIT BORJA MR#: [id number] : 2000 SEX: M AGE: 25 LOCATION: [facility] ORDER STATUS: [facility] REPORT#: [id number] SERVICE REASON: sepsis , pneumonia ORDERING PHYSICIAN: DEMETRIO MIRANDA MD PROCEDURE: CXR1VW - CHEST 1VW EXAM: CR Chest, 1 view CLINICAL HISTORY: Sepsis. Pneumonia. COMPARISON: None provided. FINDINGS: Hyperinflated lungs, likely mild bronchial asthma. The lungs show no infiltrates or other acute findings. No pleural effusion or pneumothorax. The cardiomediastinal silhouette is within normal limits. No acute osseous abnormality. IMPRESSION: Hyperinflated lungs, likely mild bronchial asthma. No focal consolidation, pneumonia, effusion, or pneumothorax. /[place] DICTATED BY: ANDRIA AMADOR Jr., MD DATE: 10/09/25300 ELECTRONICALLY SIGNED BY: ANDRIA AMADOR Jr., MD DATE: 10/09/25300 [facility] [address] [place] [address] IMAGING REPORT Signed PATIENT: HARJIT BORJA MR#: [id number] : 2000 SEX: M AGE: 25 LOCATION: 3A ORDER 1015 STATUS: ADM IN REPORT#: [id number] SERVICE 1013 REASON: rule out pneumonia as patient has sepsis ORDERING PHYSICIAN: MELISSA PETERSON MD PROCEDURE: CHEST WO - CT CHEST W/O CONTRAST EXAM: CT CHEST WITHOUT IV CONTRAST CLINICAL HISTORY: To rule out pneumonia as patient has sepsis. TECHNIQUE: Axial CT images of the chest were obtained without IV contrast administration. Multiplanar reconstructions. The protocol utilizes one or more of the following dose reduction techniques: automated exposure control, adjustment of mA and/or kV according to patient size, and/or use of iterative reconstruction technique. Total exam DLP is 217. CONTRAST: NONE COMPARISON: A prior chest radiograph dated 10/09/2025 performed at 11:46:04 IST is available for comparison. FINDINGS: LUNGS AND LARGE AIRWAYS: Clear. No ground-glass opacities or consolidation are seen. PLEURA: Unremarkable. No pleural effusion or thickening. HEART AND PERICARDIUM: The heart size is normal. There is no pericardial effusion. VESSELS: The thoracic aorta is nondilated. The pulmonary trunk is also of normal size. MEDIASTINUM AND SALIMA: There is no mediastinal or hilar adenopathy. The esophagus is collapsed. There is no hiatal hernia. SOFT TISSUES: Included thyroid gland is unremarkable. There is no axillary, supraclavicular, or lower cervical adenopathy. BONES: No suspicious lytic or blastic abnormality observed. UPPER ABDOMEN: Unremarkable. IMPRESSION: 1. No acute abnormality. Stable examination since the prior chest radiograph dated normal 2024 /[place] DICTATED BY: MELA DOLAN MD DATE: 10/10/25401 ELECTRONICALLY SIGNED BY: MELA DOLAN MD DATE: 10/10/25401 RUN DATE: 10/11/25 [facility] [address] RUN TIME: [address] [address], [place] [address] Department of Laboratories CLIA # [id number] Dairy Feed Worker: Tarah Hardin DO Specimen Report PATIENT: HARJIT BORJA ACCT: [id number] LOC: [facility] U: [id number] AGE/SX: 25/M ROOM: [facility] RE10/08/[address]: LIO HUERTA MD : 2000 BED: 1 DIS: STATUS: ADM IN TLOC: SPEC: [id number] MÓNICA: 10/09/25 STATUS: RES REQ: [id number] RECD: 10/09/[address]: DEMETRIO MIRANDA MD SOURCE: BLOOD ENTR: 10/09/[address] [facility] [address]: SELF,REFERRAL SPDES: ORDERED: BLOOD CULTURE COMMENTS: What is the Source? BLOOD Procedure Result Audie Date-Time BLOOD CULT Preliminary 10/11/25-0018 NO GROWTH AFTER 48 HOURS RUN DATE: 10/10/25 [facility] [address] RUN TIME: [address] [place] [address] Department of Laboratories CLIA # [id number] Dairy Feed Worker: Tarah Hardin DO Specimen Report PATIENT: HARJIT BORJA ACCT: [id number] LOC: [facility] U: [id number] AGE/SX: 25/M ROOM: 304 RE10/08/[address]: LIO HUERTA MD : 2000 BED: 1 DIS: STATUS: ADM IN TLOC: SPEC: [id number] MÓNICA: 10/09/25 STATUS: COMP REQ: [id number] RECD: 10/09/[address] [facility] [address]: DEMETRIO MIRANDA MD SOURCE: URINE CC ENTR: 10/09/[address] [facility] [address]: SELF,REFERRAL [facility]: ORDERED: URINE CULTURE Procedure Result Audie Date-Time URINE CULTURE Final 10/10/25-190 REPORT URINE 10,000 TO 50,000 CFU >3 COLONY TYPES PRESENT MIXED SKIN VERONICA CONTAMINATION NO FURTHER STUDIES PENDING RUN DATE: 10/11/25 [facility] [address] RUN TIME: [address] [address], [place] [address] Department of Laboratories IA # [id number] Dairy Feed Worker: Tarah Hardin DO Specimen Report PATIENT: HARJIT BORJA ACCT: [id number] LOC: [facility] U: [id number] AGE/SX: 25/M ROOM: [facility] RE10/08/[address]: LIO HUERTA MD : 2000 BED: 1 DIS: STATUS: ADM IN TLOC: SPEC: [id number] MÓNICA: 10/10/25-1110 STATUS: COMP REQ: [id number] RECD: 10/10/25-12[address] [facility] [address]: BRIAN BOND MD SOURCE: NASAL ENTR: 10/10/[address]: LIO HUERTA MD SPDC: NONE ORDERED: MRSA BY PCR ---- -------- Procedure Result Audie Date-Time MRSA NASAL SCREEN-PCR Final 10/11/25-1137 MRL RESULT: NEGATIVE FOR MRSA TARGET DNA. @ [facility] Test Performed at: [facility] [address], [place], [place] Medical Director Digital Analytics: Patricio Rascon D.O. Assessment/Plan: Discharge Diagnosis: Sepsis secondary to viral syndrome VS Atypical infection POA Respiratory infection ruled out Mild Hypocalcemia - resolved Viral syndrome - POA Leukocytosis, resolved. severe Iron-deficiency anemia with drop in hemoglobin . History of asthma. H/o inflammatory colitis Discharge Instructions: DATE OF ADMISSION: 10.09.2025 DATE OF DISCHARGE: 10.11.2025 DISPOSITION: home CONDITION: Medically stable CONSULTANTS: - Infectious disease FOLLOW UP APPOINTMENTS: Follow up with your primary care doctor in 3 to 5 days . Follow up with gastroenterology for history of inflammatory colitis and anemia SPECIFIC INSTRUCTIONS: Symptoms likely due to viral illness, continue supportive care Return to the ED for high fever, trouble breathing, chest pain, persistent vomiting, or worsening symptoms Use tylenol or ibuprofen as needed for fever or body aches Stay hydrated and take regular balanced diet Continue medications as prescribed PROCEDURES: none IMAGING: report attached to summary MICROBIOLOGY: report attached to summary HOME MEDICATIONS: see med rec NEW MEDICATIONS: See medication reconciliation EMERGENCY INSTRUCTIONS: The patient was instructed to present to the nearest Emergency department or call 911 once their symptoms will return or worsen. Home Medications: Active Scripts Doxycycline Hyclate (Doxycycline Hyclate) 100 Mg Tablet, 1 TAB PO BID for 5 Days, #10 TAB 0 Refills Prov:BRIAN BOND MD 10/11/25 Ferrous Sulfate (Iron) 325 Mg (65 Mg Iron) Tablet, 1 TAB PO QODAY for IRON DEFICIENCY ANEMIA for 15 Days, #30 TAB 0 Refills Prov:BRIAN BOND MD 10/11/25 Discontinued Scripts Ibuprofen (Ibuprofen 800 mg Tab) 800 Mg Tab, 800 MG PO Q8H PRN for fever or pain, #30 TAB 0 Refills Prov:JOAQUIN [address] PACKER OPERATOR 01/21/25 Cephalexin (Cephalexin) 500 Mg Capsule, 500 MG PO BID, #10 CAP 0 Refills Prov:GRACIA [address] PACKER OPERATOR 07/24/23 Time spent arranging discharge: 1-30 minutes ATTESTATION BY PHYSICIAN I have seen and examined the patient. I reviewed the documentation, medical d ecision making, and treatment plan as noted by the resident provider above. I agree with the findings and plan of care. Stiven Ho MD, LAKSHMI MD Oct 11, 2025 14:18 BRIAN BOND MD Oct 11, 2025 15:11
[2025-10-11] MEDS ORDERED: FERR-82 PO (15:09)
--- NOTE | 2025-10-11 15:12 | NUR ---
DC ORDERS IN PLACE; PATIENT STILL RUNNING VENOFER VIA IV. PER PROVIDER, PATIENT TO BE DISCHARGED POST VENOFER ADMINISTRATION.
--- NOTE | 2025-10-11 16:46 | NUR ---
PATIENT DISCHARGED. IV REMOVED INTACT. EDUCATION PROVIDED ON FOLLOW UP APPOINTMENTS AND PRESCRIPTIONS. ALL QUESTIONS AND CONCERNS ANSWERED. PATIENT VERBALIZED UNDERSTANDING. ALL BELONGINGS GATHERED AND TAKEN BY PATIENT. PATIENT TRANSPORTED DOWNSTAIRS VIA WHEELCHAIR ALERT AND ORIENTED X 4
[2025-10-11] MEDS ORDERED: DOXY100T2 PO (17:33)
== END 2025-10-11 17:02 | disposition home or self-care (01) | DRG 872 ==
LOC: EDH 23:53 → OBSVTOIN 23:54 → EDHIP 23:54 → 3AH 10-09 04:06
PROVIDERS: ADMIT Hospitalist; ATTEND Hospitalist
DX: A41.9 Sepsis, unspecified organism (principal); E87.20 Acidosis, unspecified; E83.51 Hypocalcemia; N17.9 Acute kidney failure, unspecified; R65.20 Severe sepsis without septic shock; J45.909 Unspecified asthma, uncomplicated; D50.9 Iron deficiency anemia, unspecified; F31.9 Bipolar disorder, unspecified; B34.9 Viral infection, unspecified; J98.4 Other disorders of lung; F41.9 Anxiety disorder, unspecified; K21.9 Gastro-esophageal reflux disease without esophagitis; Z82.0 Family history of epilepsy and other diseases of the nervous system
CPT/HCPCS: 36415; 71045; 71250; 80048; 80053; 80305; 81003; 82550; 82607; 82728; 83036; 83605; 83690; 83735; 84145; 84439; 84443; 84481; 84484; 85025; 85651; 86140; 87040; 87086; 87207; 87426; 87641; 87804; 87880; 93005; 94640; 94664; 96361; 96374; 96375; 99285; G0378; J0696; J1756; J1885; J2405; J2543; J3475; J3490; J7030; J7050